=== PATIENT | female | born 1965 | race Caucasian/White ===

== ENCOUNTER 2021-11-23 19:21 | Emergency (ER) | payer MEDICAID, SELFPAY ==
[2021-11-23 19:28] VITALS: BP 150/79; PULSE 94; RESP 20; TEMP 37.2; O2SAT 98; BMI 27.4
--- NOTE | 2021-11-23 19:40 | ED.PSYCH ---
HPI - Psych General Chief Complaint: Psychiatric Symptoms <RONNELL Lainez Last Filed: 11/23/21 20:12> Stated Complaint: crisis <RONNELL Lainez Last Filed: 11/23/21 20:12> Time Seen by Provider: 11/23/21 19:25 <RONNELL Lainez Last Filed: 11/23/21 20:12> Source: patient and EMS <RONNELL Lainez Last Filed: 11/23/21 20:12> Mode of arrival: EMS <RONNELL Lainez Last Filed: 11/23/21 20:12> Limitations: no limitations <RONNELL Lainez Last Filed: 11/23/21 20:12> History of Present Illness HPI Narrative: 56 yo female here with reports of feeling anxious, depressed after finding out that her son suddenly tonight. Patient tells me that her son was incarcerated but was released yesterday. She left him this evening and when out to dinner. While she was eating dinner her neighbor called to let her know that her son had overdosed. Patient tells me she drove home and when she was there police on the scene told her that her son had . She became quite upset. Patient tells me that she is was very anxious, tearful and told EMS I wish I was . on arrival the patient tells me she is not feeling suicidal. She is feeling quite anxious and depressed about her son passing away but denies any suicidal or homicidal ideations. She was she is to be discharged home and is here with family <RONNELL Lainez Last Filed: 11/23/21 20:12> Related Data Allergies/Adverse Reactions: Allergies Allergy/AdvReac Type Severity Reaction Status Date / Time aspirin [ASA] Allergy Mild STOMACH Unverified 06/01/20 15:32 UPSET cephalexin Allergy Unknown Verified 02/09/19 00:00 naproxen Allergy Unknown Verified 06/09/18 00:00 <RONNELL Lainez Last Filed: 11/23/21 20:12> Review of Systems Review of Systems: Yes all other systems are reviewed and are negative <RONNELL Lainez Last Filed: 11/23/21 20:12> Constitutional: Constitutional: Reports no additional constitutional complaints, Denies body ache(s), Denies chills, Denies fever(s), Denies headache(s) and Denies weakness <Romana Hernandez NP - Last Filed: 11/23/21 20:12> Eyes: Eyes: Reports no additional eye complaints and Denies change in vision <Romana Hernandez NP - Last Filed: 11/23/21 20:12> ENT: Reports system reviewed and no additional complaints, except as documented, Denies dizziness, Denies headache(s), Denies nasal congestion, Denies nasal discharge and Denies neck pain <Romana Hernandez NP - Last Filed: 11/23/21 20:12> Cardiovascular: Cardiovascular: Reports no additional cardiovascular complaints, Denies chest pain, Denies leg edema and Denies dyspnea <Romana Hernandez NP - Last Filed: 11/23/21 20:12> Respiratory: Respiratory: Reports no additional respiratory complaints, Denies cough and Denies dyspnea <Romana Hernandez NP - Last Filed: 11/23/21 20:12> Gastrointestinal: Gastrointestinal: Reports no additional gastrointestinal complaints, Denies abdominal pain, Denies diarrhea, Denies nausea and Denies vomiting <Romana Hernandez NP - Last Filed: 11/23/21 20:12> Genitourinary: Genitourinary: Reports no additional female genitourinary complaints and Denies urinary incontinence <Romana Hernandez NP - Last Filed: 11/23/21 20:12> Musculoskeletal: Musculoskeletal: Reports no additional musculoskeletal complaints, Denies back pain, Denies arthralgias, Denies joint swelling, Denies neck pain, Denies numbness and Denies tingling <Romana Hernandez NP - Last Filed: 11/23/21 20:12> Integumentary/Breasts: Skin/Breast: Reports system reviewed and no additional complaints, except as docu and Denies rash <Romana Hernandez NP - Last Filed: 11/23/21 20:12> Neurologic: Reports system reviewed and no additional complaints, except as documented, Denies Abnormal speech present, Denies dizziness, Denies headache(s), Denies numbness, Denies tingling and Denies weakness <Romana Hernandez NP - Last Filed: 11/23/21 20:12> Psychiatric: Psychiatric: Reports anxiety, Reports depression, Denies homicidal ideation and Denies suicidal ideation <Romana Hernandez NP - Last Filed: 11/23/21 20:12> [facility], [facility] Past Medical History Attestation statement: The following information was validated with the patient. <Romana Hernandez NP - Last Filed: 11/23/21 20:12> Source: old records reviewed and nursing notes reviewed <Romana Hernandez NP - Last Filed: 11/23/21 20:12> Social History Social History: Social History Advance Directives: No Advance Directives Information Provided: No Patient : No <Romana Hernandez NP - Last Filed: 11/23/21 20:12> Physical Exam Vital Signs: Vital Signs: Last Vital Signs Temp 99 F 11/23/21 19:28 Pulse 94 11/23/21 19:28 Resp 20 11/23/21 19:28 BP 150/79 H 11/23/21 19:28 Pulse Ox 98 11/23/21 19:28 BMI result Body Mass Index 27.4 <Romana Hernandez NP - Last Filed: 11/23/21 20:12> Const: Other: +anxious <Romana Hernandez NP - Last Filed: 11/23/21 20:12> Orientation/consciousness: patient oriented x3 <Romana Hernandez NP - Last Filed: 11/23/21 20:12> Limitations: no limitations <Romana Hernandez NP - Last Filed: 11/23/21 20:12> HENMT: Head: Yes normal to inspection <RONNELL Lainez Last Filed: 11/23/21 20:12> Ears: hearing grossly normal bilaterally <Romana Hernandez NP - Last Filed: 11/23/21 20:12> General nose exam: Normal external nose present <Romana Hernandez NP - Last Filed: 11/23/21 20:12> Face and sinus: Yes normal facial exam <Romana Hernandez NP - Last Filed: 11/23/21 20:12> Mouth: Normal oral and palatal mucosa present <Romana Hernandez NP - Last Filed: 11/23/21 20:12> Throat: Yes posterior oropharynx normal <Romana Hernandez NP - Last Filed: 11/23/21 20:12> Eyes: General: appearance normal, both eyes and all related structures <Romana Hernandez NP - Last Filed: 11/23/21 20:12> Pupils: Equal, round and reactive pupils present <Romana Hernandez NP - Last Filed: 11/23/21 20:12> Neck: Neck: Yes normal visual inspection <Romana Hernandez NP - Last Filed: 11/23/21 20:12> Chest: Chest palpation & inspection: normal inspection of the chest <Romana Hernandez NP - Last Filed: 11/23/21 20:12> Resp: Effort & Inspection: normal respiratory effort <Romana Hernandez NP - Last Filed: 11/23/21 20:12> Auscultation: clear to auscultation bilaterally <Romana Hernandez NP - Last Filed: 11/23/21 20:12> Cardio: Rate: regular rate <Romana Hernandez NP - Last Filed: 11/23/21 20:12> Rhythm: regular rhythm <Romana Hernandez NP - Last Filed: 11/23/21 20:12> Peripheral pulses: Peripheral pulses 2+ throughout <Romana Hernandez NP - Last Filed: 11/23/21 20:12> GI: Inspection: Yes normal to inspection <Romana Hernandez NP - Last Filed: 11/23/21 20:12> Palpation (GI): Soft to palpation and nontender <Romana Hernandez NP - Last Filed: 11/23/21 20:12> Auscultation: normal bowel sounds <Romana Hernandez NP - Last Filed: 11/23/21 20:12> Back/Spine/Pelvis: Thoracic/Lumbar Spine: thoracic and lumbar spine normal to inspection <Romana Hernandez NP - Last Filed: 11/23/21 20:12> Skin: General skin exam: no rashes or lesions noted <Romana Hernandez NP - Last Filed: 11/23/21 20:12> Neuro: General: patient oriented x3, no focal motor deficits and normal sensation to monofilament <Romana Hernandez NP - Last Filed: 11/23/21 20:12> Cranial nerves: Yes CN's II-XII intact bilaterally and Yes Equal, round and reactive pupils present <Romana Hernandez NP - Last Filed: 11/23/21 20:12> Cognition (Neuro): normal cognition <Romana Hernandez NP - Last Filed: 11/23/21 20:12> Speech: No Abnormal speech present <Romana Hernandez NP - Last Filed: 11/23/21 20:12> Gait exam (Neuro): Normal gait present <Romana Hernandez NP - Last Filed: 11/23/21 20:12> Motor exam (neuro): 5/5 motor strength present throughout <Romana Hernandez NP - Last Filed: 11/23/21 20:12> Extrem: General: Yes normal to inspection <Romana Hernandez NP - Last Filed: 11/23/21 20:12> Course Course Course Narrative: 56 yo female here with grief response after finding out her son unexpectedly. D/t anxiety patient offered Po ativan but patient declined. there was initial concern for suicidal ideations but the patient tells me that when she 1st found out that he had she made a statement that she wished she was but she denies any suicidal ideation or homicidal ideations. She is alert and oriented x3. She is here with family and feels safe being discharged home. she does not want to speak to crisis or social work. I spoke to her aunt who is with her and she feels comfortable with the patient being discharged in her care. Reviewed worrisome signs and symptoms of when to return to the emergency department. Comfortable discharge home. <Romana Hernandez NP - Last Filed: 11/23/21 20:12> MDM - Psych Medical Records Attestation: I reviewed the patient's medical records. <Romana Hernandez NP - Last Filed: 11/23/21 20:12> Lab Data Attestation: I reviewed the patient's lab results. <Romana Hernandez NP - Last Filed: 11/23/21 20:12> Discharge Plan Discharge Clinical Impression: Grief at loss of child <Romana Hernandez NP - Last Filed: 11/23/21 20:12> Patient Disposition: Home, Self-Care <Romana Hernandez NP - Last Filed: 11/23/21 20:12> Instructions: Grief and Loss (ED) <Romana Hernandez NP - Last Filed: 11/23/21 20:12> Referrals: ED Physician,Generic [Physician] - 2 days (as needed) <Romana Hernandez NP - Last Filed: 11/23/21 20:12> Interventions: ED Discharge Assessment Last Done: 11/23/21 20:08 <Romana Hernandez NP - Last Filed: 11/23/21 20:12> Discharge Date/Time: 11/23/21 22:32 <Romana Hernandez NP - Last Filed: 11/23/21 20:12>
[2021-11-23] MEDS: LORazepam 1 MG TABLET 2 MG PO (19:44)
== END 2021-11-23 22:32 | disposition home or self-care (01) ==
LOC: HO.ED 20:11
PROVIDERS: Emergency Provider Emergency Medicine
DX: F43.20 Adjustment disorder, unspecified (principal); Z63.4 Disappearance and death of family member
CPT/HCPCS: 99282; 99283

== ENCOUNTER 2021-12-25 15:22 | Outpatient (REF) | payer MEDICAID, SELFPAY ==
--- NOTE | ~2021-12-25 | US_ITS ---
EXAMINATION: US EXTREMITY NONVASCULAR, LEFT CLINICAL INFORMATION: Pain left knee. Assess for Simons's cyst. COMPARISON: Venous ultrasound with Doppler 04/07/2019. TECHNIQUE: Ultrasound left lower extremity is targeted to the popliteal fossa. Grayscale imaging is performed. FINDINGS: There is no visible popliteal fossa cyst. No cystic or solid mass. No edema tracking in soft tissue planes. No skin thickening. US/US extremity nonvascular IMPRESSION: Unremarkable exam. No visible popliteal fossa cyst.
== END 2021-12-25 15:23 | disposition home or self-care (01) ==
LOC: HO.US 15:22
PROVIDERS: PCP Nurse Practitioner Primary Care; Visit Provider Nurse Practitioner Primary Care
DX: M25.562 Pain in left knee (principal)
CPT/HCPCS: 76882

== ENCOUNTER 2022-04-08 17:45 | Emergency (ER) | payer MEDICAID, SELFPAY ==
[2022-04-08 17:51] VITALS: BP 142/67; PULSE 73; RESP 16; TEMP 36.9; O2SAT 96; BMI 28.5
--- NOTE | 2022-04-08 19:19 | ED_ITS ---
HPI - General Adult General Chief complaint: Skin/Abscess/Foreign Body Stated complaint: rash all over body/headaches Time Seen by Provider: 04/08/22 19:03 Source: patient, RN notes reviewed and old records reviewed Mode of arrival: ambulatory Limitations: no limitations History of Present Illness HPI narrative: This is a 43-lams-flq-female, with a past medical history of TIA in 2019, bipolar disorder, and hypertension, who presents to the emergency department with complaints of rash, headache and myalgias x 3 days. She states that three days ago, she woke up with a diffuse, pimply like, itchy rash all over her body. She states that the rash became more flat over the last day. She states that the rash was very itchy, and is less itchy now. She denies any new soaps, lotions, or detergents. She states that she just started taking black cohosh 2 weeks ago. She states that she stayed at [facility] last week, otherwise no other new sleeping arragements. She lives alone. She states that she also had a headache as well as body aches over the last 3 days. She states that she has been taking Tylenol and ibuprofen for her symptoms, which decreases her headache pain, but the headache never goes away. Denies any fevers, nausea, or vomiting. She states that her urine has been darker since starting black cohosh, no dysuria, or hematuria. She admits to having alot of stressors as her son in November 2021 from an overdose. No other complaints or concerns at this time. MD complaint: Rash and headaches x 3 days. Onset (ago): day(s) Location: head Radiation: non-radiation Severity: moderate Severity scale (1-10): 6 Quality: aching Pain Consistency: constant Relieving factors: medication Exacerbating factors: none Associated symptoms: rash Treatments prior to arrival: none Related Data Previous Rx's Medication Instructions Recorded cyclobenzaprine 10 mg tablet 10 mg PO BEDTIME PRN muscle spasm 04/08/22 #5 tabs diphenhydramine HCl 25 mg capsule 50 mg PO Q8H PRN itching #14 caps 04/08/22 (Benadryl) prednisone 50 mg tablet 50 mg PO DAILY #5 tabs 04/08/22 Allergies Allergy/AdvReac Type Severity Reaction Status Date / Time aspirin [ASA] Allergy Mild STOMACH Unverified 06/01/20 15:32 UPSET cephalexin Allergy Unknown Verified 02/09/19 00:00 naproxen Allergy Unknown Verified 06/09/18 00:00 Review of Systems Review of Systems: Constitutional: No Fever, No Chills ENT/Mouth: No sore throat, No Rhinorrhea, No Swallowing Difficulty Eyes: No Eye Pain, No Swelling, No Redness Cardiovascular: No Chest Pain, No SOB, No Orthopnea, No Edema Respiratory: No Cough, No Sputum, No Wheezing, No dyspnea Gastrointestinal: No Nausea, No Vomiting, No Diarrhea, No abdominal Pain, No Hematochezia, No Melena Genitourinary: No Dysuria, No Urinary Frequency, No Hematuria Musculoskeletal: No joint pain, No Myalgias Skin: +rash, No Skin Lesions Neuro: +headache, No Weakness, No Numbness, No Dizziness Psych: No Anxiety/Panic, No Depression Heme/Lymph: No Bruising, No Lymphadenopathy Endocrine: No Polyuria, No Polydipsia PMFSH Social History Social History Advance Directives: No Advance Directives Information Provided: No Physical Exam ED Vital Signs: Vital Signs - 24 hr 04/08/22 17:51 Temperature 98.4 F Pulse Rate 73 Respiratory Rate 16 Blood Pressure 142/67 H Pulse Oximetry 96 Oxygen Delivery Method Room Air BMI result Body Mass Index 28.5 Appearance: Alert. Oriented X3. No acute distress. Resting comfortably in stretcher. Eyes: Pupils equal, round and reactive to light. EOMI ENT: Pharynx normal. Uvula midline. Oral pharynx nonerythematous, nonedematous. Tonsils are nonexudative. Tolerating oral secretions well. Neck: Normal inspection. Neck supple. CVS: Normal heart rate and rhythm. S1S2 regular. Pulses normal. Respiratory: No respiratory distress. Breath sounds normal. Lungs clear to auscultation bilaterally, no wheezes, rhonchi or rales. No stridor. Abdomen: Soft and nontender. +BS x4 Skin: Diffuse flat erythematous macules noted to the anterior and posterior tr unk, blanchable. No warmth, drainage or edema. Extremities: No lower extremity edema. Musculoskeletal: Bilateral cervical paraspinal muscle tenderness with spasms noted. Bilateral trapezial tenderness noted bilaterally. Tenderness to palpation at the occiput, with spasm noted. Full ROM of the neck. Neuro: Oriented X 3. No motor deficit. No sensory deficit. Course Course Course Narrative: This is a 22-ylmo-gaz-female who presents today with complaints of rash, headaches, and body aches x 3 days. Patient has no new soaps, lotions, detergents. She started taking black cohosh 2 weeks ago, also slept at [facility] last week. Rash appears to be allergic in nature. Patient's vital signs with in normal limits. No respiratory distress, tolerating secretions well. Patient also noted to have significant muscle spasms in her cervical paraspinous muscles and trapezial muscles, experiencing headaches over the last 3 days not resolving with tylenol/motrin. She has been under alot of stress due to recent of her son several months ago. Requesting urine to be tested as her urine has been dark since starting black cohosh, urinalysis pending at this time. Patient will be medicated in the department with benadryl 50mg PO and prednisone 50mg PO. Discharge Plan Discharge Clinical Impression: Contact dermatitis, Acute tension headache Patient Disposition: Home, Self-Care Instructions: Contact Dermatitis (ED), Tension Headache (ED), Acute Headache (ED) Additional Instructions: You were given your first dose of prednisone in the emergency department today. You can take your second dose of prednisone starting tomorrow (04/09/2022). You may take Benadryl as directed as needed for itching. This may cause drowsiness, do not drink alcohol or drive while taking this medication. You may take Flexeril as directed as needed for muscle spasms. This will help with the headache pain you are experiencing. If you develop new or worsening symptoms call 911 or come back to the ER for fu rther evaluation. Prescriptions: New prednisone 50 mg tablet 50 mg PO DAILY Qty: 5 0RF cyclobenzaprine 10 mg tablet 10 mg PO BEDTIME PRN (Reason: muscle spasm) Qty: 5 0RF diphenhydramine HCl [Benadryl] 25 mg capsule 50 mg PO Q8H PRN (Reason: itching) Qty: 14 0RF
[2022-04-08] MEDS: predniSONE 10 MG TABLET 50 MG PO (19:37)
[2022-04-08] MEDS: diphenhydrAMINE HCL 25 MG TABLET 50 MG PO (19:37)
== END 2022-04-08 20:41 | disposition home or self-care (01) ==
PROVIDERS: Emergency Provider Emergency Medicine; PCP Nurse Practitioner Primary Care
DX: L25.9 Unspecified contact dermatitis, unspecified cause (principal); G44.209 Tension-type headache, unspecified, not intractable; R21 Rash and other nonspecific skin eruption
CPT/HCPCS: 99282; 99283; Q0163

== ENCOUNTER 2023-01-22 11:30 | Outpatient (REF) | payer MEDICAID, SELFPAY ==
[2023-01-22 13:42] LABS: Vitamin B12 784 pg/mL (200-900)
[2023-01-24 05:33] LABS: Lyme Abs Screen <0.90 index
== END 2023-01-22 11:31 | disposition home or self-care (01) ==
LOC: HO.LAB 11:30
PROVIDERS: PCP Nurse Practitioner Primary Care; Visit Provider Psychiatry & Neurology Neurology
DX: G31.84 Mild cognitive impairment of uncertain or unknown etiology (principal)
CPT/HCPCS: 36415; 82607; 86617; 86618

== ENCOUNTER 2023-02-25 13:42 | Outpatient (REF) | payer MEDICAID, SELFPAY ==
--- NOTE | ~2023-02-25 | MM_ITS ---
EXAMINATION: MM DIAGNOSTIC DIGITAL BREAST TOMOSYNTHESIS, BILATERAL US DIAGNOSTIC ULTRASOUND BREAST, LEFT CLINICAL INFORMATION: Chronic tender palpable nodule posterior lateral left breast. No discharge. No erythema. Prior mammography 2009. The lifetime risk of breast cancer based on the Tyrer-Cuzick Model is 7%. COMPARISON: Mammography: 02/20/2010 TECHNIQUE: Digital breast tomosynthesis is performed in both the craniocaudal and mediolateral oblique views along with computer-aided detection (CAD). Synthesized 2D images are generated from the tomosynthesis. Additional exaggerated left CC view is obtained. Ultrasound left breast is targeted to the area of palpable concern posterior 3:00 position. Grayscale imaging and color Doppler are performed without and with harmonics. FINDINGS: There are scattered areas of fibroglandular density (ACR BI-RADS breast composition Category b). The palpable concern posterior 3:00 left breast corresponds to a superficial circumscribed bilobed nodule, overall size approximately 1.6 x 1.1 cm. There is no surrounding spiculation or associated calcification. No skin thickening or coarsening of the Wilberto's ligaments. The axilla are unremarkable. The remainder of the bilateral breasts are unremarkable. No significant mass or architectural abnormality. No abnormal calcifications. Ultrasound targeted to the palpable area outer left breast demonstrates a superficial circumscribed hypoechoic bilobed nodule residing adjacent to the deep dermis with overall dimensions approximately 1.6 x 1.1 cm, long axis parallel with the skin. There is subtle thin stalk-like extension into the skin from the smaller moiety. There is hyperemia around the lesion on color Doppler along with scattered internal color flow. There is increased through-transmission of sound. No skin thickening or edema tracking in soft tissue planes. Results are discussed with the patient at time of visit. The palpable finding left breast most likely represents inflamed sebaceous cyst with subdermal extension. Surgical consult is recommended for management. MM/MM tomosynthesis diagnostic BI IMPRESSION: Left: -Palpable concern likely inflamed sebaceous cyst with subdermal extension. Right: -No mammographic evidence of malignancy. ASSESSMENT: BI-RADS 3: Probably Benign RECOMMENDATION: Surgical consult for left breast lesion. This patient's information was entered into a reminder system with a target due date for their next mammogram.
== END 2023-02-25 13:43 | disposition home or self-care (01) ==
LOC: HO.MAMMO 13:42
PROVIDERS: PCP Nurse Practitioner Primary Care; Visit Provider Internal Medicine
DX: N63.32 Unspecified lump in axillary tail of the left breast (principal)
CPT/HCPCS: 76642; 77062; 77066

== ENCOUNTER 2023-10-21 13:02 | Outpatient (REF) | payer MEDICAID, SELFPAY ==
[2023-10-21 15:25] LABS: MANUAL DIFF FLAG NO
[2023-10-21 17:10] LABS: Basophils Absolute Auto 0.1 X10*3/uL (0.0-0.2); Basophils Percent Auto 1.1 % (0-2); Eosinophils Absolute Auto 0.2 X10*3/uL (0.0-0.4); Eosinophils Percent Auto 2.3 % (0-4); Hematocrit 40.6 % (37.0-47.0); Hemoglobin 13.8 g/dl (12.0-16.0); Imm Gran Abs Auto 0.04 X10*3/uL (0.00-0.03); Imm Gran Pct Auto 0.4 % (0.0-0.4); Lymphocytes Absolute Auto 3.3 X10*3/uL (1.2-4.9); Lymphocytes Percent Auto 32.6 % (20-40); Mean Corpuscular Volume 82.4 fL (80.0-98.0); Monocytes Absolute Auto 0.7 X10*3/uL (0.1-1.2); Monocytes Percent Auto 7.3 % (2-11); Neutrophils Absolute Auto 5.7 x10*3/uL (2.0-8.3); Neutrophils Percent Auto 56.3 % (45-73); Platelet Count 351 X10*3/uL (160-400); Red Blood Count 4.93 X10*6/uL (4.20-5.50); Red Cell Distribution Width 12.9 % (11.0-16.0)
[2023-10-21 17:34] LABS: Creatinine Urine 201.27 mg/dL; Microalbum/Creatinine Ratio Ur 10.9 ug/mg cr (<30)
[2023-10-21 17:44] LABS: Anion Gap 14 (12-20); Blood Urea Nitrogen 11 mg/dL (9-16); Calcium 9.7 mg/dL (8.4-10.2); Carbon Dioxide 32 mmol/L (22-29); Chloride 100 mmol/L (96-108); Cholesterol 185 mg/dL (<200); Estimated Glomerular Filt Rate 54; Glucose Random 92 mg/dL (60-115); HDL Cholesterol 43 mg/dL (>40); LDL Cholesterol Calculated 81 mg/dL (<100); Potassium 4.4 mmol/L (3.3-5.1); Sodium 142 mmol/L (135-145); Triglycerides 307 mg/dL (<150)
[2023-10-21 17:49] LABS: TSH reflex Free T4 1.54 uIU/mL (0.32-4.0)
== END 2023-10-21 13:03 | disposition home or self-care (01) ==
LOC: HO.LAB 13:02
PROVIDERS: Absent Provider Nurse Practitioner Primary Care; PCP Nurse Practitioner Primary Care; Visit Provider Nurse Practitioner Family
DX: Z01.818 Encounter for other preprocedural examination (principal); I10 Essential (primary) hypertension; E78.1 Pure hyperglyceridemia
CPT/HCPCS: 36415; 80048; 80061; 82043; 82570; 84443; 85025; 99212

== ENCOUNTER 2023-10-21 13:02 | Outpatient (AMB) | payer MEDICAID, SELFPAY ==
[2023-10-21 13:06] VITALS: BP 139/77; PULSE 63
--- NOTE | 2023-10-21 13:06 | MHC.OFFVIS ---
Intake Vital Signs 10/21/23 13:06 Height 5 ft 6 in BMI Reason not done Patient refused/unable BP 139/77 Blood Pressure Location Lt brachial Position Sitting Pulse 63 Intake Visit Reasons: Colonoscopy Screening Intake Note: Patient presents to in office visit today as a new patient for colonoscopy screening. CC: Patient reports belching a lot sometimes and she states she takes TUMS for it. Denies other GI symptoms. She has never had a colonoscopy done. She reports having an episode of vaginal bleeding for x1 day last week. Dermatology Nurse Required: No Accompanied by: Self / Same As Patient Allergies aspirin [ASA] Allergy (Mild, Verified 10/21/23 13:12) STOMACH UPSET cephalexin Allergy (Unknown, Verified 10/21/23 13:12) Unknown naproxen Allergy (Unknown, Verified 10/21/23 13:12) Unknown HPI Colonoscopy Screening HPI Details 57 year old? female here today for pre colonoscopy screening.? Patient reports that she had a history of TIA in 2018, currently is on lipid lowering agent and blood pressure medications. Patient was sent to us by her PCP.? This is her first colonoscopy screening.? Patient denies any gastrointestinal symptoms in the past or at present.? However patient does admit to occasional reflux and belching. Patient reports that she like spicy food and her symptoms are related strictly to the food that she eats. Patient denies dyspepsia, dysphagia or odynophagia Denies any personal or family history of gastrointestinal disease, colon polyps, or cancer.? Denies history of difficulty with sedation or anesthesia in the past.? Negative for history of sleep apnea.? Denies any history of cardiac, renal, pulmonary, or hepatic disease.?? No history of infectious? diseases like hepatitis A, B, C, HIV or tuberculosis.? Patient is not on any anticoagulation therapy. [facility] Medical History (Updated 10/21/23 @ 13:16 by JULI Gregory) Hx TIA/stroke w/o resid Family History (Updated 10/21/23 @ 13:10 by JULI Gregory) Mother Leukemia Maternal Aunt H/O: hysterectomy Social History (Updated 10/21/23 @ 13:16 by JULI Gregory) Alcohol intake: current Alcohol intake frequency: a few times a month Patient Tobacco Use Status: Former Tobacco user Substance Use Type: Marijuana Review of Systems Const Denies weight gain and Denies weight loss ENT Reports no additional complaints, Denies dysphagia and Denies odynophagia Card Reports no additional complaints Resp Reports no additional complaints GI Denies abdominal pain, Denies belching, Denies melena, Denies bloating, Denies change in bowel habits, Denies dysphagia, Denies excessive flatus, Denies dyspepsia, Reports heartburn (Occasional), Denies diarrhea, Denies loose stools, Denies nausea, Denies odynophagia and Denies vomiting Musc Reports no additional complaints Neuro Reports no additional complaints Psych Reports no additional complaints Endo Reports no additional complaints Physical Exam Vital Signs: Last Vital Signs Pulse 63 10/21/23 13:06 BP 139/77 10/21/23 13:06 Const General: healthy appearing, no acute distress and well developed Nutritional Appearance: well nourished Orientation/consciousness: patient oriented x3 Resp Effort & Inspection: normal respiratory effort, able to speak in complete sentences, no tracheal deviation and symmetric chest movement Auscultation: clear to auscultation bilaterally Cardio Rate: regular rate GI Inspection: Yes normal to inspection and No distended Palpation (GI): Soft to palpation, not firm, nontender and No hepatosplenomegaly present Auscultation: normal bowel sounds General: Yes no CVA tenderness Back/Spine/Pelvis Back: no CVA tenderness Skin General skin exam: elasticity normal, turgor normal and dry skin Neuro General: patient oriented x3 Psych Appearance: grossly normal Mental Status: mental status grossly normal Assessment & Plan Assessment & Plan (1) Screen for colon cancer: Code(s): Z12.11 - Encounter for screening for malignant neoplasm of colon Plan Patient denies any GI, cardiac or respiratory symptoms.? Occasional acid reflux related to consumption of spicy food. Patient will avoid dietary triggers. History of TIA, patient is taking blood pressure medications currently and denies any cardiac or respiratory symptoms. Denies any issues with anesthesia in the past.? Denies any history of sleep apnea.? No history infectious diseases in the past or present.? Not on any anticoagulation therapy.? No family or personal history of colon cancer or polyps.? Patient denies melena, hematochezia, unintentional weight loss or ribbon like stools.? Discussed at length the pre-procedure,? prep, diet & medications as well as what to expect prior, during and after the procedure.?? Stressed the importance of good bowel prep. ?Recommended the use of Vaseline or Calmoseptine OTC & baby wipes with bowel movements to promote comfort.? ?Patient verbalizes understanding and agrees to plan of care.? She was given the opportunity to ask questions and all questions answered.? We will see her after the procedure.? Medications: New polyethylene glycol 3350 (Miralax) As directed by gastroenterology department at [facility] 238 grams PO ONCE 238 grams 0RF Z12.11 - Encounter for screening for malignant neoplasm of colon bisacodyl (Dulcolax (bisacodyl)) take 4 tabs at noon the day before your colonoscopy 20 mg (4 x 5 mg) PO ONCE 1 day 4 tabs 0RF Z12.11 - Encounter for screening for malignant neoplasm of colon Coding Level of Care Code New Pt Level 3 (83322) Diagnoses Screen for colon cancer Z12.11 Time Spent (min) 40 Comment 30 minutes spent with patient and additional 10 minutes spent reviewing her records
== END 2023-10-21 14:51 | disposition home or self-care (01) ==
PROVIDERS: PCP Nurse Practitioner Primary Care; Visit Provider Nurse Practitioner Family
DX: Z12.11 Encounter for screening for malignant neoplasm of colon (principal); Z01.818 Encounter for other preprocedural examination
CPT/HCPCS: 99203

== ENCOUNTER 2024-03-04 12:52 | Outpatient (REF) | payer MEDICAID, SELFPAY ==
--- NOTE | ~2024-03-04 | MM_ITS ---
EXAMINATION: MM SCREENING DIGITAL BREAST TOMOSYNTHESIS, BILATERAL CLINICAL INFORMATION: Screening. Asymptomatic. The patient has a known sebaceous cyst in the deep third of the COMPARISON: Mammography: This study is compared with prior exams dating back to 2009. TECHNIQUE: Digital breast tomosynthesis is performed in both the craniocaudal and mediolateral oblique views along with computer-aided detection (CAD). Synthesized 2D images are generated from the tomosynthesis. FINDINGS: There are scattered areas of fibroglandular density (ACR BI-RADS breast composition Category b). There are no significant masses, abnormal calcifications, or other abnormalities. The patient has a known, mammographically unchanged sebaceous cyst in the skin of the upper outer quadrant of the right breast. MM/MM tomosynthesis screening BI IMPRESSION: No mammographic evidence of malignancy. ASSESSMENT: BI-RADS BI-RADS 2 - Benign Findings RECOMMENDATION: Routine annual mammography screening. 1 year F/U This examination should not preclude the clinical evaluation of a suspicious palpable abnormality. This patient's information was entered into a reminder system with a target due date for their next mammogram.
== END 2024-03-04 12:53 | disposition home or self-care (01) ==
LOC: HO.MAMMO 12:52
PROVIDERS: PCP Nurse Practitioner Primary Care; Visit Provider Nurse Practitioner Primary Care
DX: Z12.31 Encounter for screening mammogram for malignant neoplasm of breast (principal)
CPT/HCPCS: 77063; 77067

== ENCOUNTER → 2024-03-04 13:00 | Outpatient (BNV) | payer MEDICAID, SELFPAY | PROVIDERS: PCP Nurse Practitioner Primary Care; Visit Provider Radiology Diagnostic Radiology | DX: Z12.31 Encounter for screening mammogram for malignant neoplasm of breast (principal) | CPT/HCPCS: 77063; 77067 ==

== ENCOUNTER 2024-11-11 16:02 | Outpatient (REF) | payer MEDICAID, SELFPAY ==
[2024-11-11 18:27] LABS: Hematocrit 38.9 % (37.0-47.0); Hemoglobin 13.4 g/dl (12.0-16.0)
[2024-11-11 18:44] LABS: Estimated Average Glucose 100 mg/dL; Hemoglobin A1c % 5.1 % (<6.0); Total Hemoglobin (HGBA1C) 3549.5579 umol/L
[2024-11-11 18:57] LABS: Anion Gap 12 (12-20); Blood Urea Nitrogen 23 mg/dL (9-16); Calcium 9.2 mg/dL (8.4-10.2); Carbon Dioxide 32 mmol/L (22-29); Chloride 100 mmol/L (96-108); Cholesterol 148 mg/dL (<200); Estimated Glomerular Filt Rate 49; Glucose Random 84 mg/dL (60-115); HDL Cholesterol 30 mg/dL (>40); LDL Cholesterol Calculated 97 mg/dL (<100); Potassium 2.9 mmol/L (3.3-5.1); Sodium 141 mmol/L (135-145); Triglycerides 108 mg/dL (<150)
[2024-11-11 19:04] LABS: TSH reflex Free T4 0.66 uIU/mL (0.32-4.0)
[2024-11-11 19:09] LABS: Insulin 5 uU/mL (2-29)
--- OUTSIDE RECORDS SUMMARY | 2024-11-11 19:15 | XMS_ITS | Encounter Summary ---
Author Organization [employer] Address [address] [facility] 7t [place] [address] Care Team Providers Care Supervisor Benzene Refining Name Role Phone Syl Godfrey Primary Care Provider [phone] Reason for Visit * Reason Comments Med Refill Encounter Details Date Type Department Care Team ([facility] st Contact Info) Description 08/26/2024 Refill [facility] MEDICINE [address] [place] [address] Syl Godfrey ANP 230 [place] [address] Benign essential HTN Social History Tobacco Use Types Packs/Day Years Used Date Smoking Tobacco: Never Passive Smoke Exposure: Never Smokeless Tobacco: Never Comments:Smoke pot once in a while Alcohol Use Standard Drinks/Week Comments Yes 0 (1 standard drink = 0.6 oz pur e alcohol) Depression Answer Date Recorded Patient Health Questionnaire-9 Score 16 01/26/2024 Patient Health Questionnaire-9 Score 16 01/26/2024 Last PHQ-9: Questionnaire Data Not on file 0 01/26/2024 Housing Stability Answer Date Recorded What is your housing situation today? I have housing today, but I am worried about losing housing in the future 08/19/[address] you li ve. Do you have problems with any of the following? None of the above 08/19/2024 Food Insecurity Answer Date Recorded Within the past 12 months, y ou worried that your food would run out before you got money to buy more: Never True 08/19/2024 Within the past 12 months,th e food you bought just didn't last and you didn't have enough money to get more: Never True 01/2024 Transportation Answer Date Recorded In the past 12 months, has l ack of transportation kept you from medical appts, meetings, work or from getting things needed for daily living? Yes, it has kept me from medical appointments or getting medications. 08/19/2024 Utilities Answer Date Recorded In the past 12 months, has t he electric, gas, oil or water company threatened to shut off services in your home? No 08/19/2024 Depression Answer Date Recorded Patient Health Questionnaire-2 Score 4 08/19/2024 Internet Access Answer Date Recorded Internet Access Q1 Yes 08/19/2024 Internet Access Q2 Not on file 08/19/2024 Comments No Sex and Gender Information Value Date Recorded Sex Assigned at Female 07/15/2022 10:14 AM EDT Legal Sex Female 10:14 AM EDT Gender Identity Female 07/15/2022 10:14 AM EDT Sexual Orientation Straight 07/15/2022 10 :14 AM EDT documented as of this encounter Plan of Treatment Upcoming Encounters Date Type Department Care Team (Late st Contact Info) Description 11/22/2024 2:15 PM EDT Office Visit [facility] MEDICINE [address] [place] [address] Syl Godfrey ANP [address] [place] [address] 01/31/2025 1:30 PM EDT Office Visit [address] [address] Syl Godfrey ANP [address] [place] [address] documented as of this encounter Visit Diagnoses Diagnosis Benign essential HTN documented in this encounter Additional Health Concerns Assessment Noted Time PHQ-9 Depression Total Score: 16 024 1:50 PM EDT documented as of this encounter Care Teams Supervisor Benzene Refining Relationship Specialty Start Date End Date Syl Godfrey ANP [address] [place] [address] PCP - General Family Medicine 04/05/20 documented as of this encounter
--- OUTSIDE RECORDS SUMMARY | 2024-11-11 19:15 | XMS_ITS | Encounter Summary ---
Author Organization [employer] Address [address] [facility] 7t [place] [address] Care Team Providers Care Work Order Detailer Name Role Phone Bekah Syl REED Primary Care Provider [phone] Reason for Visit * Reason Onset Date Comments Med Refill 11/02/2024 Encounter Details Date Type Department Care Team ([facility] st Contact Info) Description 11/02/2024 Refill [facility] MEDICINE 230 [place] [address] Kelsie Ruiz, RN 230 [place] [address] Social History Tobacco Use Types Packs/Day Years [...] AM EDT documented as of this encounter Miscellaneous Notes * Telephone Encounter - Kelsie Ruiz RN - 11/02/2024 9:31 AM EST Pt states on mychart that melatonin increased to 10mg at last OV but script not sent. This is documented in OV note. Queued new dose documented in this encounter Plan of Treatment Upcoming Encounters Date Type Department Care Team (Late st Contact Info) Description 11/22/2024 2:15 PM EDT Office Visit [facility] MEDICINE [address] [place] [address] Syl Godfrey ANP [address] [place] [address] 01/31/2025 1:30 PM EDT Office Visit [facility] MEDICINE [address] [place] [address] Syl Godfrey ANP [address] [place] [address] documented as of this encounter Visit Diagnoses Not on filedocumented in this encounter Additional Health Concerns Assessment Noted Time PHQ-9 Depression Total Score: 16 024 1:50 PM EDT documented as of this encounter Care Teams Work Order Detailer Relationship Specialty Start Date End Date Syl Godfrey ANP [address] [place] [address] PCP - General Family Medicine 04/05/20 documented as of this encounter
--- OUTSIDE RECORDS SUMMARY | 2024-11-11 19:15 | XMS_ITS | Encounter Summary ---
Author Organization [employer] Address [address] [facility] 7t [place] [address] Care Team Providers Care Fructose Loader Name Role Phone GodfreySyl Primary Care Provider [phone] Reason for Visit * Reason Comments Med Refill Encounter Details Date Type Department Care Team ([facility] st Contact Info) Description 03/08/2024 Refill [facility] MEDICINE 230 [place] [address] Meghana Cloud MD 230 [place] [address] Benign essential HTN Social History Tobacco Use [...] is your housing situation today? I have maycol ryder 07/21/[address] you li ve. Do you have problems with any of the following? None of the above 07/21/2023 Food Insecurity Answer Date Recorded Within the past 12 months, y ou worried that your food would run out before you got money to buy more: Never True 07/21/2023 Within the past 12 months,th e food you bought just didn't last and you didn't have enough money to get more: Never True 11/ 02/2023 Transportation Answer Date Recorded In the past 12 months, has l ack of transportation kept you from medical appts, meetings, work or from getting things needed for daily living? No 07/21/2023 Utilities Answer Date Recorded In the past 12 months, has t he electric, gas, oil or water company threatened to shut off services in your home? No 07/21/2023 Depression Answer Date Recorded Patient Health Questionnaire-2 Score 4 01/26/2024 Comments No Sex and Gender Information Value [...] Description 11/22/2024 2:15 PM EDT Office Visit [address] [address] Syl Godfrey ANP [address] [place] [address] 01/31/2025 1:30 PM EDT Office Visit [facility] MEDICINE [address] [place] [address] Syl Godfrey ANP [address] [place] [address] documented as of this encounter Visit Diagnoses Diagnosis Benign essential HTN documented in this encounter Additional Health Concerns Assessment Noted Time PHQ-9 Depression Total Score: 16 024 1:50 PM EDT documented as of this encounter Care Teams Fructose Loader Relationship Specialty Start Date End Date Syl Godfrey ANP [address] [place] [address] PCP - General Family Medicine 04/05/20 documented as of this encounter
--- OUTSIDE RECORDS SUMMARY | 2024-11-11 19:15 | XMS_ITS | Encounter Summary ---
Author Organization [employer] Address [address] [facility] 7t [place] [address] Care Team Providers Care Penciller Name Role Phone Bekah Syl REED Primary Care Provider Reason for Visit * Reason Comments Med Change Request Encounter Details Date Type Department Care Team ([facility] st Contact Info) Description 03/13/2023 Refill [facility] MEDICINE 230 [place] [address] Jocelyne Cheng CNM [address] [place] [address] Social History Tobacco Use Types Packs/Day Years Used Date Smoking Tobacco: Never Passive Smoke Exposure: Never Smokeless Tobacco: Never Comments:Smoke pot once in a while Alcohol Use Standard Drinks/Week Comments Yes 0 (1 standard drink = 0.6 oz pur e alcohol) Depression Answer Date Recorded Patient Health Questionnaire-9 Score 17 02/03/2023 Depression Answer Date Recorded Patient Health Questionnaire-2 Score 5 02/03/2023 Comments No Sex and Gender Information Value Date Recorded Sex Assigned at Female 07/15/2022 10:14 AM EDT Legal Sex Female 10:14 AM EDT Gender Identity Female 07/15/2022 10:14 AM EDT Sexual Orientation Straight 07/15/2022 10 :14 AM EDT COVID-19 Exposure Response Date Recorded In the last 10 days, have yo u been in contact with someone who was confirmed or suspected to have Coronavirus/COVID-19? No / Unsure 03/10/2023 10:51 AM EDT documented as of this encounter Miscellaneous Notes * Telephone Encounter - Kelsie Ruiz RN - 04/25/2023 3:17 PM EDT T/C placed to pt re below message. No answer, left v/m. Will also message on [employer]. * Telephone Encounter - Jocelyne Cheng CNM - 04/25/2023 10:44 AM EDT Pretty sure she decided against taking due to insurance issues. I asked nurses to f/u. Thanks! * Telephone Encounter - Jocelyne Cheng CNM - 04/25/2023 8:37 AM EDT Please confirm that Dilia would like to try this. Last I know, it wasn't covered by insurance and she didn't want to. Thanks! documented in this encounter Plan of Treatment Upcoming Encounters Date Type Department Care Team (Late st Contact Info) Description 11/22/2024 2:15 PM EDT Office Visit [address] [address] Syl Godfrey ANP [address] [place] [address] 01/31/2025 1:30 PM EDT Office Visit [facility] MEDICINE [address] [place] [address] Syl Godfrey ANP [address] [place] [address] documented as of this encounter Visit Diagnoses Not on filedocumented in this encounter Additional Health Concerns Assessment Noted Time PHQ-9 Depression Total Score: 17 023 3:15 PM EDT documented as of this encounter Care Teams Penciller Relationship Specialty Start Date End Date Syl Godfrey ANP [address] [place] [address] PCP - General Family Medicine 04/05/20 documented as of this encounter
--- OUTSIDE RECORDS SUMMARY | 2024-11-11 19:15 | XMS_ITS | Encounter Summary ---
Author Organization [employer] Address [address] [facility] 7t [place] [address] Care Team Providers Care Supervisor Pyrotechnic Loading Name Role Phone Syl Godfrey Primary Care Provider [phone] Reason for Visit * Reason Onset Date Comments Prior Authorization 10/01/2023 Encounter Details Date Type Department Care Team ([facility] st Contact Info) Description 10/01/2023 Telephone [facility] MEDICINE 230 [place], [place] [phone] Syl Godfrey ANP [address] [place] [address] Prior Authorization Social History Tobacco Use Types Packs/Day Years Used Date Smoking Tobacco: Never Passive Smoke Exposure: Never Smokeless Tobacco: Never Comments:Smoke pot once in a while Alcohol Use Standard Drinks/Week Comments Yes 0 (1 standard drink = 0.6 oz pur e alcohol) Depression Answer Date Recorded Patient Health Questionnaire-9 Score 17 02/03/2023 Housing Stability Answer Date Recorded What is [...] enough money to get more: Never True 02/2023 Transportation Answer Date Recorded In the [...] encounter Miscellaneous Notes * Telephone Encounter - Debra Rizzo - 11/13/2023 12:39 PM EST SPOKE WITH PHARMACIST AT [facility], PATIENT DOES NO NEED PA ON MEDICATION ON CONVERSATION BELOW BUT DOES NEED REFILLS FOR WELLBUTRIN. PLEASE AND THANK YOU * Telephone Encounter - Monica Kang - 10/02/2023 3:17 PM EST Please see message below and advise if agree with PA. Thank you * Telephone Encounter - Javier Mccarty - 10/01/2023 4:08 PM EST Tc from pt stating medication needs prior authorization: buPROPion XL (Wellbutrin XL) 300 MG 24 hr tablet, hydroCHLOROthiazide (HYDRODiuril) 12.5 MG tablet,Multiple Vitamin (multivitamin) tablet, QUEtiapine (SEROquel) 300 MG tablet documented in this encounter Plan of Treatment Upcoming Encounters Date Type Department Care Team (Late st Contact Info) Description 11/22/2024 2:15 PM EDT Office Visit [facility] MEDICINE [address] [place] [address] Syl Godfrey ANP [address] [place] [address] 01/31/2025 1:30 PM EDT Office Visit [facility] MEDICINE [address] [place] [address] Syl Godfrey ANP [address] [place] [address] documented as of this encounter Visit Diagnoses Not on filedocumented in this encounter Additional Health Concerns Assessment Noted Time PHQ-9 Depression Total Score: 17 023 3:15 PM EDT documented as of this encounter Care Teams Supervisor Pyrotechnic Loading Relationship Specialty Start Date End Date Syl Godfrey ANP 230 [place] [address] PCP - General Family Medicine 04/05/20 documented as of this encounter
--- OUTSIDE RECORDS SUMMARY | 2024-11-11 19:15 | XMS_ITS | Encounter Summary ---
Author Organization [employer] Address [address] [facility] 7t [place] [address] Care Team Providers Care Medical Transcriber Name Role Phone Syl Godfrey Primary Care Provider [phone] Reason for Visit * Reason Comments Med Refill Encounter Details Date Type Department Care Team (Late st Contact Info) Description 02/04/2023 Refill [facility] MEDICINE [address] [place] [address] Syl Godfrey ANP [address] [place] [address] Social History Tobacco Use Types Packs/Day Years Used Date Smoking Tobacco: Never Smokeless Tobacco: Never Alcohol Use Standard Drinks/Week Comments Yes 0 (1 standard drink = 0.6 oz pur e alcohol) Depression Answer Date Recorded Patient Health Questionnaire-9 Score 17 02/03/2023 Depression Answer Date Recorded Patient Health Questionnaire-2 Score 5 02/03/2023 Comments Unknown Sex and Gender Information Value Date Recorded [...] suspected to have Coronavirus/COVID-19? No / Unsure 02/06/2023 10:15 AM EDT documented as of this encounter Plan of Treatment Upcoming Encounters Date Type Department Care Team (Late st Contact Info) Description 11/22/2024 2:15 PM EDT Office Visit [facility] MEDICINE [address] [place] [address] Syl Godfrey ANP [address] [place] [address] 01/31/2025 1:30 PM EDT Office Visit [facility] [address] [place] [address] Syl Godfrey ANP [address] [place] [address] documented as of this encounter Visit Diagnoses Not on filedocumented in this encounter Additional Health Concerns Assessment Noted Time PHQ-9 Depression Total Score: 17 023 3:15 PM EDT documented as of this encounter Care Teams Medical Transcriber Relationship Specialty Start Date End Date Syl Godfrey ANP [address] [place] [address] PCP - General Family Medicine 04/05/20 documented as of this encounter
--- OUTSIDE RECORDS SUMMARY | 2024-11-11 19:15 | XMS_ITS | Encounter Summary ---
Author Organization [employer] Address [address] [facility] 7t [place] [address] Care Team Providers Care Interior Decorator Painting Name Role Phone Syl Godfrey Primary Care Provider [phone] Encounter Details Date Type Department Care Team (Late Contact Info) Description 03/05/[address] [address] Syl Godfrey ANP [address] [place] [address] Social History Tobacco Use Types Packs/Day Years Used Date Smoking Tobacco: Never Passive Smoke Exposure: Never Smokeless Tobacco: Never Alcohol Use Standard [...] suspected to have Coronavirus/COVID-19? No / Unsure 02/18/2023 10:32 AM EDT documented as of this encounter Plan of Treatment Upcoming Encounters Date Type Department Care Team (Late st Contact Info) Description 11/22/2024 2:15 PM EDT Office Visit [facility] MEDICINE [address] [place] [address] Syl Godfrey ANP [address] [place] [address] 01/31/2025 1:30 PM EDT Office Visit [address] [address] Syl Godfrey ANP [address] [place] [address] documented as of this encounter Visit Diagnoses Not on filedocumented in this encounter Additional Health Concerns Assessment Noted Time PHQ-9 Depression Total Score: 17 023 3:15 PM EDT documented as of this encounter Care Teams Interior Decorator Painting Relationship Specialty Start Date End Date Syl Godfrey ANP [address] [place] [address] PCP - General Family Medicine 04/05/20 documented as of this encounter
--- OUTSIDE RECORDS SUMMARY | 2024-11-11 19:15 | XMS_ITS | Encounter Summary ---
Author Organization [employer] Address 75 [facility] 7t [place] [address] Care Team Providers Care Agricultural Research Technician Name Role Phone Syl Godfrey Primary Care Provider [phone] Reason for Visit * Reason Onset Date Comments Med Refill 08/03/2024 Encounter Details Date Type Department Care Team ([facility] st Contact Info) Description 08/03/2024 Refill [facility] MEDICINE [address] [place] [address] Syl Godfrey ANP [address] [place] [address] Arthritis of right subtalar joint Social History Tobacco Use Types Packs/Day Years [...] Description 11/22/2024 2:15 PM EDT Office Visit [facility] [address] [place] [address] Syl Godfrey ANP [address] [place] [address] 01/31/2025 1:30 PM EDT Office Visit [facility] [address] [place] [address] Syl Godfrey ANP [address] [place] [address] documented as of this encounter Visit Diagnoses Diagnosis Arthritis of right subtalar joint documented in this encounter Additional Health Concerns Assessment Noted Time PHQ-9 Depression Total Score: 16 024 1:50 PM EDT documented as of this encounter Care Teams Agricultural Research Technician Relationship Specialty Start Date End Date Syl Godfrey ANP [address] [place] [address] PCP - General Family Medicine 04/05/20 documented as of this encounter
--- OUTSIDE RECORDS SUMMARY | 2024-11-11 19:15 | XMS_ITS | Encounter Summary ---
Author Organization [employer] Address 75 [facility] 7t [place] [address] Care Team Providers Care Floor Press Operator Name Role Phone Syl Godfrey Primary Care Provider [phone] Reason for Visit * Reason Comments Med Refill Encounter Details Date Type Department Care Team ([facility] st Contact Info) Description 02/24/2024 Refill [facility] MEDICINE [address] [place], [place] [phone] Syl Godfrey ANP [address] [place] [address] Social History Tobacco Use Types Packs/Day Years [...] Description 11/22/2024 2:15 PM EDT Office Visit [facility] MEDICINE [address] [place] [address] Syl Godfrey ANP [address] [place] [address] 01/31/2025 1:30 PM EDT Office Visit [address] [address] Syl Godfrey ANP [address] [place] [address] documented as of this encounter Visit Diagnoses Not on filedocumented in this encounter Additional Health Concerns Assessment Noted Time PHQ-9 Depression Total Score: 16 024 1:50 PM EDT documented as of this encounter Care Teams Floor Press Operator Relationship Specialty Start Date End Date Syl Godfrey ANP [address] [place] [phone] PCP - General Family Medicine 04/05/20 documented as of this encounter
--- OUTSIDE RECORDS SUMMARY | 2024-11-11 19:15 | XMS_ITS | Encounter Summary ---
Author Organization [employer] Address [address] [place] [address] 7 [place] [address] Care Team Providers Care Street Light Mechanic Name Role Phone Syl Godfrey Primary Care Provider [phone] Encounter Details Date Type Department Care Team (Late st Contact Info) Description 09/20/2022 Orders Only [facility] [address] [place] [address] Syl Godfrey ANP [address] [place] [address] Healthcare maintenance (Primary Dx) Social History Tobacco Use Types Packs/Day Years Used Date Smoking Tobacco: Never Assessed Comments Unknown Sex and Gender Information Value [...] Description 11/22/2024 2:15 PM EDT Office Visit [address] [address] Syl Godfrey ANP 230 [place] [address] 01/31/2025 1:30 PM EDT Office Visit [address] [address] Syl Godfrey ANP [address] [place] [address] documented as of this encounter Procedures Procedure Name Priority Date/Time Associated Diagnosis Comments LYME DISEASE AB W/REFL TO BLOT (IGG, IGM) Routine 01/22/2023 11:45 AM EDT Healthcare maintenance VITAMIN B12 Routine 01/22/2023 11:45 AM EDT Healthcare maintenance documented in this encounter Results * Lyme Disease Ab with Reflex to Blot (IgG, IgM) (01/22/2023 11:45 AM EDT) Lyme Antibody Screen <0.90 index [facility] Comment:Index Interpretation ----- < 0.90 Negative 0.90-1.09 Equivocal > 1.09 PositiveAs recommended by the Food and Drug Administration(FDA), all samples with positive or equivocalresults in a Borrelia burgdorferi antibody screenwill be tested using a blot method. Positive orequivocal screening test results should not beinterpreted as truly positive until verified as suchusing a supplemental assay (e.g., B. burgdorferi blot).The screening test and/or blot for B. burgdorferiantibodies may be falsely negative in early stagesof Lyme disease, including the period when erythemamigrans is apparent.THIS TEST WAS PERFORMED AT:[facility] [place] [id number] BALL MD Lyme Blot [facility] 01/22/2023 11:4 5 AM EDT 01/22/2023 11:45 AM EDT [facility] External Provider LAB BLO OD ORDERABLES Final Result [facility] [address] [place] [phone] * Vitamin B12 (01/22/2023 11:45 AM EDT) Vitamin B12 784 200 - 900 pg/mL [facility] Comment:NORMAL 200-900 PG/ML INDETERMINATE 160-199 PG/ML DEFICIENT < 160 PG/ML 01/22/2023 11:4 5 AM EDT 01/22/2023 11:45 AM EDT [facility] External Provider LAB BLO OD ORDERABLES Final Result [facility] [address] [place] [phone] [phone] documented in this encounter Visit Diagnoses Diagnosis Healthcare maintenance- Primary documented in this encounter Care Teams Street Light Mechanic Relationship Specialty Start Date End Date Syl Godfrey ANP [address] [place] [address] PCP - General Family Medicine 04/05/20 documented as of this encounter
--- OUTSIDE RECORDS SUMMARY | 2024-11-11 19:15 | XMS_ITS | Encounter Summary ---
Author Organization [employer] Address 75 [facility] 7t [place] [address] Care Team Providers Care Ocean Export Agent Name Role Phone Syl Godfrey Primary Care Provider [phone] Encounter Details Date Type Department Care Team (Late st Contact Info) Description 10/27/2024 Telephone [facility] MEDICINE [address] [place] [address] Mariah Betancur RN 230 [place] [address] Social History Tobacco Use Types Packs/Day Years [...] encounter Miscellaneous Notes * Telephone Encounter - Mariah Betancur RN - 10/27/2024 12:12 PM EST Images from the original note were not included. Triage call regarding Pt portal message below. Pt reports fatigue that is increasing . Pt also speaks of next OV is scheduled for 11/22/24 which is the date of son's almost a year ago now. Pt speaks of this incident in detail and expresses grief. Pt reports drinking adequate liquids and is taking a multivitamin. Pt is also considering that injection of zepbound could be the cause of fatigue as well. Pt would like to speak with PCP. ASK apt with KELSIE Godfrey 09/28/24 @ 115pm. Pt agrees with this disposition. Pt is advised to write questions down on paper and bring to apt and Pt agrees. Unableto verify insurance due to computer error. Protocol Used: Weakness (Generalized) and Fatigue (Adult) Protocol-Based Disposition: See in Office or Video Visit within 3 Days Video visit not offered Positive Triage Question: * Fatigue (i.e., tires easily, decreased energy) and persists > 1 week * All higher-acuity triage questions were negative Care Advice Discussed: * Drink Fluids [facility] Clinical Support (supporting Syl Godfrey, BRIANNA)1 hour ago (10:29 AM) Good morning I had a question for you I and super tired all the time doesn't matter if I sleep wellthrough the night or not I just have no energy I'm tired throughout the whole day I wonder if there's something you could prescribe me that will give me energy the multivitamin that I'm on isn't helping me In terms of giving me any energy I don't know maybe it's the shot? But I'm becoming less active because I'm tired all the time and I really can't afford over the counter stuff after paying my bills and rent I'm literally left with $160 for the month because my landlord decided without warningto raise our rent $327 Money is tight to say the least but I was just wondering I heard B12 complexis good? Anyway if there's anything that you think might boost my energy that you could provide let me know thank you documented in this encounter Plan of Treatment Upcoming Encounters Date Type Department Care Team (Late st Contact Info) Description 11/22/2024 2:15 PM EDT Office Visit [facility] MED[facility]INE [address] [place] [address] Syl Godfrey ANP [address] [place] [address] 01/31/2025 1:30 PM EDT Office Visit [facility] [address] [place] [address] Syl Godfrey ANP [address] [place] [address] documented as of this encounter Visit Diagnoses Not on filedocumented in this encounter Additional Health Concerns Assessment Noted Time PHQ-9 Depression Total Score: 16 024 1:50 PM EDT documented as of this encounter Care Teams Ocean Export Agent Relationship Specialty Start Date End Date Syl Godfrey ANP [address] [place] [address] PCP - General Family Medicine 04/05/20 documented as of this encounter
--- OUTSIDE RECORDS SUMMARY | 2024-11-11 19:15 | XMS_ITS | Encounter Summary ---
Author Organization [employer] Address 75 [facility] 7t [place] [address] Care Team Providers Care Live In Housekeeper Nanny Name Role Phone GodfreySyl Primary Care Provider [phone] Reason for Visit * Reason Comments Med Refill Encounter Details Date Type Department Care Team ([facility] st Contact Info) Description 02/24/2024 Refill [facility] MEDICINE [address] [place] [address] Meghana Cloud MD 230 [place] [address] Benign essential HTN Social History Tobacco Use [...] Description 11/22/2024 2:15 PM EDT Office Visit [address] [address] Syl Godfrey ANP [address] [place] [address] 01/31/2025 1:30 PM EDT Office Visit [facility] MEDICINE [address] [place] [address] Syl Godfrey ANP [address] [place] [address] documented as of this encounter Visit Diagnoses Diagnosis Benign essential HTN documented in this encounter Additional Health Concerns Assessment Noted Time PHQ-9 Depression Total Score: 16 024 1:50 PM EDT documented as of this encounter Care Teams Live In Housekeeper Nanny Relationship Specialty Start Date End Date Syl Godfrey ANP [address] [place] [address] PCP - General Family Medicine 04/05/20 documented as of this encounter
--- OUTSIDE RECORDS SUMMARY | 2024-11-11 19:15 | XMS_ITS | Encounter Summary ---
Author Organization [employer] Address 75 [facility] 7t [place] [address] Care Team Providers Care Web Press Operator Apprentice Name Role Phone Syl Godfrey Primary Care Provider [phone] Reason for Visit * Reason Comments Med Refill Encounter Details Date Type Department Care Team ([facility] st Contact Info) Description 10/21/2024 Refill [facility] MEDICINE 230 [place], [place] [phone] Syl Godfrey ANP 230 [place] [address] Benign essential HTN Social History Tobacco Use [...] Description 11/22/2024 2:15 PM EDT Office Visit [facility] MEDICINE [address] [place] [address] Syl Godfrey ANP [address] [place] [address] 01/31/2025 1:30 PM EDT Office Visit [address] [address] Syl Godfrey ANP [address] [place] [address] documented as of this encounter Visit Diagnoses Diagnosis Benign essential HTN documented in this encounter Additional Health Concerns Assessment Noted Time PHQ-9 Depression Total Score: 16 024 1:50 PM EDT documented as of this encounter Care Teams Web Press Operator Apprentice Relationship Specialty Start Date End Date Syl Godfrey ANP [address] [place] [address] PCP - General Family Medicine 04/05/20 documented as of this encounter
--- OUTSIDE RECORDS SUMMARY | 2024-11-11 19:15 | XMS_ITS | Encounter Summary ---
Author Organization [employer] Address [address] [facility] [address] 7t [place] [address] Care Team Providers Care Tick Eradicator Name Role Phone Bekah Syl REED Primary Care Provider [phone] Encounter Details Date Type Department Care Team (Latest Contact Info) Description 10/29/2024 Travel Social History Tobacco Use Types Packs/Day Years [...] Office Visit [facility] MEDICINE [address] [place] [address] Syl Godfrey ANP [address] [place] [address] 01/31/2025 1:30 PM EDT Office Visit [facility] MEDICINE [address] [place] [address] Syl Godfrey ANP [address] [place] [address] documented as of this encounter Visit Diagnoses Not on filedocumented in this encounter Additional Health Concerns Assessment Noted Time PHQ-9 Depression Total Score: 16 024 1:50 PM EDT documented as of this encounter Care Teams Tick Eradicator Relationship Specialty Start Date End Date Syl Godfrey ANP [address] [place] [address] PCP - General Family Medicine 04/05/20 documented as of this encounter
--- OUTSIDE RECORDS SUMMARY | 2024-11-11 19:15 | XMS_ITS | Encounter Summary ---
Author Organization [employer] Address 75 [facility] 7t [place] [address] Care Team Providers Care Anesthesia Associate Name Role Phone Syl Godfrey Primary Care Provider [phone] Reason for Visit * Reason Onset Date Comments Med Refill 08/04/2024 Encounter Details Date Type Department Care Team ([facility] Contact Info) Description 08/04/2024 Telephone [facility] MEDICINE 230 [place] [address] Syl Godfrey ANP [address] [place] [address] Med Refill Social History Tobacco Use Types Packs/Day Years [...] is your housing situation today? I have maycoldanna ryder 07/21/[address] [...] encounter Miscellaneous Notes * Telephone Encounter - Miranda Grove LPN - 08/04/2024 9:21 AM EST Medication pended to PCP for approval. * Telephone Encounter - Minerva Fernandez - 08/04/2024 9:09 AM EST TC from pt requesting medication refill. Medications needing refill : QUEtiapine (SEROquel) 300 MG tablet To be sent to: [facility]/pharmacy #[id number] documented in this encounter Plan of Treatment Upcoming Encounters Date Type Department Care Team (Late st Contact Info) Description 11/22/2024 2:15 PM EDT Office Visit [facility] MEDICINE [address] [place] [address] Syl Godfrey ANP [address] [place] [address] 01/31/2025 1:30 PM EDT Office Visit [address] [address] Syl Godfrey ANP [address] [place] [address] documented as of this encounter Visit Diagnoses Not on filedocumented in this encounter Additional Health Concerns Assessment Noted Time PHQ-9 Depression Total Score: 16 024 1:50 PM EDT documented as of this encounter Care Teams Anesthesia Associate Relationship Specialty Start Date End Date Syl Godfrey ANP [address] [place] [address] PCP - General Family Medicine 04/05/20 documented as of this encounter
--- OUTSIDE RECORDS SUMMARY | 2024-11-11 19:15 | XMS_ITS | Encounter Summary ---
Author Organization [employer] Address 75 [facility] 7t [place] [address] Care Team Providers Care Granite Sandblaster Apprentice Name Role Phone Syl Godfrey Primary Care Provider [phone] Reason for Visit * Reason Comments Med Refill Encounter Details Date Type Department Care Team ([facility] st Contact Info) Description 09/12/2024 Refill [facility] MEDICINE 230 [place], [place] [phone] Syl Godfrey ANP [address] [place] [address] Benign essential HTN Social History Tobacco Use [...] Description 11/22/2024 2:15 PM EDT Office Visit [facility] MEDICINE [address] [place] [address] Syl Godfrey ANP [address] [place] [address] 01/31/2025 1:30 PM EDT Office Visit [address] [address] Syl Godfrey ANP [address] [place] [address] documented as of this encounter Visit Diagnoses Diagnosis Benign essential HTN documented in this encounter Additional Health Concerns Assessment Noted Time PHQ-9 Depression Total Score: 16 024 1:50 PM EDT documented as of this encounter Care Teams Granite Sandblaster Apprentice Relationship Specialty Start Date End Date Syl Godfrey ANP [address] [place] [address] PCP - General Family Medicine 04/05/20 documented as of this encounter
--- OUTSIDE RECORDS SUMMARY | 2024-11-11 19:15 | XMS_ITS | Clinical Summary ---
Author Organization [employer] Address [address] [facility] [address] [place] [address] Care Team Providers Care Dispensing Lead Name Role Phone Terese Drake REED Primary Care Provider [phone] Allergies Active Allergy Reactions Criticality Noted Date Comments Aspirin 05/29/2012 Other reaction(s): GI upset Cephalexin 05/29/2012 Lamotrigine Rash Low 06/11/2018 Other reaction(s): Rash Medications omega-3 acid ethyl esters (Lovaza) 1 g capsuleIndicat ions:Hypertrig lyceridemia Take 1 capsule (1 g) by mouth 2 times daily. 60 capsule 11 01/26/20 24 025 Active cetirizine (ZyrTEC) 10 MG tablet TAKE 1 TABLET BY MOUTH EVERY DAY NEEDED FOR FOR ALLERGY 90 tablet 3 02/16/20 24 Active ibuprofen 800 MG tabletIndicati ons:Other chronic pain TAKE 1 TABLET BY MOUTH 3 TIMES DAILY. 60 tablet 1 04/30/20 24 Active atorvastatin (Lipitor) 40 MG tabletIndicati ons:Hypertrigl yceridemia TAKE 1 TABLET BY MOUTH EVERY DAY 90 tablet 3 05/27/20 24 Active buPROPion XL (Wellbutrin XL) 300 MG 24 hr tabletIndicati ons:Bipolar 2 disorder (CMS/HCC) TAKE 1 TABLET (300 MG) BY MOUTH IN THE MORNING 90 tablet 1 07/01/20 24 Active melatonin 5 MG tabletIndicati ons:Primary insomnia TAKE 1 TABLET BY MOUTH AT BEDTIME NEEDED FOR INSOMNIA 30 tablet 5 07/29/20 24 Active Multiple Vitamin (multivitamin) tablet TAKE 1 TABLET BY MOUTH EVERYDAY IN THE MORNING 90 tablet 1 07/29/20 24 Active traZODone (Desyrel) 100 MG tabletIndicati ons:Primary insomnia TAKE 1 - 1.5 TABLET(s) BY MOUTH EVERYDAY AT BEDTIME NEEDED FOR INSOMNIA 45 tablet 2 09/10/20 24 Active QUEtiapine (SEROquel) 300 MG tablet TAKE 1 TABLET BY MOUTH EVERYDAY AT BEDTIME 30 tablet 1 10/11/19 25 Active hydroCHLOROthi azide 12.5 MG tabletIndicati ons:Benign essential HTN TAKE 1 TABLET BY MOUTH EVERY DAY 90 tablet 10/21/19 25 Active melatonin 10 MG tablet Take 1 tablet (10 mg) by mouth if needed at bedtime (insomnia). 30 tablet 11 11/02/19 25 Active triamcinolone (Nasacort) 55 MCG/ACT nasal inhaler Administer 2 sprays into each nostril Once per day. 49.5 g 3 11/11/19 25 026 Active guaiFENesin (Mucinex) 600 MG 12 hr tablet Take 2 tablets (1,200 mg) by mouth if needed in the morning and at bedtime for cough or congestion. Do not crush, chew, or split. 30 tablet 11/11/19 25 026 Active benzonatate (Tessalon Perles) 100 MG capsule Take 1 capsule (100 mg) by mouth if needed in the morning, at noon, and at bedtime for cough for up to 10 days. Do not crush or chew. 30 capsule 11/11/19 25 025 Active hydroCHLOROthi azide 12.5 MG tabletIndicati ons:Benign essential HTN TAKE 1 TABLET BY MOUTH EVERY DAY 90 tablet 08/06/20 24 025 Discontinued Tirzepatide-We ight Management (Zepbound) 2.5 MG/0.5ML solution auto-injectorI ndications:Obe sity Inject 0.5 mL (2.5 mg) under the skin 1 (one) time per week. Start 5.5 mg weekly x 4 weeks, then increased to 5 mg x 4 weeks, then increase to 7.5 mg weekly 2 mL 09/20/19 25 025 oxyCODONE-acet aminophen (Percocet) 7.5-325 MG tabletIndicati ons:Chronic pain syndrome Take 1 tablet by mouth every 6 (six) hours if needed for severe pain for up to 5 days. 15 tablet 11/02/19 25 025 Active Problems Problem Noted Date Diagnosed Date Benign essential HTN 03/04/2023 Routine physical examination 02/18/2023 Assessment & Plan (02/18/2023 11:13 AM EDT): Physical exam normal aside from a palpable mass left breast. No evidence of infection. Plan: Diagnostic mammogram and U/S . Might need referral to [facility] even if Mammo and U/S negative gien palpable abnormality Screening for colorectal cancer 02/18/2023 Overview (01/27/2024): Upcoming Summer 2023 Assessment & Plan (02/18/2023 11:14 AM EDT): 57 yrs of age, has never had one GI referral for colonoscopy Mass of axillary tail of left breast 02/18/2023 Assessment & Plan (02/18/2023 11:18 AM EDT): Palpable mass left breast 3 o'clock , tender to palpation Plan: Diagnostic mammo and U/S Follow up with PCP after testing even if negative might need referral to Breast Center given palpable abnormality Vasomotor symptoms due to menopause 02/18/2023 Assessment & Plan (02/18/2023 11:19 AM EDT): Pt interested in seeing Jocelyne . 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 She is very concerned about her weight and attributes weight gain to Seroquel which she would like to stop taking. Also very focused on her poor and interrupted sleep. Will start Trazodone 100 mg at bedtime. I have asked her to continue the Seroquel 300 mg for now. Reviewed that Seroquel is not a Sleeping pill, and the primary reason for taking it is to control mood swings and intrusive thoughts. If she stops it without replacing with a different mood stabilizer there is a significant risk of worsening her mood, causing severe depression, and possibly even SI. If the Trazodone works for sleep, we can then switch the Seroquel for a non-sedating and more weight-neutral mood stabilizer. She has upcoming appt with her PCP and can discuss sleep study, Continue Wellbutrin XL 300 mg daily. Melatonin 5 mg 1-2 tabs at bedtime prn. F/U with new therapist. Did not discuss therapist today. F/u with me in 4 weeks. She agrees with the plan. Assessment & Plan (12/23/2022 3:00 PM EDT): With persistent anxiety and guilt r/t anniversary of the of her son from drug overdose, which occurred in the patient's own home. Found the increased Seroquel 400 mg at bedtime caused abnormal breathing episodes at night, and resumed prior Seroquel 300 mg, which she will continue now. Recommend discussing sleep study with her PCP. Did not find am Seroquel 50 mg helpful for anxiety and has stopped it. Will start Clonidine 0.1 mg at bedtime, then BID for sleep and anxiety. Continue Wellbutrin XL 300 mg daily. Melatonin 5 mg 1-2 tabs at bedtime prn. Urged to avoid alcohol. F/U with new therapist. F/U with me in 6 weeks. She agrees with the plan. Assessment & Plan (11/21/2022 12:16 PM EST): Not doing as well, r/t anniversary of the of her son from drug overdose, which occurred in the patient's own home. Not sleeping as well and mood is not as stable. At this time she will increase to Seroquel 400 mg at bedtime. Start Seroquel 25 mg 1-2 tabs in am. Continue Wellbutrin XL 300 mg daily. Melatonin 5 mg at bedtime prn. Urged to avoid alcohol. F/U with new therapist. F/U with me in 1 month. She agrees with the plan. Chronic pain 09/21/2013 Goiter 09/21/2013 Heel pain 09/21/2013 Idiopathic urticaria 09/21/2013 Diarrhea 09/21/2013 Cyst of thyroid 01/21/2013 Insomnia 01/21/2013 Encounters Date Type Department Care Team Description 11/11/2024 3:40 PM EST Office Visit [facility] [address] [facility] [place] [address] Miranda Winkler DO Acute URI (Primary Dx) 11/02/[address] [facility] [address] [facility] [place] [address] Kelsie Ruiz RN Chronic pain syndrome (Primary Dx) 11/02/[address] [facility] [address] [facility] [place] [address] Kelsie Ruiz RN 10/29/2024 1:[address] [facility] [address] [facility] [place] [address] Drake Gudino ANP Other fatigue (Primary Dx); Primary insomnia 10/29/[address] [facility] [address] [facility] [place] [address] Drake Gudino ANP Benign essential HTN 10/29/2024 Travel 10/27/[address] [facility] [address] [facility] [place] [address] Mariah Betancur RN 10/21/[address] [facility] [address] [place] [address] Drake Gudino ANP Benign essential HTN 10/09/[address] [facility] [address] [facility] [place] [address] Drake Gudino ANP 09/28/[address] [facility] [address] [facility] [place] [address] Drake Gudino ANP Arthritis of right subtalar joint (Primary Dx) 09/24/[address] [facility] [address] [facility] [place] [address] Nathan Trotter MA November recall 09/20/[address] [facility] [address] [facility] [place] [address] Kelsie Ruiz RN 09/13/[address] [facility] [address] [place] [phone] Drake Gudino ANP Benign essential HTN 09/12/[address] 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 08/20/[address] [address] Cat Avila RN Med Refill (Wegovy notification) 08/19/2024 1:00 PM EST Office Visit [address] [address] Drake Gudino ANP BMI 28.0-28.9,adult (Primary Dx); Dietary counseling; Exercise counseling; Fatigue, unspecified type; Hypertriglyceridemia; Arthritis of right subtalar joint 08/19/2024 Travel 08/19/[address] [address] Rosa Díaz MA appt change (Received a message that pt would like to switch for a tele visit today,drake would like to see her in person today.or if she can not make it today to reschedule in person .Did try leone pt ,did not answer left a vm) 08/18/[address] [address] Rosa Díaz [place] chart prep from Last 3 Months Immunizations Name Administration Dates Next Due Moderna Covid-19 Vaccine 12+ 05/04/2021,04/06/20 21 Tdap 05/29/2012 Family History Medical History Relation Name Comments Coronary artery disease Maternal Grandmother Myself Hypertension Maternal Grandmother Myself Cancer Mother Myself Depression Mother Myself Mental illness Mother Myself Miscarriages / Stillbirths Mother Myself Stroke Mother Myself Accidental Son from o verdose at 30 Relation Name Status Comments Maternal Grandmother Myself Mother Myself Son Social History Tobacco Use Types Packs/Day Years Used Date Smoking Tobacco: Never Passive Smoke Exposure: Never Smokeless Tobacco: Never Tobacco Cessation:Counseling Given: Not Answered Comments:Smoke pot once in awhile Alcohol Use Standard Drinks/Week Comments Yes 0 [...] Orientation Straight 07/15/2022 10 :14 AM EDT Last Filed Vital Signs Vital Sign Reading Time Taken Comments Blood Pressure 123/71 11/11/2024 3:36 PM EST Pulse 61 11/11/2024 3:36 PM EST Temperature 36.8 ??C (98.2 ??F) 11/11/2024 3:36 PM ES T Respiratory Rate 17 11/11/2024 3:36 PM EST Oxygen Saturation 97% 11/11/2024 3:36 PM EST Inhaled Oxygen Concentration - - Weight 63 kg (138 lb 12.8 oz) 11/11/2024 3:36 PM EST Height 167.6 cm (5' 6 ) 01/26/2024 1:49 PM EDT Body Mass Index 22.4 01/26/2024 1:49 PM EDT Plan of Treatment Upcoming Encounters Date Type Department Care Team (Late st Contact Info) Description 11/22/2024 2:15 PM EDT Office Visit [address] [address] Drake Gudino, ANP [address] [place] [phone] 01/31/2025 1:30 PM EDT Office Visit [address] [address] Drake Gudino, ANP [address] [place] [address] Health Maintenance Due Date Last Done Comments CT Colonography 1965 Colonoscopy 1965 Colorectal Cancer Screening 1965 FIT DNA/Cologuard 1965 FIT 1965 FOBT 1965 Sigmoidoscopy 1965 Alcohol/Substance Use Screening 1977 Hepatitis C Screening 11/18/1983 Hepatitis B Vaccines (1 of 3 - 19+ 3-dose series) 1984 Pneumococcal Vaccine: 50+ Years (1 of 1 - PCV) 11/18/2015 Zoster Vaccines (1 of 2) 11/18/2015 DTaP/Tdap/Td Vaccines (2 - Td or Tdap) 05/29/2022 05/29/2012 COVID-19 Vaccine ( season) 2024 05/04/2021, 04/06/2021 Influenza Vaccine (#1) 2024 Depression Monitoring (PHQ-9) 02/17/2025 08/19/2024, 01/26/2024 Depression Screening 08/19/2025 08/19/2024, 01/26/20 SDOH Screening 08/19/2025 08/19/2024 Tobacco Screening 11/11/2025 11/11/2024 Mammogram 03/04/2026 03/04/2024, 02/13, 02/25/2023, Additional history exists Pap Smear 03/10/2026 03/10/2023 Cervical Cancer Screening 03/10/2028 HPV/Cotest 03/10/2028 03/10/2023, 06/27/2016 Lipid Panel 11/11/2029 11/11/2024, 02/2024, 02/21/2023, Additional history exists RSV Patients and Patients Aged 60 years or older (1 - 1-dose 75+ series) 2040 HIV Screening Completed 08/08/2020 HIB Vaccines Aged Out No longer eligi ble based on patient's age to complete this topic HPV Vaccines Aged Out No longer eligi ble based on patient's age to complete this topic Hepatitis A Vaccines Aged Out No long er eligible based on patient's age to complete this topic IPV Vaccines Aged Out No longer eligi ble based on patient's age to complete this topic Meningococcal Vaccine Aged Out No yumi claude eligible based on patient's age to complete this topic RSV under 20 months Aged Out No longe r eligible based on patient's age to complete this topic Rotavirus Vaccines Aged Out No longer eligible based on patient's age to complete this topic Procedures Procedure Name Priority Date/Time Associated Diagnosis Comments INSULIN Routine 11/11/2024 4:06 PM EST Other fatigue TSH W/REFLEX TO FT4 Routine 11/11/2024 4 :06 PM EST Fatigue, unspecified type LIPID PANEL, STANDARD Routine 11/11/2024 4:06 PM EST Hypertriglyceridemi a BASIC METABOLIC PANEL Routine 11/11/2024 4:06 PM EST Hypertriglyceridemi a HEMOGLOBIN A1C Routine 11/11/2024 4:06 PM EST Fatigue, unspecified type HEMOGLOBIN + HEMATOCRIT Routine 11/11/2024 4:06 PM EST Fatigue, unspecified type POCT INFLUENZA B (ID NOW RAPID MOLECULAR) Routine 11/11/2024 4:00 PM EST Acute URI POCT INFLUENZA A (ID NOW RAPID MOLECULAR) Routine 11/11/2024 4:00 PM EST Acute URI POCT RAPID STREP A Routine 11/11/2024 4: 00 PM EST Acute URI POCT RAPID COVID ANTIGEN Routine 11/11/2024 4:00 PM EST Acute URI BI MAMMOGRAM SCREENING TOMOSYNTHESIS BILATERAL Routine 03/04/2024 1:16 PM EDT IMAGE-GUIDED PAP W/AGE BASED SCR PROTOCOLS Routine 03/10/2023 11:30 AM EDT Cervical cancer screening HIV 1/2 ANTIGEN/ANTIBODY, FOURTH GENERATION W/RFL Routine 08/08/2020 2:28 PM EST from Last 3 Months or Most Recently Relevant to Health Maintenance Results * TSH W/Reflex to FT4 (11/11/2024 4:06 PM EST) TSH reflex Free T4 0.66 0.32 - 4.0 uIU/mL [facility] Blood Venous blood specimen / Unknown 11/11/2024 4:06 PM EST 11/11/2024 6:11 PM EST Drake [facility] LAB BLOOD ORDERABLES Final Resul t [facility] [address] [place] [phone] * Insulin (11/11/2024 4:06 PM EST) Pathologist [facility] Insulin 5 2 - 29 uU/mL [facility] Comment:This test was perfor med using the Loaiza chemiluminescentmethod. Values obtained from different assay methods cannot beused interchangeably. This insulin assay shows a possiblecross-reactivity with antibodies generated against insulin(immunoreactive insulin and some patients treated withbovine or porcine insulin). Insulin levels may be measuredlower in patients with insulin autoimmune syndrome orfamilial high pro-insulinemia. Blood Venous blood specimen / Unknown 11/11/2024 4:06 PM EST 11/11/2024 6:11 PM EST [facility] LAB BLOOD ORDERABLES Final Resul t Performing Organization Address [facility]/ZIP Co de Phone Number [facility] [address] [place] [phone] * Hemoglobin and Hematocrit (11/11/2024 4:06 PM EST) Hemoglobin 13.4 12.0 - 16.0 g/dl [facility] Hematocrit 38.9 37.0 - 47.0 % [facility] Blood Venous blood specimen / Unknown 11/11/2024 4:06 PM EST 11/11/2024 6:11 PM EST [facility] LAB BLOOD ORDERABLES Final Resul t Performing Organization Address [facility] Co de Phone Number [facility] [address] [place] [phone] * Hemoglobin A1c (11/11/2024 4:06 PM EST) Hemoglobin A1c 5.1 <6.0 % [facility] Comment:Hemoglobin A1C Refer ence Range Adults: 4.8 - 6.0 % Non diabetic: < 6.0 % Goal: < 7.0 %Additional Action Suggested: > 8.0 %Note: Hemoglobin A1c results are invalid for patients with abnormal amounts of HbF. Blood transfusions may impact the HbA1c concentration in the patient sample. Estimated Average Glucose 100 mg/dL [facility] Comment:eAG = Estimated ave rage glucose which is %A1C expressed asaverage glucose, using the formula of the [id number]-[id number] Glucose study (ADAG), Diabetes Care, Vol.31,#8,Apr. 2007 Blood Venous blood specimen / Unknown 11/11/2024 4:06 PM EST 11/11/2024 6:11 PM EST Drake Gudino ANP LAB BLOOD ORDERABLES Final Resul t Performing Organization Address [facility] Co de Phone Number [facility] [address] [place] [phone] * (ABNORMAL) Lipid Panel, Standard (11/11/2024 4:06 PM EST) Triglycerides 108 <150 mg/dL [facility] Comment:Desirable Triglyceri de: less than 150 mg/dLBorderline High Triglyceride 150-199 mg/dLHigh Triglyceride: 200-499 mg/dLVery High Triglyceride: greater than or equal to 5OO mg/dL Cholesterol 148 <200 mg/dL [facility] Comment:Desirable Cholestero l: less than 200 mg/dLBorderline High Cholesterol: 200-239 mg/dLHigh Cholesterol: greater than 239 mg/dL LDL Cholesterol Calculated 97 <100 mg/dL [facility] Comment:Desirable LDL: less than 100 mg/dLNear Optimal/Above Optimal LDL: 110- 129 mg/dLBorderline High LDL: 130-159 mg/dLHigh LDL: 160-189 mg/dLVery High LDL: greater than or equal to 190 mg/dL HDL Cholesterol 30(L) >40 mg/dL [facility] Comment:Desirable HDL: great er than 40 mg/dL Note: This HDL assay may give artificially low results in patients with liver disease. Blood Venous blood specimen / Unknown 11/11/2024 4:06 PM EST 11/11/2024 6:11 PM EST us Drake Gudino ANP LAB BLOOD ORDERABLES Final Resul t Performing Organization Address [facility] Co de Phone Number [facility] [address] [place] [phone] * (ABNORMAL) Basic Metabolic Panel (11/11/2024 4:06 PM EST) Sodium 141 135 - 145 mmol/L [facility] Potassium 2.9(LL) 3.3 - 5.1 mmol/L [facility] Comment:Critical value for t est K: Results called to and read backby: DR. MIRANDA JUDGE Person calling:CORY Date:11/11/24 Time: 1856 Chloride 100 96 - 108 mmol/L [facility] Carbon Dioxide 32(H) 22 - 29 mmol/L [facility] Anion Gap 12 12 - 20 [facility] Urea Nitrogen (BUN) 23(H) 9 - 16 mg/dL [facility] Creatinine, Serum 1.14 0.5 - 1.4 mg/dL [facility] Estimated Glomerular Filt Rate 49 [facility] Comment:Chronic Kidney Disea se: Estimated GFR < 60 mL/min/1.06b9Kwtjfu Kidney Disease: Estimated GFR < 15 mL/min/1.73m2 Glucose 84 60 - 115 mg/dL [facility] Calcium 9.2 8.4 - 10.2 mg/dL [facility] Blood Venous blood specimen / Unknown 11/11/2024 4:06 PM EST 11/11/2024 6:11 PM EST Drake REED LAB BLOOD ORDERABLES Final Resul t [facility] [address] [place] [phone] * Influenza B (ID NOW Rapid Molecular) (11/11/2024 4:00 PM EST) Influenza B Negative Negative, Indeterminate [facility] Swab 11/11/2024 4:00 PM EST Miranda Winkler DO POINT OF CARE TEST ENTER/CHRISTINE T ORDERABLES Final Result Performing Organization Address City/[facility]/ZIP Co de Phone Number [facility] [address] [place] [phone] * Influenza A (ID NOW Rapid Molecular) (11/11/2024 4:00 PM EST) Influenza A Negative Negative, Indeterminate [facility] Swab 11/11/2024 4:00 PM EST us Miranda Winkler DO POINT OF CARE TEST ENTER/CHRISTINE T ORDERABLES Final Result Performing Organization Address [facility] Co de Phone Number [facility] [address] [place] [phone] * POCT Rapid COVID Ag (11/11/2024 4:00 PM EST) Rapid COVID Ag Negative [facility] Swab 11/11/2024 4:00 PM EST us Miranda Winkler DO POINT OF CARE TEST ENTER/CHRISTINE T ORDERABLES Final Result Performing Organization Address [facility] de Phone Number [facility] [address] [place] [phone] * POCT rapid strep A manually resulted (11/11/2024 4:00 PM EST) Pathologist [facility] Rapid Strep A Screen Negative Negative, None Detected [facility] Swab 11/11/2024 4:00 PM EST Miranda Winkler DO POINT OF CARE TEST ENTER/CHRISTINE T ORDERABLES Final Result Performing Organization Address [facility] Co de Phone Number [facility] [address] [place] [phone] * BI Mammogram Screening Tomosynthesis Bilateral (03/04/2024 1:16 PM EDT) Anatomical Region Laterality Modality Breast Bilateral Mammography 03/04/2024 1:16 PM EDT Narrative 04/02/2024 1:52 PM EDT ? [place] ? [address] ?[place] [address] ? Mammography Report ? Signed ? Patient: Kilo,Dilia R ?MR#: [id number] ?? [id number] ? : 1965 ?Acct:[id number] ? Age/Sex: 58 / F ?ADM Date: 03/04/24 ? Loc: HO.MAMMO ? Attending Dr: Drake Gudino INTERNET MARKETING CONSULTANT ? Ordering Physician: DRAKE GUDINO NP ?Results: 2Benign Fin ?? dings ? Date of Service: 03/04/24 ?Follow Up: 1 Year From Orig ?? inal Mammogram ? Procedure(s): MM tomosynthesis screening BI ?? Accession Number(s): [id number] ? cc: TERESE,DRAKE REYNAGA ? EXAMINATION: ?? MM SCREENING DIGITAL BREAST TOMOSYNTHESIS, BILATERAL ? CLINICAL INFORMATION: ? Screening. Asymptomatic. ? The patient has a known sebaceous cyst in the deep third of the ?? COMPARISON: ?? Mammography: This study is compared with prior exams dating back to ?? 2009. ? TECHNIQUE: ?? Digital breast tomosynthesis is performed in both the craniocaudal and ?? mediolateral oblique views along with computer-aided detection (CAD). ?? Synthesized 2D images are generated from the tomosynthesis. ? FINDINGS: ?? There are scattered areas of fibroglandular density (ACR BI-RADS breast ?? composition Category b). ? There are no significant masses, abnormal calcifications, or other ?? abnormalities. ? The patient has a known, mammographically unchanged sebaceous cyst in ?? the skin of the upper outer quadrant of the right breast. ? MM/MM tomosynthesis screening BI ?? IMPRESSION: ?? No mammographic evidence of malignancy. ? ASSESSMENT: ? BI-RADS BI-RADS 2 - Benign Findings ? RECOMMENDATION: ?? Routine annual mammography screening. ? 1 year F/U ? This examination should not preclude the clinical evaluation of a ?? suspicious palpable abnormality. ? This patient's information was entered into a reminder system with a ?? target due date for their next mammogram. ? Dictated By: ?Lashawn Herrera MD ? Signed By: ?<Electronically signed by Lashawn Herrera MD in OV> ? 04/02/24 1347 ? DD/ 1316 ? TD/TT: ? Food Safety Specialist: ? Procedure Note Donmarleenter, Image - 04/02/2024 [place] [facility] [address] [place] [address] Mammography Report Signed Patient: Dilia Boateng RMR#: [id number] : 1965Acct:[id number] Age/Sex: 58 / FADM Date: 03/04/24 Loc: [facility] Attending Dr: Drake Gudino INTERNET MARKETING CONSULTANT Ordering Physician: DRAKE GUDINOesults: 2Benign Bruno chen Date of Service: 03/04/24Follow Up: 1 Year From Orig inal Mammogram Procedure(s): MM tomosynthesis screening BI Accession Number(s): [id number] cc: DRAKE GUDINO NP EXAMINATION: MM SCREENING DIGITAL BREAST TOMOSYNTHESIS, BILATERAL CLINICAL INFORMATION: Screening. Asymptomatic. The patient has a known sebaceous cyst in the deep third of the COMPARISON: Mammography: This study is compared with prior exams dating back to 2009. TECHNIQUE: Digital breast tomosynthesis is performed in both the craniocaudal and mediolateral oblique views along with computer-aided detection (CAD). Synthesized 2D images are generated from the tomosynthesis. FINDINGS: There are scattered areas of fibroglandular density (ACR BI-RADS breast composition Category b). There are no significant masses, abnormal calcifications, or other abnormalities. The patient has a known, mammographically unchanged sebaceous cyst in the skin of the upper outer quadrant of the right breast. MM/MM tomosynthesis screening BI IMPRESSION: No mammographic evidence of malignancy. ASSESSMENT: BI-RADS BI-RADS 2 - Benign Findings RECOMMENDATION: Routine annual mammography screening. 1 year F/U This examination should not preclude the clinical evaluation of a suspicious palpable abnormality. This patient's information was entered into a reminder system with a target due date for their next mammogram. Dictated By: Lashawn Herrera MD Signed By: <Electronically signed by Lashawn Herrera MD in OV> 04/02/24 1347 DD/ 1316 TD/TT: Food Safety Specialist: [facility] IM BI PROCEDURES Final Result * Image-Guided Pap with Age-Based Screening Protocols (03/10/2023 11:30 AM EDT) Comment K[employer] Comment: This order for age-based cervical cancer and STI screening follows ACOG guidelines(PB 168, 140, MUK058). See individual assays for performing site location. Clinical Information: None given [employer] LMP: NONE GIVEN [employer] Prev. PAP: NONE GIVEN [facility]ostics [employer] [facility] Prev. BX: NONE GIVEN [facility] [employer] [facility] SOURCE: None given [employer] Statement Of Adequacy: SATISFACTORY FOR EVALUATION [employer] [facility] Interpretation/Re sult: [employer] Comment: Negative for intraepithelial lesion or malignancy. Atrophic pattern; predominantly parabasal cells COMMENT: [employer] [facility] Comment: This Pap test has been evaluated with computer assisted technology. Microscopic features suggestive of lubricant. Lubricant jellies may interfere with slide preparation; their use is not recommended. Date Pitter: Nallely [place] [id number] [facility] Comment: BK,CT(ASCP) CT screening location: [address] Review Date Pitter: [employer] [place] [employer] Comment: BLC,CT(ASCP) CT screening location: [address] ??[id number] (Always Message) Que [employer] (Group) Comment: EXPLANATORY NOTE: The Pap is a screening test for cervical cancer. It is not a diagnostic test and is subject to false negative and false positive results. It is most reliable when a satisfactory sample, regularly obtained, is submitted with relevant clinical findings and history, and when the Pap result is evaluated along with historic and current clinical information. HPV nRNA E6/E7 Not Detected Not Detected [employer] Comment: Methodology: Laboratory Sample Carrier-Mediated Amplification This assay detects E6/E7 viral messenger RNA (mRNA) from 14 high-risk HPV types (16,18,31,33,35,39,45,51,52,56,58,59,66,68). Cervical sources are required for HPV testing. If a vaginal source from a patient who has had a total hysterectomy with removal of cervix was submitted, please contact the testing laboratory for alternative testing options. For additional information, please refer to http://education.Liquid Accounts/faq/NAY943b7 (This link if provided for information/ educational purposes only.) Pap Vial 03/10/2023 11:3 0 AM EDT 03/11/2023 5:29 AM EDT Jocelyne Cheng [facility] LAB BLOOD ORDERABLES Melissa l Result [facility] [address], [facility], [place] [address] [employer] [place] [employer] [address] [place] [address] * HIV 1/2 ANTIGEN/ANTIBODY,FOURTH GENERATION W/RFL (08/08/2020 2:28 PM EST) HIV-1/2 ANTIGEN AND ANTIBODIES, 4TH GENERATION W/ REFLEX NON-REACT SHERIDAN NON-REACT SHERIDAN [facility] Comment: HIV-1 antigen and HIV-1/HIV-2 antibodies were not detected. There is no laboratory evidence of HIV infection. ?? PLEASE NOTE: This information has been disclosed to you from records whose confidentiality may be protected by state law. ??If your state requires such protection, then the state law prohibits you from making any further disclosure of the information without the specific written consent of the person to whom it pertains, or as otherwise permitted by law. A general authorization for the release of medical or other information is NOT sufficient for this purpose. ? For additional information please refer to http://[employer].Liquid Accounts/faq/WGG880 (This link is being provided for informational/ educational purposes only.) ? The performance of this assay has not been clinically validated in patients less than 2 years old. ?? HIV-1/2 ANTIGEN AND ANTIBODIES, 4TH GENERATION W/ REFLEX NON-REACT SHERIDAN NON-REACT SHERIDAN [facility] Comment: HIV-1 antigen and HIV-1/HIV-2 antibodies were not detected. There is no laboratory evidence of HIV infection. ?? PLEASE NOTE: This information has been disclosed to you from records whose confidentiality may be protected by state law. ??If your state requires such protection, then the state law prohibits you from making any further disclosure of the information without the specific written consent of the person to whom it pertains, or as otherwise permitted by law. A general authorization for the release of medical or other information is NOT sufficient for this purpose. ? For additional information please refer to http://[employer].Liquid Accounts/faq/ARY123 (This link is being provided for informational/ educational purposes only.) ? The performance of this assay has not been clinically validated in patients less than 2 years old. ?? 08/08/2020 2:28 PM EST Drake Gudino [facility] LAB BLOOD ORDERABLES Final Resul t [facility] [address] from Last 3 Months or Most Recently Relevant to Health Maintenance Insurance [facility] C3 HSN FULL Care Teams Dispensing Lead Relationship Specialty Start Date End Date Drake Gudino ANP [address] [place] [address] PCP - General Family Medicine 04/05/20
--- OUTSIDE RECORDS SUMMARY | 2024-11-11 19:15 | XMS_ITS | Encounter Summary ---
Author Organization [employer] Address [address] [facility] 7t [place] [address] Care Team Providers Care Body Mechanic Name Role Phone Syl Godfrey Primary Care Provider Reason for Visit * Reason Onset Date Comments Appointment Request 11/26/2023 Appointment 11/26/2023 [facility] Encounter Details Date Type Department Care Team ([facility] st Contact Info) Description 11/26/2023 Telephone [facility] MEDICINE [address] [place] [address] Syl Godfrey ANP [address] [place] [address] Appointment Request; [facility] Social History Tobacco Use Types Packs/Day Years [...] encounter Miscellaneous Notes * Telephone Encounter - Claudia Driscoll [place] - 12/03/2023 10:48 AM EDT T/c placed to pt regarding message below. Pt wasn't sure who is prescribing her psych med. I let her know that at this time her pcp Jose Antonio has been prescribing her med. I notify her that SHOBHA- Alejandrina Pyle will be retiring in couple months, but we can re-schedule an apt with her if she would liketoo or if she prefer to stay with her pcp keeping prescribing her med. She states she prefer her pcp keeping prescribing for now. She mentioned that she gets OP through [facility] which she can talk with her Counselor to place a referral for psychiatrist due ALEXANDRA Magana will be retiring. I let her know iflynette gets a psychiatrist through [facility] will be perfect. * Telephone Encounter - Justina Swann - 11/26/2023 8:45 AM EDT Tc from pt requesting to r/s appt with alejandrina pyle. documented in this encounter Plan of Treatment Upcoming Encounters Date Type Department Care Team (Late st Contact Info) Description 11/22/2024 2:15 PM EDT Office Visit [address] [address] Syl Godfrey ANP [address] [place] [address] 01/31/2025 1:30 PM EDT Office Visit [address] [address] Syl Godfrey ANP [address] [place] [address] documented as of this encounter Visit Diagnoses Not on filedocumented in this encounter Additional Health Concerns Assessment Noted Time PHQ-9 Depression Total Score: 17 023 3:15 PM EDT documented as of this encounter Care Teams Body Mechanic Relationship Specialty Start Date End Date Syl Godfrey ANP [address] [place] [phone] PCP - General Family Medicine 04/05/20 documented as of this encounter
--- OUTSIDE RECORDS SUMMARY | 2024-11-11 19:15 | XMS_ITS | Encounter Summary ---
Author Organization [employer] Address [address] [facility] 7t [place] [address] Care Team Providers Care Reduction Furnace Operator Name Role Phone Bekah Syl REED Primary Care Provider [phone] Reason for Visit * Reason Comments Med Refill Encounter Details Date Type Department Care Team ([facility] st Contact Info) Description 08/17/2023 Refill [facility] MEDICINE [address] [place] [address] Chino Ledezma FNP Social History Tobacco Use Types Packs/Day Years [...] Description 11/22/2024 2:15 PM EDT Office Visit [facility] MEDICINE [address] [place] [address] Syl Godfrey ANP [address] [place] [address] 01/31/2025 1:30 PM EDT Office Visit [facility] MEDICINE [address] [place] [address] Syl Godfrey ANP [address] [place] [address] documented as of this encounter Visit Diagnoses Not on filedocumented in this encounter Additional Health Concerns Assessment Noted Time PHQ-9 Depression Total Score: 17 023 3:15 PM EDT documented as of this encounter Care Teams Reduction Furnace Operator Relationship Specialty Start Date End Date Syl Godfrey ANP [address] [place] [address] PCP - General Family Medicine 04/05/20 documented as of this encounter
--- OUTSIDE RECORDS SUMMARY | 2024-11-11 19:15 | XMS_ITS | Encounter Summary ---
Author Organization [employer] Address [address] [facility] 7t [place] [address] Care Team Providers Care Lithography Contact Worker Name Role Phone Syl Godfrey Primary Care Provider [phone] Reason for Visit * Reason Onset Date Comments Med Refill 05/10/2024 Encounter Details Date Type Department Care Team ([facility] st Contact Info) Description 05/10/2024 Telephone [facility] MEDICINE [address] [place], [place] [phone] Syl Godfrey ANP [address] [place] [address] Med Refill Social History Tobacco Use Types [...] Telephone Encounter - Miranda Grove LPN - 05/10/2024 9:51 AM EDT Medication was sent to [facility] #[id number] on 01/26/24 #30 with 3 refills. * Telephone Encounter - Leonardo Bailon - 05/10/2024 9:33 AM EDT TC from pt requesting medication refill. Medications needing refill : melatonin 5 MG tablet To be sent to: [facility] #[id number] - [place], [place] - [address] [place] [address] documented in this encounter Plan of Treatment Upcoming Encounters Date Type Department Care Team (Late st Contact Info) Description 11/22/2024 2:15 PM EDT Office Visit [facility] MEDICINE [address] [place] [address] Syl Godfrey ANP [address] [place] [address] 01/31/2025 1:30 PM EDT Office Visit [facility] MEDICINE [address] [place] [address] Syl Godfrey ANP [address] [place] [address] documented as of this encounter Visit Diagnoses Not on filedocumented in this encounter Additional Health Concerns Assessment Noted Time PHQ-9 Depression Total Score: 16 024 1:50 PM EDT documented as of this encounter Care Teams Lithography Contact Worker Relationship Specialty Start Date End Date Syl Godfrey ANP [address] [place] [address] PCP - General Family Medicine 04/05/20 documented as of this encounter
--- OUTSIDE RECORDS SUMMARY | 2024-11-11 19:15 | XMS_ITS | Encounter Summary ---
Author Organization [employer] Address [address] [facility] 7t [place] [address] Care Team Providers Care Environmental Officer Name Role Phone Syl Godfrey Primary Care Provider [phone] Reason for Visit * Reason Comments Med Refill Encounter Details Date Type Department Care Team ([facility] st Contact Info) Description 09/13/2024 Refill [facility] MEDICINE [address] [place], [place] [phone] Syl Godfrey ANP [address] [place] [address] Benign essential HTN Social History Tobacco Use [...] Description 11/22/2024 2:15 PM EDT Office Visit [facility] MEDICINE [address] [place] [address] Syl Godfrey ANP [address] [place] [address] 01/31/2025 1:30 PM EDT Office Visit [address] [address] Syl Godfrey ANP [address] [place] [address] documented as of this encounter Visit Diagnoses Diagnosis Benign essential HTN documented in this encounter Additional Health Concerns Assessment Noted Time PHQ-9 Depression Total Score: 16 024 1:50 PM EDT documented as of this encounter Care Teams Environmental Officer Relationship Specialty Start Date End Date Syl Godfrey ANP [address] [place] [address] PCP - General Family Medicine 04/05/20 documented as of this encounter
--- OUTSIDE RECORDS SUMMARY | 2024-11-11 19:15 | XMS_ITS | Encounter Summary ---
Author Organization [employer] Address [address] [facility] 7t [place] [address] Care Team Providers Care News Cameraman Name Role Phone Syl Godfrey Primary Care Provider [phone] Reason for Visit * Reason Onset Date Comments Med Refill 11/26/2023 Encounter Details Date Type Department Care Team ([facility] st Contact Info) Description 11/26/2023 Telephone [facility] MEDICINE [address] [place], [place] [phone] Syl Godfrey ANP [address] [place] [address] Med Refill Social History Tobacco Use Types [...] Telephone Encounter - Miranda Grove LPN - 11/26/2023 9:37 AM EDT Medication pended to PCP. * Telephone Encounter - Justina Swann - 11/26/2023 8:43 AM EDT TC from pt requesting medication refill. Medications needing refill : trazodone and melatonin To be sent to: [id number] [address] documented in this encounter Plan of Treatment Upcoming Encounters Date Type Department Care Team (Late st Contact Info) Description 11/22/2024 2:15 PM EDT Office Visit [address] [address] Syl Godfrey ANP [address] [place] [address] 01/31/2025 1:30 PM EDT Office Visit [address] [address] Syl Godfrey ANP [address] [place] [address] documented as of this encounter Visit Diagnoses Not on filedocumented in this encounter Additional Health Concerns Assessment Noted Time PHQ-9 Depression Total Score: 17 023 3:15 PM EDT documented as of this encounter Care Teams News Cameraman Relationship Specialty Start Date End Date Syl Godfrey ANP [address] [place] [address] PCP - General Family Medicine 04/05/20 documented as of this encounter
--- OUTSIDE RECORDS SUMMARY | 2024-11-11 19:15 | XMS_ITS | Encounter Summary ---
Author Organization [employer] Address [address] [facility] 7t [place] [address] Care Team Providers Care Shovel Loader Operator Name Role Phone Syl Godfrey Primary Care Provider [phone] Encounter Details Date Type Department Care Team (Late st Contact Info) Description 10/29/2024 1:[address] [facility] MEDICINE [address] [place] [address] Syl Godfrey ANP [address] [place] [address] Other fatigue (Primary Dx); Primary insomnia Social History Tobacco Use Types Packs/Day Years [...] AM EDT documented as of this encounter Progress Notes * BRIANNA Bhatia - 10/29/2024 1:15 PM EST Subjective Patient ID: Dilia Boateng is a 58 y.o. female who presents for No chief complaint on file.. 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 Pt reporting fatigue. Zepbound rx'd 28d rx dispensed 09/20/24 She is tired all the time, hard to be active or do anything. Sometimes feeling lightheaded when shestands up quickly. Memory has been worse. Labs ordered but not yet obtained. Non-smoker Lab Results Component Value Date HGBA1C 5.2 12/25/2022 Review of Systems Constitutional: Positive for fatigue. Negative for chills and unexpected weight change. Respiratory: Negative for shortness of breath and wheezing. Gastrointestinal: Negative for diarrhea and vomiting. Psychiatric/Behavioral: Positive for sleep disturbance. Objective Physical Exam Exam limited by telehealth format. Pt speaking clearly in complete sentences. Assessment/Plan Diagnoses and all orders for this visit: Other fatigue As below - Insulin; Future Primary insomnia Decrease trazodone to 100mg as possibly contributing to memory loss Increase melatonin to 10mg Recommend stop zepbound after this last injection Consider referral to prison psychiatrist at follow-up She will get labs done as ordered documented in this encounter Plan of Treatment Upcoming Encounters Date Type Department Care Team (Late st Contact Info) Description 11/22/2024 2:15 PM EDT Office [address] [facility] [address] [facility] [place] [address] Syl Godfrey ANP [address] [place] [address] 01/31/2025 1:30 PM EDT Office Visit [facility] [address] [facility] [place] [address] Syl Godfrey ANP 230 [facility] [place] [phone] documented as of this encounter Procedures Procedure Name Priority Date/Time Associated Diagnosis Comments INSULIN Routine 11/11/2024 4:06 PM EST Other fatigue documented in this encounter Results * Insulin (11/11/2024 4:06 PM EST) [facility] Signature Insulin 5 2 - 29 uU/mL [facility] Comment:This test was perfor med using the Incuron chemiluminescentmethod. Values obtained from different assay methods cannot beused interchangeably. This insulin assay shows a possiblecross-reactivity with antibodies generated against insulin(immunoreactive insulin and some patients treated withbovine or porcine insulin). Insulin levels may be measuredlower in patients with insulin autoimmune syndrome orfamilial high pro-insulinemia. Blood Venous blood specimen / Unknown 11/11/2024 4:06 PM EST 11/11/2024 6:11 PM EST Syl REED LAB BLOOD ORDERABLES Final Resul t [facility] [address] [place] [address] [phone] documented in this encounter Visit Diagnoses Diagnosis Other fatigue- Primary Primary insomnia Persistent disorder of initiating or maintaining sleep documented in this encounter Additional Health Concerns Assessment Noted Time PHQ-9 Depression Total Score: 16 024 1:50 PM EDT documented as of this encounter Care Teams Shovel Loader Operator Relationship Specialty Start Date End Date Syl Godfrey ANP [address] [place] [address] PCP - General Family Medicine 04/05/20 documented as of this encounter
--- OUTSIDE RECORDS SUMMARY | 2024-11-11 19:15 | XMS_ITS | Encounter Summary ---
Author Organization [employer] Address [address] [facility] 7t [place] [address] Care Team Providers Care Fruit Sorter Name Role Phone Syl Godfrey Primary Care Provider Reason for Visit * Reason Comments Sore Throat Nasal Congestion Encounter Details Date Type Department Care Team ([facility] st Contact Info) Description 11/11/2024 3:40 PM EST Office Visit [facility] [address] [place] [address] Miranda Winkler DO [address] [place] [address] Acute URI (Primary Dx) Social History Tobacco Use Types [...] AM EDT documented as of this encounter Last Filed Vital Signs Vital Sign Reading [...] 12.8 oz) 11/11/2024 3:36 PM EST Height - - Body Mass Index 22.4 01/26/2024 1:49 PM EDT documented in this encounter Progress Notes * Miranda Winkler, DO - 11/11/2024 3:40 PM EST SUBJECTIVE Dilia Boateng is a 58 y.o. female who presents for Sick Visit. She presents to [place] today c/o sore throat and mucous x 3 days. She says that her granddaughter has been staying with her this week and tested positive for the fluand strep and she wanted to get tested. She says that she was sick 3 days ago. She had fever of 102two days ago. She still has a lot of of congestion and mucous in her throat. She has some cough, mostly dry. She denies any headache or ear pain. No SOB. No N/V/D. She says she takes allergy pill every day. She used to use flonase. 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 HENT: Positive for congestion, postnasal drip and sore throat. Negative for ear pain and sinus pressure. Respiratory: Positive for cough. Negative for shortness of breath. Cardiovascular: Negative for chest pain, palpitations and leg swelling. Gastrointestinal: Negative for abdominal pain, diarrhea, nausea and vomiting. Neurological: Negative for weakness and headaches. Patient Active Problem List Diagnosis Allergic rhinitis Anxiety Bipolar 2 disorder (CMS/HCC) Chronic pain Cyst of thyroid Goiter Heel pain Hypertriglyceridemia Idiopathic urticaria Insomnia Transient cerebral ischemia Diarrhea Arthritis of right subtalar joint Routine physical examination Screening for colorectal cancer Mass of axillary tail of left breast Vasomotor symptoms due to menopause Benign essential HTN Allergies Allergen Reactions Aspirin Other reaction(s): GI upset Cephalexin Lamotrigine Rash Other reaction(s): Rash OBJECTIVE Visit Vitals BP 123/71 (BP Location: Left arm, Patient Position: Sitting, BP Cuff Size: Adult) Pulse 61 Temp 98.2 ??F (36.8 ??C) (Oral) Resp 17 Wt 138 lb 12.8 oz (63 kg) SpO2 97% BMI 22.40 kg/m?? OB Status Postmenopausal Smoking Status Never BSA 1.71 m?? Physical Exam Constitutional: General: She is not in acute distress. Appearance: Normal appearance. HENT: Right Ear: Tympanic membrane, ear canal and external ear normal. Left Ear: Tympanic membrane, ear canal and external ear normal. Nose: Congestion present. No rhinorrhea. Mouth/Throat: Pharynx: Posterior oropharyngeal erythema present. No oropharyngeal exudate. Eyes: Extraocular Movements: Extraocular movements intact. Conjunctiva/sclera: Conjunctivae normal. Pupils: Pupils are equal, round, and reactive to light. Cardiovascular: Rate and Rhythm: Normal rate and regular rhythm. Heart sounds: Normal heart sounds. No murmur heard. Pulmonary: Effort: Pulmonary effort is normal. Breath sounds: Normal breath sounds. No wheezing or rhonchi. Musculoskeletal: Cervical back: Neck supple. No tenderness. Lymphadenopathy: Cervical: No cervical adenopathy. Neurological: General: No focal deficit present. Mental Status: She is alert and oriented to person, place, and time. Cranial Nerves: No cranial nerve deficit. Motor: No weakness. Gait: Gait normal. Psychiatric: Mood and Affect: Mood normal. Thought Content: Thought content normal. Office Visit on 11/11/2024 Component Date Value Ref Range Status Rapid COVID Ag 11/11/2024 Negative Final Rapid Strep A Screen 11/11/2024 Negative Negative, None Detected Final Influenza A 11/11/2024 Negative Negative, Indeterminate Final Influenza B 11/11/2024 Negative Negative, Indeterminate Final Assessment/Plan Diagnoses and all orders for this visit: Acute URI Likely viral, well-appearing -provided reassurance -encouraged supportive care measures -advised stay well-hydrated -cont zyrtec daily -trial nasacort daily -trial tessalon pearles to help with cough -advised mucinex as needed -encouraged motrin/tylenol prn -advised contact [facility] or go to ED if no improvement or sx worsen, she agrees with plans --Follow-up with PCP as scheduled or sooner prn-- Current Outpatient Medications: atorvastatin (Lipitor) 40 MG tablet, TAKE 1 TABLET BY MOUTH EVERY DAY, Disp: 90 tablet, Rfl: 3 benzonatate (Tessalon Perles) 100 MG capsule, Take 1 capsule (100 mg) by mouth if needed in the morning, at noon, and at bedtime for cough for up to 10 days. Do not crush or chew., Disp: 30 capsule, Rfl: 0 buPROPion XL (Wellbutrin XL) 300 MG 24 hr tablet, TAKE 1 TABLET (300 MG) BY MOUTH IN THE MORNING, Disp: 90 tablet, Rfl: 1 cetirizine (ZyrTEC) 10 MG tablet, TAKE 1 TABLET BY MOUTH EVERY DAY NEEDED FOR FOR ALLERGY, Disp:90 tablet, Rfl: 3 guaiFENesin (Mucinex) 600 MG 12 hr tablet, Take 2 tablets (1,200 mg) by mouth if needed in the morning and at bedtime for cough or congestion. Do not crush, chew, or split., Disp: 30 tablet, Rfl: 0 hydroCHLOROthiazide 12.5 MG tablet, TAKE 1 TABLET BY MOUTH EVERY DAY, Disp: 90 tablet, Rfl: 0 ibuprofen 800 MG tablet, TAKE 1 TABLET BY MOUTH 3 TIMES DAILY., Disp: 60 tablet, Rfl: 1 melatonin 10 MG tablet, Take 1 tablet (10 mg) by mouth if needed at bedtime (insomnia)., Disp: 30 tablet, Rfl: 11 melatonin 5 MG tablet, TAKE 1 TABLET BY MOUTH AT BEDTIME NEEDED FOR INSOMNIA, Disp: 30 tablet, Rfl: 5 Multiple Vitamin (multivitamin) tablet, TAKE 1 TABLET BY MOUTH EVERYDAY IN THE MORNING, Disp: 90 tablet, Rfl: 1 omega-3 acid ethyl esters (Lovaza) 1 g capsule, Take 1 capsule (1 g) by mouth 2 times daily., Disp:60 capsule, Rfl: 11 QUEtiapine (SEROquel) 300 MG tablet, TAKE 1 TABLET BY MOUTH EVERYDAY AT BEDTIME, Disp: 30 tablet, Rfl: 1 traZODone (Desyrel) 100 MG tablet, TAKE 1 - 1.5 TABLET(s) BY MOUTH EVERYDAY AT BEDTIME NEEDED FOR INSOMNIA, Disp: 45 tablet, Rfl: 2 triamcinolone (Nasacort) 55 MCG/ACT nasal inhaler, Administer 2 sprays into each nostril Once per day., Disp: 49.5 g, Rfl: 3 Scribe Attestation: Hernandez Hansen, am serving as a scribe to document services personally performed by Miranda Pires, based on the patient's response to questions by provider and provider's statements to me. 11/11/24 4:03 PM Physicians Attestation: Miranda Hansen DO, have reviewed the information by the scribe, Hernandez Villa, for accuracy and agree with its content. documented in this encounter Plan of Treatment Upcoming Encounters Date Type Department Care Team (Late st Contact Info) Description 11/22/2024 2:15 PM EDT Office Visit [facility] [address] [place] [address] Syl Godfrey ANP [address] [place] [address] 01/31/2025 1:30 PM EDT Office Visit [facility] [address] [place] [address] Syl Godfrey ANP [address] [place] [address] documented as of this encounter Procedures Procedure Name Priority Date/Time Associated Diagnosis Comments POCT INFLUENZA B (ID NOW RAPID MOLECULAR) Routine 11/11/2024 4:00 PM EST Acute URI POCT INFLUENZA A (ID NOW RAPID MOLECULAR) Routine 11/11/2024 4:00 PM EST Acute URI POCT RAPID COVID ANTIGEN Routine 11/11/2024 4:00 PM EST Acute URI POCT RAPID STREP A Routine 11/11/2024 4: 00 PM EST Acute URI documented in this encounter Results * Influenza B (ID NOW Rapid Molecular) (11/11/2024 4:00 PM EST) Pathologist [facility] Influenza B Negative Negative, Indeterminate [facility] Swab 11/11/2024 4:00 PM EST Miranda Winkler DO POINT OF CARE TEST ENTER/CHRISTINE T ORDERABLES Final Result [facility] [address] [place] [phone] [phone] * Influenza A (ID NOW Rapid Molecular) (11/11/2024 4:00 PM EST) Pathologist [facility] Influenza A Negative Negative, Indeterminate [facility] Swab 11/11/2024 4:00 PM EST Miranda Cathi DO POINT OF CARE TEST ENTER/CHRISTINE T ORDERABLES Final Result Performing Organization Address [facility] Co de Phone Number [facility] [address] [place] [phone] * POCT rapid strep A manually resulted (11/11/2024 4:00 PM EST) Rapid Strep A Screen Negative Negative, None Detected [facility] Swab 11/11/2024 4:00 PM EST Miranda Cathi DO POINT OF CARE TEST ENTER/CHRISTINE T ORDERABLES Final Result Performing Organization Address [facility] Co de Phone Number [facility] [address] [place] [phone] * POCT Rapid COVID Ag (11/11/2024 4:00 PM EST) Rapid COVID Ag Negative [facility] Swab 11/11/2024 4:00 PM EST Miranda Brownabdullahi DO POINT OF CARE TEST ENTER/CHRISTINE T ORDERABLES Final Result Performing Organization Address [facility] de Phone Number [facility] [address] [place] [phone] documented in this encounter Visit Diagnoses Diagnosis Acute URI- Primary Acute upper respiratory infections of unspecified site documented in this encounter Additional Health Concerns Assessment Noted Time PHQ-9 Depression Total Score: 16 024 1:50 PM EDT documented as of this encounter Care Teams Fruit Sorter Relationship Specialty Start Date End Date Syl Godfrey ANP [address] [place] [address] PCP - General Family Medicine 04/05/20 documented as of this encounter
--- OUTSIDE RECORDS SUMMARY | 2024-11-11 19:15 | XMS_ITS | Encounter Summary ---
Author Organization [employer] Address [address] [place] [address] Care Team Providers Care Nutrition Coordinator Name Role Phone Syl Godfrey Primary Care Provider [phone] Reason for Visit * Reason Onset Date Comments Referral 09/18/2022 Encounter Details Date Type Department Care Team (Late st Contact Info) Description 09/18/2022 Telephone [facility] [address] [place] [address] Syl Godfrey ANP [address] [place] [address] [phone] Referral Social History Tobacco Use Types Packs/Day Years Used Date Smoking Tobacco: Never Assessed Comments Unknown Sex and Gender Information Value Date Recorded Sex Assigned at Female 07/15/2022 10:14 AM EDT Legal Sex Female 10:14 AM EDT Gender Identity Female 07/15/2022 10:14 AM EDT Sexual Orientation Straight 07/15/2022 10 :14 AM EDT documented as of this encounter Miscellaneous Notes * Telephone Encounter - Minerva Fernandez - 09/18/2022 10:30 AM EST Tc from pt requesting a referral to are eye clinic here ([facility]) . documented in this encounter Plan of Treatment Upcoming Encounters Date Type Department Care Team (Late st Contact Info) Description 11/22/2024 2:15 PM EDT Office Visit [facility] [address] [place] [address] [phone] Syl Godfrey ANP [address] [place] [address] [place] [address] 01/31/2025 1:30 PM EDT Office Visit [facility] [address] [place], [place] [phone] Syl Godfrey ANP [address] [place] [address] documented as of this encounter Visit Diagnoses Not on filedocumented in this encounter Care Teams Nutrition Coordinator Relationship Specialty Start Date End Date Syl Godfrey ANP [address] [place] [address] PCP - General Family Medicine 04/05/20 documented as of this encounter
--- OUTSIDE RECORDS SUMMARY | 2024-11-11 19:15 | XMS_ITS | Encounter Summary ---
Author Organization [employer] Address [address] [facility] 7t [place] [address] Care Team Providers Care Material Expediter Name Role Phone Syl Godfrey Primary Care Provider [phone] Reason for Visit * Reason Onset Date Comments Med Refill 10/29/2024 Encounter Details Date Type Department Care Team ([facility] st Contact Info) Description 10/29/[address] [facility] [address] [place] [address] Syl Godfrey ANP [address] [place] [address] Benign essential HTN Social History Tobacco Use [...] 2:15 PM EDT Office Visit [facility] [address] [place] [phone] Syl Godfrey ANP [address] [place] [address] 01/31/2025 1:30 PM EDT Office Visit [address] [address] Syl Godfrey ANP [address] [place] [address] documented as of this encounter Visit Diagnoses Diagnosis Benign essential HTN documented in this encounter Additional Health Concerns Assessment Noted Time PHQ-9 Depression Total Score: 16 024 1:50 PM EDT documented as of this encounter Care Teams Material Expediter Relationship Specialty Start Date End Date Syl Godfrey ANP [address] [place] [phone] PCP - General Family Medicine 04/05/20 documented as of this encounter
--- OUTSIDE RECORDS SUMMARY | 2024-11-11 19:15 | XMS_ITS | Encounter Summary ---
Author Organization [employer] Address [address] [facility] 7t [place] [address] Care Team Providers Care Hire Car Driver Name Role Phone Syl Godfrey Primary Care Provider [phone] Reason for Visit * Reason Onset Date Comments Med Refill 05/10/2024 Encounter Details Date Type Department Care Team ([facility] st Contact Info) Description 05/10/2024 Telephone [facility] [address] [place], [place] [phone] Syl Godfrey ANP [address] [place] [address] Med Refill Social History Tobacco Use Types [...] encounter Miscellaneous Notes * Telephone Encounter - Leonardo Bailon - 05/10/2024 9:31 AM EDT TC from pt requesting medication refill. Medications needing refill : oxyCODONE-acetaminophen (Percocet) 5-325 MG tablet To be sent to: [facility]/pharmacy #[id number] documented in this encounter Plan of Treatment Upcoming Encounters Date Type Department Care Team (Late st Contact Info) Description 11/22/2024 2:15 PM EDT Office Visit [facility] [address] [place] [address] Syl Godfrey ANP [address] [place] [address] 01/31/2025 1:30 PM EDT Office Visit [facility] [address] [place] [address] Syl Godfrey ANP [address] [place] [address] documented as of this encounter Visit Diagnoses Not on filedocumented in this encounter Additional Health Concerns Assessment Noted Time PHQ-9 Depression Total Score: 16 024 1:50 PM EDT documented as of this encounter Care Teams Hire Car Driver Relationship Specialty Start Date End Date Sly Godfrey ANP [address] [place] [address] PCP - General Family Medicine 04/05/20 documented as of this encounter
--- OUTSIDE RECORDS SUMMARY | 2024-11-11 19:15 | XMS_ITS | Encounter Summary ---
Author Organization [employer] Address [address] [facility] 7t [place] [address] Care Team Providers Care Artists' Booking Representative Name Role Phone Bekah Syl REED Primary Care Provider [phone] Reason for Visit * Reason Onset Date Comments Med Refill 11/02/2024 Encounter Details Date Type Department Care Team ([facility] st Contact Info) Description 11/02/2024 Refill [facility] [address] [place] [address] Kelsie Ruiz, RN [address] [place] [address] Chronic pain syndrome (Primary Dx) Social History Tobacco Use Types [...] Encounter - Kelsie Ruiz RN - 11/02/2024 9:39 AM EST Pt requesting refill percocet on mychart documented in this encounter Plan of Treatment Upcoming Encounters Date Type Department Care Team (Late st Contact Info) Description 11/22/2024 2:15 PM EDT Office Visit [facility] [address] [place] [address] Syl Godfrey ANP [address] [place] [address] 01/31/2025 1:30 PM EDT Office Visit [facility] [address] [place] [address] Syl Godfrey ANP [address] [place] [address] documented as of this encounter Visit Diagnoses Diagnosis Chronic pain syndrome- Primary documented in this encounter Additional Health Concerns Assessment Noted Time PHQ-9 Depression Total Score: 16 024 1:50 PM EDT documented as of this encounter Care Teams Artists' Booking Representative Relationship Specialty Start Date End Date Syl Godfrey ANP [address] [place] [address] PCP - General Family Medicine 04/05/20 documented as of this encounter
== END 2024-11-11 16:03 | disposition home or self-care (01) ==
LOC: HO.HHCL 16:02
PROVIDERS: Visit Provider Nurse Practitioner Primary Care
DX: R53.83 Other fatigue (principal); E78.1 Pure hyperglyceridemia
CPT/HCPCS: 36415; 80048; 80061; 83036; 83525; 84443; 85014; 85018

== ENCOUNTER 2024-11-16 15:18 | Outpatient (REF) | payer MEDICAID, SELFPAY ==
[2024-11-16 16:43] LABS: Anion Gap 12 (12-20); Blood Urea Nitrogen 19 mg/dL (9-16); Calcium 9.7 mg/dL (8.4-10.2); Carbon Dioxide 29 mmol/L (22-29); Chloride 104 mmol/L (96-108); Estimated Glomerular Filt Rate 60; Glucose Random 84 mg/dL (60-115); Potassium 3.9 mmol/L (3.3-5.1); Sodium 141 mmol/L (135-145)
--- OUTSIDE RECORDS SUMMARY | 2024-11-16 19:22 | XMS_ITS | Encounter Summary ---
Author Organization [employer] Address [address] [facility] 7t [place] [address] Care Team Providers Care [place] Guide Name Role Phone Bekah Syl REED Primary Care Provider [phone] Reason for Visit * Reason Onset Date Comments Med Refill 11/02/2024 Encounter Details Date Type Department Care Team ([facility] st Contact Info) Description 11/02/2024 Refill [facility] [address] [place] [address] Kelsie Ruiz, RN [address] [place] [address] Chronic pain syndrome (Primary Dx) Social History [...] Description 11/22/2024 2:15 PM EDT Office Visit [facility] [address] [place] [address] Syl Godfrey ANP [address] [place] [address] 01/31/2025 1:30 PM EDT Office Visit [facility] [address] [place] [address] Syl Godfrey ANP [address] [place] [address] documented as of this encounter Visit Diagnoses Diagnosis Chronic pain syndrome- Primary documented in this encounter Additional Health Concerns Assessment Noted Time PHQ-9 Depression Total Score: 16 024 1:50 PM EDT documented as of this encounter Care Teams [place] Guide Relationship Specialty Start Date End Date Syl Godfrey ANP [address] [place] [address] PCP - General Family Medicine 04/05/20 documented as of this encounter
--- OUTSIDE RECORDS SUMMARY | 2024-11-16 19:22 | XMS_ITS | Encounter Summary ---
Author Organization [employer] Address [address] [facility] 7t [place] [address] Care Team Providers Care Personal Financial Planner Name Role Phone Syl Godfrey Primary Care Provider [phone] Reason for Visit * Reason Comments Med Refill Encounter Details Date Type Department Care Team ([facility] st Contact Info) Description 02/24/2024 Refill [facility] [address] [place], [place] [phone] Syl Godfrey ANP [address] [place] [address] Social History Tobacco Use Types Packs/Day Years [...] 2:15 PM EDT Office Visit [facility] [address] [place] [phone] Syl Godfrey ANP [address] [place] [address] 01/31/2025 1:30 PM EDT Office Visit [address] [address] Syl Godfrey ANP [address] [place] [address] documented as of this encounter Visit Diagnoses Not on filedocumented in this encounter Additional Health Concerns Assessment Noted Time PHQ-9 Depression Total Score: 16 024 1:50 PM EDT documented as of this encounter Care Teams Personal Financial Planner Relationship Specialty Start Date End Date Syl Godfrey ANP [address] [place] [address] PCP - General Family Medicine 04/05/20 documented as of this encounter
--- OUTSIDE RECORDS SUMMARY | 2024-11-16 19:22 | XMS_ITS | Encounter Summary ---
Author Organization [facility] Address [address] [facility] 7t [place] [address] Care Team Providers Care Room Cooler Installer Name Role Phone Syl Godfrey Primary Care Provider Reason for Visit * Reason Comments Med Refill Encounter Details Date Type Department Care Team (Late st Contact Info) Description 02/04/2023 Refill [facility] [address] [place] [address] Syl Godfrey ANP [address] [place] [address] Social History Tobacco Use Types Packs/Day Years [...] Description 11/22/2024 2:15 PM EDT Office Visit [facility] [address] [place] [address] Syl Godfrey ANP [address] [place] [address] 01/31/2025 1:30 PM EDT Office Visit [facility] [address] [place] [address] Syl Godfrey ANP [address] [place] [address] documented as of this encounter Visit Diagnoses Not on filedocumented in this encounter Additional Health Concerns Assessment Noted Time PHQ-9 Depression Total Score: 17 023 3:15 PM EDT documented as of this encounter Care Teams Room Cooler Installer Relationship Specialty Start Date End Date Syl Godfrey ANP [address] [place] [address] PCP - General Family Medicine 04/05/20 documented as of this encounter
--- OUTSIDE RECORDS SUMMARY | 2024-11-16 19:22 | XMS_ITS | Encounter Summary ---
Author Organization [email or web address] Address [address] [facility] 7t [place] [address] Care Team Providers Care Bed Laborer Name Role Phone Bekah Syl REED Primary Care Provider [phone] Reason for Visit * Reason Onset Date Comments Med Refill 11/02/2024 Encounter Details Date Type Department Care Team ([facility] st Contact Info) Description 11/02/2024 Refill [facility] [address] [place] [address] Kelsie Ruiz, RN [address] [place] [address] Social History Tobacco Use Types Packs/Day Years [...] Description 11/22/2024 2:15 PM EDT Office Visit [facility] [address] [place] [address] Syl Godfrey ANP [address] [place] [address] 01/31/2025 1:30 PM EDT Office Visit [facility] [address] [place] [address] Syl Godfrey ANP [address] [place] [address] documented as of this encounter Visit Diagnoses Not on filedocumented in this encounter Additional Health Concerns Assessment Noted Time PHQ-9 Depression Total Score: 16 024 1:50 PM EDT documented as of this encounter Care Teams Bed Laborer Relationship Specialty Start Date End Date Syl Godfrey ANP [address] [place] [address] PCP - General Family Medicine 04/05/20 documented as of this encounter
--- OUTSIDE RECORDS SUMMARY | 2024-11-16 19:22 | XMS_ITS | Encounter Summary ---
Author Organization [employer] Address [address] [facility] 7t [place] [address] Care Team Providers Care Locomotive Engineer Electric Name Role Phone Syl Godfrey Primary Care Provider [phone] Reason for Visit * Reason Onset Date Comments Med Refill 08/03/2024 Encounter Details Date Type Department Care Team ([facility] st Contact Info) Description 08/03/2024 Refill [facility] [address] [place] [address] Syl Godfrey ANP 230 [place] [address] Arthritis of right subtalar joint Social History [...] 2:15 PM EDT Office Visit [facility] [address] [place] [address] Syl Godfrey ANP [address] [place] [address] 01/31/2025 1:30 PM EDT Office Visit [facility] [address] [place] [address] Syl Godfrey ANP [address] [place] [address] documented as of this encounter Visit Diagnoses Diagnosis Arthritis of right subtalar joint documented in this encounter Additional Health Concerns Assessment Noted Time PHQ-9 Depression Total Score: 16 024 1:50 PM EDT documented as of this encounter Care Teams Locomotive Engineer Electric Relationship Specialty Start Date End Date Syl Godfrey ANP [address] [place] [address] PCP - General Family Medicine 04/05/20 documented as of this encounter
--- OUTSIDE RECORDS SUMMARY | 2024-11-16 19:22 | XMS_ITS | Encounter Summary ---
Author Organization [employer] Address [address] [place] [address] Care Team Providers Care Shirt Presser Name Role Phone Syl Godfrey Primary Care Provider [phone] Reason for Visit * Reason Onset Date Comments Referral 09/18/2022 Encounter Details Date Type Department Care Team (Late st Contact Info) Description 09/18/2022 Telephone [facility] MEDICINE [address] [place] [address] Syl Godfrey ANP [address] [place] [address] [phone] Referral Social History Tobacco Use Types Packs/Day [...] a referral to are eye clinic here ([facility]) . documented in this encounter Plan of Treatment Upcoming Encounters Date Type Department Care Team (Late st Contact Info) Description 11/22/2024 2:15 PM EDT Office Visit [facility] MEDICINE [address] [place] [address] [phone] Syl Godfrey ANP [address] [place] [address] [place] [address] 01/31/2025 1:30 PM EDT Office Visit [facility] MEDICINE 230 [place], [place] [phone] Syl Godfrey ANP 230 [place] [address] documented as of this encounter Visit Diagnoses Not on filedocumented in this encounter Care Teams Shirt Presser Relationship Specialty Start Date End Date Syl Godfrey ANP [address] [place] [address] PCP - General Family Medicine 04/05/20 documented as of this encounter
--- OUTSIDE RECORDS SUMMARY | 2024-11-16 19:22 | XMS_ITS | Encounter Summary ---
Author Organization [employer] Address [address] [facility] 7t [place] [address] Care Team Providers Care Elevator Repairer Helper Name Role Phone Syl Godfrey Primary Care Provider [phone] Reason for Visit * Reason Onset Date Comments Med Refill 11/26/2023 Encounter Details Date Type Department Care Team ([facility] st Contact Info) Description 11/26/2023 Telephone [facility] MEDICINE 230 [place], [place] [phone] Syl Godfrey ANP 230 [place] [address] Med Refill Social History Tobacco Use Types [...] trazodone and melatonin To be sent to: [id number] [address] documented in this encounter Plan of Treatment Upcoming Encounters Date Type Department Care Team (Late st Contact Info) Description 11/22/2024 2:15 PM EDT Office Visit [address] [address] Syl Godfrey ANP 230 [place] [address] 01/31/2025 1:30 PM EDT Office Visit [address] [address] Syl Godfrey ANP 230 [place] [address] documented as of this encounter Visit Diagnoses Not on filedocumented in this encounter Additional Health Concerns Assessment Noted Time PHQ-9 Depression Total Score: 17 023 3:15 PM EDT documented as of this encounter Care Teams Elevator Repairer Helper Relationship Specialty Start Date End Date Syl Godfrey ANP 230 [place] [address] PCP - General Family Medicine 04/05/20 documented as of this encounter
--- OUTSIDE RECORDS SUMMARY | 2024-11-16 19:22 | XMS_ITS | Encounter Summary ---
Author Organization [employer] Address [address] [facility] 7t [place] [address] Care Team Providers Care Economics Teacher Name Role Phone Syl Godfrey Primary Care Provider [phone] Reason for Visit * Reason Onset Date Comments CAR WORKER HELPER PHONE TRIAGE 11/11/2024 Encounter Details Date Type Department Care Team ([facility] st Contact Info) Description 11/11/2024 Telephone [facility] [address] [place] [address] Miranda Winkler DO 230 [place] [address] CAR WORKER HELPER PHONE TRIAGE Social History Tobacco Use Types Packs/Day Years [...] encounter Miscellaneous Notes * Telephone Encounter - Love Jane RN - 11/15/2024 10:19 AM EST Per [facility] [employer], pt did not go to ED. Called [facility] pharmacy, per pharmacist pt pickedup potassium supplement on 11/12 (Friday). Called pt who stated that she is taking the medication and started it on Friday. Per Dr Winkler's recommendation, advised pt to come get labs today. Pt declined, stated I am too busy today but can come tomorrow. She reports eating potassium rich foods such as oranges, bananas, coconut water. She stated she had had diarrhea due to eating milk products the day before she saw Dr Winkler last week and wasn't eating which she thinks contributed to her low K levels, she reports feeling okay. Advised her to come to lab tomorrow to recheck potassium level. R e-advised ED precautions: if develop muscle weakness, muscle twitching, lightheadedness, or palpitations. Pt verbalized understanding, no further questions. * Telephone Encounter - Chanelle Ortiz RN - 11/12/2024 3:00 PM EST TC placed to pt in regards to critical potassium that was called into the triage line on 11/11/2024.The call was taken by the seo consultant provider Dr. Forrester who notified the pt that she should proceed to the ED for K supplementation. At that time the pt denied needing to go as she felt fine. Pt sent a [employer] message today (11/12) with concerns regarding her lab results and was questioning if she needed a potential potassium drip. Pt was advised again that it is the best course of action to go to the ED for evaluation as lower K levels can lead to heart irregularities along with lightheadedness and muscle cramping. Pt also advise that Dr. Forrester sent over potassium supplementation to the pharmacy but the pt states that she is going to go to [facility] ED sometime this evening. Pt further informed that our office will follow up on Friday to make sure she was seen and/or picked up potassium at thephamacy. Pt stated understanding of this information and the importance of managing her current potassium levels. * Telephone Encounter - Miranda Winkler DO - 11/11/2024 8:13 PM EST Received call from [facility] lab with critical K+ level of 2.9 and reported Cr of 1.14. Called pt at her home number and reviewed critical results with her. Advised pt that her level is considered severe hypokalemia and recommended that she go to ED for K+ supplementation but she refused as she feels fine. She was seen by me earlier today with URI sx in [place]. She denied any GI sx at visit. She says that she hasn't had much of an appetite with the use of wegovy and zepbound so doesn't eat much at all. Recommend that she eat high K+ meal tonight, reviewed food options. She agrees to start PO K+ supplementation tomorrow, rx sent. Advised pt to repeat K+ on Friday to ensure that K+ levels have improved. Advised pt to go to ED if develops any muscle weakness, muscle twitching, lightheadedness, or palpitations/irregular heartbeat. Advised contact [facility] with any concerns. She agrees with plans. Will notify PCP for f/u. documented in this encounter Plan of Treatment Upcoming Encounters Date Type Department Care Team (Late st Contact Info) Description 11/22/2024 2:15 PM EDT Office Visit [facility] [address] [place] [address] Syl Godfrey ANP 230 [place] [address] 01/31/2025 1:30 PM EDT Office Visit [facility] [address] [place] [address] Syl Godfrey ANP [address] [place] [address] documented as of this encounter Procedures Procedure Name Priority Date/Time Associated Diagnosis Comments BASIC METABOLIC PANEL Routine 11/16/2024 3:22 PM EST Hypokalemia documented in this encounter Results * (ABNORMAL) Basic Metabolic Panel (11/16/2024 3:22 PM EST) Sodium 141 135 - 145 mmol/L [facility] Potassium 3.9 3.3 - 5.1 mmol/L [facility] Chloride 104 96 - 108 mmol/L [facility] Carbon Dioxide 29 22 - 29 mmol/L [facility] Anion Gap 12 12 - 20 [facility] Urea Nitrogen (BUN) 19(H) 9 - 16 mg/dL [facility] Creatinine, Serum 0.96 0.5 - 1.4 mg/dL [facility] Estimated Glomerular Filt Rate 60 [facility] Comment:Chronic Kidney Disea se: Estimated GFR < 60 mL/min/1.41l5Nclyxq Kidney Disease: Estimated GFR < 15 mL/min/1.73m2 Glucose 84 60 - 115 mg/dL [facility] Calcium 9.7 8.4 - 10.2 mg/dL [facility] Blood Venous blood specimen / Unknown 11/16/2024 3:22 PM EST 11/16/2024 4:06 PM EST us Miranda Winkler DO LAB BLOOD ORDERABLES Final R esult [facility] [address] [place] [address] [phone] documented in this encounter Visit Diagnoses Diagnosis Hypokalemia- Primary Hypopotassemia documented in this encounter Additional Health Concerns Assessment Noted Time PHQ-9 Depression Total Score: 16 024 1:50 PM EDT documented as of this encounter Care Teams Economics Teacher Relationship Specialty Start Date End Date Syl Godfrey ANP [address] [place] [address] PCP - General Family Medicine 04/05/20 documented as of this encounter
--- OUTSIDE RECORDS SUMMARY | 2024-11-16 19:22 | XMS_ITS | Encounter Summary ---
Author Organization [employer] Address [address] [facility] 7t [place] [address] Care Team Providers Care Cost Controller Name Role Phone Syl Godfrey Primary Care Provider [phone] Reason for Visit * Reason Onset Date Comments Prior Authorization 10/01/2023 Encounter Details Date Type Department Care Team ([facility] st Contact Info) Description 10/01/2023 Telephone [facility] MED[facility]INE 230 [place], [place] [phone] Syl Godfrey ANP 230 [place] [address] Prior Authorization Social History Tobacco Use Types [...] 12:39 PM EST SPOKE WITH PHARMACIST AT [facility], PATIENT DOES NO NEED PA ON MEDICATION [...] Description 11/22/2024 2:15 PM EDT Office Visit [facility] 230 [place] [address] Syl Godfrey ANP [address] [place] [address] 01/31/2025 1:30 PM EDT Office Visit [facility] [address] [place] [address] Syl Godfrey ANP [address] [place] [address] documented as of this encounter Visit Diagnoses Not on filedocumented in this encounter Additional Health Concerns Assessment Noted Time PHQ-9 Depression Total Score: 17 023 3:15 PM EDT documented as of this encounter Care Teams Cost Controller Relationship Specialty Start Date End Date Syl Godfrey ANP [address] [place] [address] PCP - General Family Medicine 04/05/20 documented as of this encounter
--- OUTSIDE RECORDS SUMMARY | 2024-11-16 19:22 | XMS_ITS | Encounter Summary ---
Author Organization [employer] Address [address] [facility] 7t [place] [address] Care Team Providers Care Kiln Firer Helper Name Role Phone Syl Godfrey Primary Care Provider [phone] Reason for Visit * Reason Onset Date Comments Med Refill 10/29/2024 Encounter Details Date Type Department Care Team ([facility] st Contact Info) Description 10/29/2024 Refill [facility] 230 [place] [address] Syl Godfrey ANP 230 [place] [address] Benign essential HTN Social History Tobacco Use [...] Description 11/22/2024 2:15 PM EDT Office Visit [facility] MED[facility]INE [address] [place] [address] Syl Godfrey ANP [address] [place] [address] 01/31/2025 1:30 PM EDT Office Visit [address] [address] Syl Godfrey ANP [address] [place] [address] documented as of this encounter Visit Diagnoses Diagnosis Benign essential HTN documented in this encounter Additional Health Concerns Assessment Noted Time PHQ-9 Depression Total Score: 16 024 1:50 PM EDT documented as of this encounter Care Teams Kiln Firer Helper Relationship Specialty Start Date End Date Syl Godfrey ANP [address] [place] [address] PCP - General Family Medicine 04/05/20 documented as of this encounter
--- OUTSIDE RECORDS SUMMARY | 2024-11-16 19:22 | XMS_ITS | Encounter Summary ---
Author Organization [employer] Address [address] [facility] 7t [place] [address] Care Team Providers Care Plan Nurse Name Role Phone Syl Godfrey Primary Care Provider [phone] Reason for Visit * Reason Comments Med Refill Encounter Details Date Type Department Care Team ([facility] st Contact Info) Description 09/13/2024 Refill [facility] MEDICINE 230 [place], [place] [phone] Syl Godfrey ANP 230 [place] [address] Benign essential HTN Social History Tobacco Use [...] Description 11/22/2024 2:15 PM EDT Office Visit [facility] MEDICINE [address] [place] [address] Syl Godfrey ANP [address] [place] [address] 01/31/2025 1:30 PM EDT Office Visit [address] [address] Syl Godfrey ANP [address] [place] [address] documented as of this encounter Visit Diagnoses Diagnosis Benign essential HTN documented in this encounter Additional Health Concerns Assessment Noted Time PHQ-9 Depression Total Score: 16 024 1:50 PM EDT documented as of this encounter Care Teams Plan Nurse Relationship Specialty Start Date End Date Syl Godfrey ANP [address] [place] [address] PCP - General Family Medicine 04/05/20 documented as of this encounter
--- OUTSIDE RECORDS SUMMARY | 2024-11-16 19:22 | XMS_ITS | Encounter Summary ---
Author Organization [employer] Address [address] [facility] 7t [place] [address] Care Team Providers Care High Value Associate Name Role Phone Syl Godfrey Primary Care Provider [phone] Reason for Visit * Reason Comments Med Refill Encounter Details Date Type Department Care Team ([facility] st Contact Info) Description 10/21/2024 Refill [facility] MED[facility]INE 230 [place], [place] [phone] Syl Godfrey ANP 230 [place] [address] Benign essential HTN Social History Tobacco Use [...] Description 11/22/2024 2:15 PM EDT Office Visit [facility] MEDICINE [address] [place] [address] Syl Godfrey ANP [address] [place] [address] 01/31/2025 1:30 PM EDT Office Visit [address] [address] Syl Godfrey ANP [address] [place] [address] documented as of this encounter Visit Diagnoses Diagnosis Benign essential HTN documented in this encounter Additional Health Concerns Assessment Noted Time PHQ-9 Depression Total Score: 16 024 1:50 PM EDT documented as of this encounter Care Teams High Value Associate Relationship Specialty Start Date End Date Syl Godfrey ANP [address] [place] [address] PCP - General Family Medicine 04/05/20 documented as of this encounter
--- OUTSIDE RECORDS SUMMARY | 2024-11-16 19:22 | XMS_ITS | Encounter Summary ---
Author Organization [employer] Address [address] [facility] 7t [place] [address] Care Team Providers Care Booster Assembler Name Role Phone Bekah Syl REED Primary Care Provider [phone] Reason for Visit * Reason Comments Med Change Request Encounter Details Date Type Department Care Team ([facility] st Contact Info) Description 03/13/2023 Refill [facility] MED[facility]INE 230 [place] [address] Jocelyne Cheng CNM [address] [place] [address] Social History Tobacco Use Types Packs/Day Years [...] answer, left v/m. Will also message on Sendiot. * Telephone Encounter - Jocelyne Cheng CNM [...] Description 11/22/2024 2:15 PM EDT Office Visit [address] [address] Syl Godfrey ANP [address] [place] [address] 01/31/2025 1:30 PM EDT Office Visit [facility] MEDICINE [address] [place] [address] Syl Godfrey ANP [address] [place] [address] documented as of this encounter Visit Diagnoses Not on filedocumented in this encounter Additional Health Concerns Assessment Noted Time PHQ-9 Depression Total Score: 17 023 3:15 PM EDT documented as of this encounter Care Teams Booster Assembler Relationship Specialty Start Date End Date Syl Godfrey ANP [address] [place] [address] PCP - General Family Medicine 04/05/20 documented as of this encounter
--- OUTSIDE RECORDS SUMMARY | 2024-11-16 19:22 | XMS_ITS | Encounter Summary ---
Author Organization [employer] Address [address] [facility] 7t [place] [address] Care Team Providers Care Contingents Supervisor Name Role Phone Syl Godfrey Primary Care Provider [phone] Encounter Details Date Type Department Care Team (Late st Contact Info) Description 10/27/[address] [facility] MEDICINE 230 [place] [address] Mariah Betancur RN 230 [place] [address] Social History Tobacco Use Types Packs/Day Years [...] Advice Discussed: * Drink Fluids gloria [facility] Clinical Support (supporting Syl Godfrey, BRIANNA)1 hour [...] 11/22/2024 2:15 PM EDT Office Visit [facility]INE [address] [place] [address] Syl Godfrey ANP [address] [place] [address] 01/31/2025 1:30 PM EDT Office Visit [facility] [address] [place] [address] Syl Godfrey ANP [address] [place] [address] documented as of this encounter Visit Diagnoses Not on filedocumented in this encounter Additional Health Concerns Assessment Noted Time PHQ-9 Depression Total Score: 16 024 1:50 PM EDT documented as of this encounter Care Teams Contingents Supervisor Relationship Specialty Start Date End Date Syl Godfrey ANP [address] [place] [address] PCP - General Family Medicine 04/05/20 documented as of this encounter
--- OUTSIDE RECORDS SUMMARY | 2024-11-16 19:22 | XMS_ITS | Encounter Summary ---
Author Organization [employer] Address 75 [facility] 7t [place] [address] Care Team Providers Care Senior International Tax Manager Name Role Phone Bekah Syl REED Primary Care Provider [phone] Reason for Visit * Reason Comments Med Refill Encounter Details Date Type Department Care Team ([facility] st Contact Info) Description 08/17/[address] [facility]INE 230 [place] [address] Chino Ledezma FNP Social History Tobacco Use [...] 11/22/2024 2:15 PM EDT Office Visit [facility] [address] [place] [address] Syl Godfrey ANP [address] [place] [address] 01/31/2025 1:30 PM EDT Office Visit [facility] [address] [place] [address] Syl Godfrey ANP [address] [place] [address] documented as of this encounter Visit Diagnoses Not on filedocumented in this encounter Additional Health Concerns Assessment Noted Time PHQ-9 Depression Total Score: 17 023 3:15 PM EDT documented as of this encounter Care Teams Senior International Tax Manager Relationship Specialty Start Date End Date Syl Godfrey ANP [address] [place] [address] PCP - General Family Medicine 04/05/20 documented as of this encounter
--- OUTSIDE RECORDS SUMMARY | 2024-11-16 19:22 | XMS_ITS | Encounter Summary ---
Author Organization [employer] Address [address] [facility] 7t [place] [address] Care Team Providers Care Engineering Technician Name Role Phone GodfreySyl Primary Care Provider [phone] Reason for Visit * Reason Comments Med Refill Encounter Details Date Type Department Care Team ([facility] st Contact Info) Description 03/08/2024 Refill [facility] 230 [place] [address] Meghana Cloud MD 230 [place] [address] Benign essential HTN Social History Tobacco Use [...] Description 11/22/2024 2:15 PM EDT Office Visit [address] [address] Syl Godfrey ANP [address] [place] [address] 01/31/2025 1:30 PM EDT Office Visit [facility] [address] [place] [address] Syl Godfrey ANP [address] [place] [address] documented as of this encounter Visit Diagnoses Diagnosis Benign essential HTN documented in this encounter Additional Health Concerns Assessment Noted Time PHQ-9 Depression Total Score: 16 024 1:50 PM EDT documented as of this encounter Care Teams Engineering Technician Relationship Specialty Start Date End Date Syl Godfrey ANP [address] [place] [address] PCP - General Family Medicine 04/05/20 documented as of this encounter
--- OUTSIDE RECORDS SUMMARY | 2024-11-16 19:22 | XMS_ITS | Encounter Summary ---
Author Organization [employer] Address 75 [facility] 7t [place] [address] Care Team Providers Care Industrial Organization Manager Name Role Phone Syl Godfrey Primary Care Provider [phone] Reason for Visit * Reason Onset Date Comments Med Refill 05/10/2024 Encounter Details Date Type Department Care Team ([facility] st Contact Info) Description 05/10/2024 Telephone [facility] 230 [place], [place] [phone] Syl Godfrey ANP 230 [place] [address] Med Refill Social History Tobacco Use Types [...] 9:51 AM EDT Medication was sent to [id number] on 01/26/24 #30 with 3 refills. * Telephone Encounter - Leonardo Bailon - 05/10/2024 9:33 AM EDT TC from pt requesting medication refill. Medications needing refill : melatonin 5 MG tablet To be sent to: [facility][id number] - [place], [place] - [address] [place] [address] documented in this encounter Plan of Treatment Upcoming Encounters Date Type Department Care Team (Late st Contact Info) Description 11/22/2024 2:15 PM EDT Office Visit [facility] [address] [place] [address] Syl Godfrey ANP 230 [place] [address] 01/31/2025 1:30 PM EDT Office Visit [facility] [address] [place] [address] Syl Godfrey ANP 230 [place] [address] documented as of this encounter Visit Diagnoses Not on filedocumented in this encounter Additional Health Concerns Assessment Noted Time PHQ-9 Depression Total Score: 16 024 1:50 PM EDT documented as of this encounter Care Teams Industrial Organization Manager Relationship Specialty Start Date End Date Syl Godfrey ANP [address] [place] [address] PCP - General Family Medicine 04/05/20 documented as of this encounter
--- OUTSIDE RECORDS SUMMARY | 2024-11-16 19:22 | XMS_ITS | Encounter Summary ---
Author Organization [employer] Address [address] [facility] 7t [place] [address] Care Team Providers Care Metallurgist Helper Name Role Phone Syl Godfrey Primary Care Provider [phone] Encounter Details Date Type Department Care Team (Late st Contact Info) Description 10/29/2024 1:15 PM EST Telemedicine [facility] [address] [place] [address] Syl Godfrey ANP [address] [place] [address] Other fatigue (Primary Dx); Primary insomnia Social [...] after this last injection Consider referral to psychiatric social worker at follow-up She will get labs done as ordered documented in this encounter Plan of Treatment Upcoming Encounters Date Type Department Care Team (Late st Contact Info) Description 11/22/2024 2:15 PM EDT Office Visit [facility] [address] [facility] [place] [address] Syl Godfrey ANP [address] [place] [address] 01/31/2025 1:30 PM EDT Office Visit [facility] [address] [facility] [place] [address] Syl Godfrey ANP 230 [facility] [place] [phone] documented as of this encounter Procedures Procedure Name Priority Date/Time Associated Diagnosis Comments INSULIN Routine 11/11/2024 4:06 PM EST Other fatigue documented in this encounter Results * Insulin (11/11/2024 4:06 PM EST) [facility] Signature Insulin 5 2 - 29 uU/mL [facility] Comment:This test was perfor med using the MobFox chemiluminescentmethod. Values obtained from different assay methods [...] REED LAB BLOOD ORDERABLES Final Resul t [facility] [address] [place] [phone] [phone] documented in this encounter Visit Diagnoses Diagnosis Other fatigue- Primary Primary insomnia Persistent disorder of initiating or maintaining sleep documented in this encounter Additional Health Concerns Assessment Noted Time PHQ-9 Depression Total Score: 16 024 1:50 PM EDT documented as of this encounter Care Teams Metallurgist Helper Relationship Specialty Start Date End Date Syl Godfrey ANP [address] [place] [address] PCP - General Family Medicine 04/05/20 documented as of this encounter
--- OUTSIDE RECORDS SUMMARY | 2024-11-16 19:22 | XMS_ITS | Encounter Summary ---
Author Organization [employer] Address 75 [facility] 7t [place] [address] Care Team Providers Care Mail Messenger Contractor Name Role Phone GodfreySyl Primary Care Provider [phone] Reason for Visit * Reason Comments Med Refill Encounter Details Date Type Department Care Team ([facility] st Contact Info) Description 02/24/2024 Refill [facility] [address] [place] [address] Meghana Cloud MD [address] [place] [address] Benign essential HTN Social History Tobacco Use [...] Description 11/22/2024 2:15 PM EDT Office Visit [address] [address] Syl Godfrey ANP [address] [place] [phone] 01/31/2025 1:30 PM EDT Office Visit [facility] [address] [place] [phone] Syl Godfrey ANP [address] [place] [phone] documented as of this encounter Visit Diagnoses Diagnosis Benign essential HTN documented in this encounter Additional Health Concerns Assessment Noted Time PHQ-9 Depression Total Score: 16 024 1:50 PM EDT documented as of this encounter Care Teams Mail Messenger Contractor Relationship Specialty Start Date End Date Syl Godfrey ANP [address] [place] [phone] PCP - General Family Medicine 04/05/20 documented as of this encounter
--- OUTSIDE RECORDS SUMMARY | 2024-11-16 19:22 | XMS_ITS | Encounter Summary ---
Author Organization [employer] Address 75 [facility] 7t [place] [address] Care Team Providers Care Shank Maker Name Role Phone Syl Godfrey Primary Care Provider [phone] Encounter Details Date Type Department Care Team ([facility] st Contact Info) Description 11/15/2024 Telephone [facility] [address] [place] [address] Miranda Winkler DO [address] [place] [address] Social History Tobacco Use Types Packs/Day Years [...] encounter Miscellaneous Notes * Telephone Encounter - Mary White RN - 11/15/2024 7:22 PM EST Patient presents to walk in [place] requesting to have labs drawn that the Dr called her and told her to come for labs today. Dr Winkler called pt 11/11/2024 for a critical K+ patient was advised to [facility] ED that day and declined. Patient insistent that the lab is open she comes this [facility] thislate and has labs drawn, explained to pt that [facility] [place] 8 - 4:30 Friday through Friday. Patient denies any muscles aches, muscle twitching, shortness of breath, palpitations, advised pt to go to ED, Patient refuses to go to ED advised pt to repeat labs tomorrow documented in this encounter Plan of Treatment Upcoming Encounters Date Type Department Care Team (Late st Contact Info) Description 11/22/2024 2:15 PM EDT Office Visit [facility] [address] [place] [address] Syl Godfrey, ANP [address] [place] [address] 01/31/2025 1:30 PM EDT Office Visit [facility] [address] [place] [address] Syl Godfrey ANP [address] [place] [address] documented as of this encounter Visit Diagnoses Not on filedocumented in this encounter Additional Health Concerns Assessment Noted Time PHQ-9 Depression Total Score: 16 024 1:50 PM EDT documented as of this encounter Care Teams Shank Maker Relationship Specialty Start Date End Date Syl Godfrey ANP [address] [place] [phone] PCP - General Family Medicine 04/05/20 documented as of this encounter
--- OUTSIDE RECORDS SUMMARY | 2024-11-16 19:22 | XMS_ITS | Clinical Summary ---
Author Organization [employer] Address 75 [facility] 7t [place] [address] Care Team Providers Care Real Estate Agency Principal Name Role Phone Terese Drake REED Primary Care Provider [phone] Allergies Active Allergy Reactions Criticality Noted Date [...] chew. 30 capsule 11/11/19 25 025 Active potassium chloride CR (Klor-Con M20) 20 MEQ ER tablet Take 1 tablet (20 mEq) by mouth 2 times daily for 7 days. Do not crush or chew. 14 tablet 11/11/19 25 025 Active hydroCHLOROthi azide 12.5 [...] and [place] . Might need referral to [facility] even if Mammo and [place] [...] Encounters Date Type Department Care Team Description 11/15/2024 Telephone [facility] [address] [place] [phone] Miranda Winkler DO 11/12/2024 Patient Outreach [facility] [address] [place] [phone] Drake Gudino ANP Pre-visit Planning (Pre-visit planning - LVM ) 11/11/2024 3:40 PM EST Office Visit [facility] [address] [place] [phone] Miranda Winkler DO Acute URI (Primary Dx) 11/11/2024 Telephone [facility] [address] [place] [phone] Miranda Winkler DO AREA MECHANIC PHONE TRIAGE 11/02/2024 Refill [facility] [address] [place] [phone] Kelsie Ruiz, audio production manager pain syndrome (Primary Dx) 11/02/2024 Refill [facility] [address] [place] [phone] Kelsie Ruiz, RN 10/29/2024 1:15 PM EST Telemedicine [facility] [address] [place] [phone] Drake Gudino ANP Other fatigue (Primary Dx); Primary insomnia 10/29/2024 Refill [facility] [address] [place] [address] Drake Gudino ANP Benign essential HTN 10/29/2024 Travel 10/27/2024 Telephone [facility] [address] [place] [phone] Mariah Betancur ALEXANDRA 10/21/2024 Refill [facility] [address] [place] [address] Drake Gudino ANP Benign essential HTN 10/09/2024 Refill [facility] [address] [place] [address] Drake Gudino ANP 09/28/2024 Orders Only [facility] [address] [place] [address] Drake Gudino ANP Arthritis of right subtalar joint (Primary Dx) 09/24/2024 Telephone [facility] [address] [place] [phone] Nathan Trotter [place] November recall 09/20/2024 Refill [facility] [address] [place] [phone] Kelsie Ruiz RN 09/13/2024 Refill [facility] [address] [place] [phone] Drake Gudino ANP Benign essential HTN 09/12/2024 Refill [facility] [address] [place] [phone] Drake Gudino ANP Benign essential HTN 08/26/2024 Refill [facility] [address] [place] [phone] Drake Gudino ANP Benign essential HTN 08/26/[address] [address] Stephanie Solomon, evp operations 08/20/[address] [address] Cat Avila, ALEXANDRA Med Refill (Wegovy notification) 08/19/2024 1:00 PM EST Office Visit [facility] [address] [place] [phone] Drake Gudino ANP BMI 28.0-28.9,adult (Primary Dx); Dietary counseling; Exercise counseling; Fatigue, unspecified type; Hypertriglyceridemia; Arthritis of right subtalar joint 08/19/2024 Travel 08/19/[address] [address] Rosa Díaz [place] appt change (Received a message that pt would like to switch for a tele visit today,drake would like to see her in person today.or if she can not make it today to reschedule in person .Did try leone pt ,did not answer left a vm) 08/18/2024 Telephone [facility] 230 [place] [address] Rosa Díaz [place] chart prep from Last [...] Description 11/22/2024 2:15 PM EDT Office Visit [address] [address] Drake Gudino ANP [address] [place] [address] 01/31/2025 1:30 PM EDT Office Visit [address] [address] Drake Gudino ANP [address] [place] [address] Health Maintenance Due Date Last Done Comments [...] Td or Tdap) 05/29/2022 05/29/2012 COVID-19 Vaccine (3 - season) 2024 05/04/2021, 04/06/2021 Influenza Vaccine (#1) 2024 Depression Monitoring (PHQ-9) 02/17/2025 08/19/2024, 01/26/2024 Depression Screening 08/19/2025 08/19/2024, 01/26/20 SDOH Screening 08/19/2025 08/19/2024 Tobacco Screening 11/11/2025 11/11/2024 Mammogram 03/04/2026 03/04/2024, 02/13, 02/25/2023, Additional history exists Pap Smear 03/10/2026 03/10/2023 Cervical Cancer Screening 03/10/2028 HPV/Cotest 03/10/2028 03/10/2023, 06/27/2016 Lipid Panel 11/11/2029 11/11/2024, 02/0 02/2024, 02/21/2023, Additional history exists RSV Patients [...] PANEL Routine 11/16/2024 3:22 PM EST Hypokalemia INSULIN Routine 11/11/2024 4:06 PM EST Other [...] Recently Relevant to Health Maintenance Results * (ABNORMAL) Basic Metabolic Panel (11/16/2024 3:22 PM EST) Only the most recent of2 resultswithin the time period is included. Sodium 141 135 - 145 mmol/L [facility] Potassium 3.9 3.3 - 5.1 mmol/L [facility] Chloride 104 96 - 108 mmol/L [facility] Carbon Dioxide 29 22 - 29 mmol/L [facility] Anion Gap 12 12 - 20 [facility] Urea Nitrogen (BUN) 19(H) 9 - 16 mg/dL [facility] Creatinine, Serum 0.96 0.5 - 1.4 mg/dL [facility] Estimated Glomerular Filt Rate 60 [facility] Comment:Chronic Kidney Disea se: Estimated GFR < 60 mL/min/[id number] Kidney Disease: Estimated GFR < 15 mL/min/1.73m2 Glucose 84 60 - 115 mg/dL [facility] Calcium 9.7 8.4 - 10.2 mg/dL [facility] Blood Venous blood specimen / Unknown 11/16/2024 3:22 PM EST 11/16/2024 4:06 PM EST Miranda Winkler DO LAB BLOOD ORDERABLES Final R esult Performing Organization Address City/State/[facility] Co de Phone Number [facility] [address] [place] [phone] * TSH W/Reflex to FT4 (11/11/2024 4:06 PM EST) TSH reflex Free T4 0.66 0.32 - 4.0 uIU/mL [facility] Blood Venous blood specimen / Unknown 11/11/2024 4:06 PM EST 11/11/2024 6:11 PM EST us Drake Gudino ANP LAB BLOOD ORDERABLES Final Resul t Performing Organization Address City/State/[facility] de Phone Number [facility] [address] [place] [phone] * Insulin (11/11/2024 4:06 PM EST) Insulin 5 2 - 29 uU/mL [facility] Comment:This test was perfor med [...] ORDERABLES Final Resul t Performing Organization Address [facility] de Phone Number [facility] [address] [place] [phone] * Hemoglobin and Hematocrit (11/11/2024 4:06 PM EST) Hemoglobin 13.4 12.0 - 16.0 g/dl [facility] Hematocrit 38.9 37.0 - 47.0 % [facility] Blood Venous blood specimen / Unknown 11/11/2024 4:06 PM EST 11/11/2024 6:11 PM EST Drake Gudino ANP LAB BLOOD ORDERABLES Final Resul t Performing Organization Address [facility] de Phone Number [facility] [address] [place] [phone] * Hemoglobin A1c (11/11/2024 4:06 PM EST) Hemoglobin A1c 5.1 <6.0 % [facility] Comment:Hemoglobin A1C Refer ence Range Adults: 4.8 - 6.0 % Non diabetic: < 6.0 % Goal: < 7.0 %Additional Action Suggested: > 8.0 %Note: Hemoglobin A1c results are invalid for patients with abnormal amounts of HbF. Blood transfusions may impact the HbA1c concentration in the patient sample. Estimated Average Glucose 100 mg/dL [facility] Comment:eAG = Estimated ave rage glucose which is %A1C expressed asaverage glucose, using the formula of the M2C-ZezpawiYuwuvkp Glucose study (ADAG), Diabetes Care, Vol.31,#8,Apr. 2007 Blood Venous blood specimen / Unknown 11/11/2024 4:06 PM EST 11/11/2024 6:11 PM EST us Drake Gudino [facility] LAB BLOOD ORDERABLES Final Resul t [facility] [address] [place] [address] [phone] * (ABNORMAL) Lipid Panel, Standard (11/11/2024 4:06 PM EST) Triglycerides 108 <150 mg/dL [facility] Comment:Desirable Triglyceri de: less than 150 mg/dLBorderline High Triglyceride 150-199 mg/dLHigh Triglyceride: 200-499 mg/dLVery High Triglyceride: greater than or equal to 5OO mg/dL Cholesterol 148 <200 mg/dL [facility] Comment:Desirable Cholestero l: less than 200 mg/dLBorderline High Cholesterol: 200-239 mg/dLHigh Cholesterol: greater than 239 mg/dL LDL Cholesterol Calculated 97 <100 mg/dL [facility] Comment:Desirable LDL: less than 100 mg/dLNear Optimal/Above Optimal LDL: 110- 129 mg/dLBorderline High LDL: 130-159 mg/dLHigh LDL: 160-189 mg/dLVery High LDL: greater than or equal to 190 mg/dL HDL Cholesterol 30(L) >40 mg/dL [facility] Comment:Desirable HDL: great er than 40 mg/dL Note: This HDL assay may give artificially low results in patients with liver disease. Blood Venous blood specimen / Unknown 11/11/2024 4:06 PM EST 11/11/2024 6:11 PM EST Drake REED LAB BLOOD ORDERABLES Final Resul t Performing Organization Address [facility] Co de Phone Number [facility] [address] [place] [phone] * Influenza B (ID NOW Rapid Molecular) (11/11/2024 4:00 PM EST) Pathologist [facility] Influenza B Negative Negative, Indeterminate [facility] Swab 11/11/2024 4:00 PM EST Miranda Winkler DO POINT OF CARE TEST ENTER/CHRISTINE T ORDERABLES Final Result Performing Organization Address [facility] Phone Number [facility] [address] [place] [phone] * Influenza A (ID NOW Rapid Molecular) (11/11/2024 4:00 PM EST) [facility] Influenza A Negative Negative, Indeterminate [facility] Swab 11/11/2024 4:00 PM EST Miranda Winkler DO POINT OF CARE TEST ENTER/CHRISTINE T ORDERABLES Final Result Performing Organization Address [facility] Co de Phone Number [facility] [address] [place] [phone] * POCT Rapid COVID Ag (11/11/2024 4:00 PM EST) Pathologist [facility] Rapid COVID Ag Negative [facility] Swab 11/11/2024 4:00 PM EST Miranda Winkler DO POINT OF CARE TEST ENTER/CHRISTINE T ORDERABLES Final Result Performing Organization Address [facility] Co de Phone Number [facility] [address] [place] [phone] * POCT rapid strep A manually resulted (11/11/2024 4:00 PM EST) Rapid Strep A Screen Negative Negative, None Detected [facility] Swab 11/11/2024 4:00 PM EST us Miranda Winkler DO POINT OF CARE TEST ENTER/CHRISTINE T ORDERABLES Final Result [facility] [address] [facility] [place] [address] [phone] * BI Mammogram Screening Tomosynthesis Bilateral (03/04/2024 1:16 PM EDT) Anatomical Region Laterality Modality Breast Bilateral Mammography 03/04/2024 1:16 PM EDT Narrative 04/02/2024 1:52 PM EDT ? [facility] [place] ? [address] ?[place] [address] ? Mammography Report ? Signed ? Patient: Dilia Boateng R ?MR#: [id number] ?? [id number] ? : 1965 ?Acct:[id number] ? Age/Sex: 58 / F ?ADM Date: 06/20/24 ? Loc: HO.MAMMO ? Attending Dr: Drake Gudino BIT WELDER ? Ordering Physician: TERESE,DRAKE BIT WELDER ?Results: 2Benign Fin ?? dings ? Date of Service: 06/20/24 ?Follow Up: 1 Year From Orig ?? inal Mammogram ? Procedure(s): MM tomosynthesis screening BI ?? Accession Number(s): [id number] ? cc: TERESE,DRAKE BIT WELDER ? EXAMINATION: ?? MM SCREENING DIGITAL BREAST [...] 1347 ? DD/ 1316 ? TD/TT: ? Necktie Stitcher: ? Procedure Note Kristin, Kristina - 04/02/2024 [place] [facility] [address] [place] [address] Mammography Report Signed Patient: Crescencio Boatengelle R#: [id number] : 1965Acct:[id number] Age/Sex: 58 / FADM Date: 03/04/24 Loc: DAVON.MAMMO Attending Dr: Drake Gudino NP Ordering Physician: DRAKE GUDINO NPResults: 2Beninacho chen Date of Service: 03/04/24Follow Up: 1 Year From Orig ina Mammogram Procedure(s): MM tomosynthesis screening BI Accession Number(s): [id number] cc: DRAKE GUDINO NP EXAMINATION: MM SCREENING [...] in OV> 04/02/24 1347 DD/ 1316 TD/TT: Necktie Stitcher: Drake Gudino ANP IMG BI PROCEDURES Final Result * Image-Guided Pap with Age-Based Screening Protocols (03/10/2023 11:30 AM EDT) Comment [facility] Comment: This order for age-based cervical cancer and STI screening follows ACOG guidelines(PB 168, 140, FUK143). See individual assays for performing site location. Clinical Information: None given [facility] LMP: NONE GIVEN [facility] [place] ActionPlanner-PFI Acquisitiont Prev. PAP: NONE GIVEN [facility] [place] Pix[employer] Prev. BX: NONE GIVEN [facility] SOURCE: None given [facility] [place] [facility] Statement Of Adequacy: SATISFACTORY FOR EVALUATION [facility] [place] [employer] Interpretation/Re sult: [facility] [place] [employer] [facility] [facility] Comment: Negative for intraepithelial lesion or malignancy. Atrophic pattern; predominantly parabasal cells COMMENT: [facility] [place] [facility] Comment: This Pap test has been evaluated with computer assisted technology. Microscopic features suggestive of lubricant. Lubricant jellies may interfere with slide preparation; their use is not recommended. Assembler Faucets: [facility] [place] [employer] Comment: BK,CT(ASCP) CT screening location: [address] Review Assembler Faucets: [facility] [place] [employer] Comment: BLC,CT(ASCP) CT screening location: [address] ??[phone] (Always Message) Que [employer]af Comment: EXPLANATORY NOTE: The Pap is a [...] HPV nRNA E6/E7 Not Detected Not Detected [facility] Comment: Methodology: Account Review Specialist-Mediated Amplification This assay detects E6/E7 viral messenger RNA (mRNA) from 14 high-risk HPV types (16,18,31,33,35,39,45,51,52,56,58,59,66,68). Cervical sources are required for HPV testing. If a vaginal source from a patient who has had a total hysterectomy with removal of cervix was submitted, please contact the testing laboratory for alternative testing options. For additional information, please refer to http://education.PeopLease/faq/HSS634m8 (This link if provided for information/ educational purposes only.) Pap Vial 03/10/2023 11:3 0 AM EDT 03/11/2023 5:29 AM EDT Jocelyne Cheng [facility] LAB BLOOD ORDERABLES Melissa decker Result [facility] [address] [facility], [place] [address] [facility] [address] [place] [phone] * HIV 1/2 ANTIGEN/ANTIBODY,FOURTH GENERATION W/RFL (08/08/2020 2:28 PM EST) HIV-1/2 ANTIGEN AND ANTIBODIES, 4TH GENERATION W/ REFLEX NON-REACT [facility] NON-REACT [facility] Comment: HIV-1 antigen and HIV-1/HIV-2 [...] ? For additional information please refer to http://education.[employer]icon Technologies.Yan Engines/faq/HBN192 (This link is being provided for informational/ educational purposes only.) ? The performance of this assay has not been clinically validated in patients less than 2 years old. ?? HIV-1/2 ANTIGEN AND ANTIBODIES, 4TH GENERATION W/ REFLEX NON-REACT [facility] NON-REACT [facility] Comment: HIV-1 antigen and HIV-1/HIV-2 [...] ? For additional information please refer to http://education.[employer].Yan Engines/faq/KHB056 (This link is being provided for informational/ educational purposes only.) ? The performance of this assay has not been clinically validated in patients less than 2 years old. ?? 08/08/2020 2:28 PM EST [facility] LAB BLOOD ORDERABLES Final Resul t [facility] [address] from Last 3 Months or Most Recently Relevant to Health Maintenance Insurance [facility] C3 HSN FULL Care Teams Real Estate Agency Principal Relationship Specialty Start Date End Date Drake Gudino ANP [address] [place] [phone] PCP - General Family Medicine 04/05/20
--- OUTSIDE RECORDS SUMMARY | 2024-11-16 19:22 | XMS_ITS | Encounter Summary ---
Author Organization [employer] Address 75 [facility] 7t [place] [address] Care Team Providers Care Bomb Loader Name Role Phone Syl Godfrey Primary Care Provider [phone] Reason for Visit * Reason Onset Date Comments Med Refill 05/10/2024 Encounter Details Date Type Department Care Team ([facility] st Contact Info) Description 05/10/2024 Telephone [facility] [address] [place], [place] [phone] Syl Godfrey ANP 230 [place] [address] Med Refill Social History Tobacco Use Types [...] 5-325 MG tablet To be sent to: [facility]/pharmacy #[id number] documented in this encounter Plan of Treatment Upcoming Encounters Date Type Department Care Team (Late st Contact Info) Description 11/22/2024 2:15 PM EDT Office Visit [facility] [address] [place] [address] Syl Godfrey ANP 230 [place] [address] 01/31/2025 1:30 PM EDT Office Visit [facility] [address] [place] [address] Syl Godfrey ANP 230 [place] [address] documented as of this encounter Visit Diagnoses Not on filedocumented in this encounter Additional Health Concerns Assessment Noted Time PHQ-9 Depression Total Score: 16 024 1:50 PM EDT documented as of this encounter Care Teams Bomb Loader Relationship Specialty Start Date End Date Syl Godfrey ANP 230 [place] [address] PCP - General Family Medicine 04/05/20 documented as of this encounter
--- OUTSIDE RECORDS SUMMARY | 2024-11-16 19:22 | XMS_ITS | Encounter Summary ---
Author Organization [employer] Address 75 [facility] 7t [place] [address] Care Team Providers Care Manager Residential Name Role Phone Syl Godfrey Primary Care Provider [phone] Reason for Visit * Reason Comments Med Refill Encounter Details Date Type Department Care Team ([facility] st Contact Info) Description 09/12/2024 Refill [facility] MED[facility]INE 230 [place], [place] [phone] Syl Godfrey ANP 230 [place] [address] Benign essential HTN Social History Tobacco Use [...] Description 11/22/2024 2:15 PM EDT Office Visit [facility] MED[facility] [address] [place] [address] Syl Godfrey ANP [address] [place] [address] 01/31/2025 1:30 PM EDT Office Visit [address] [address] Syl Godfrey ANP [address] [place] [address] documented as of this encounter Visit Diagnoses Diagnosis Benign essential HTN documented in this encounter Additional Health Concerns Assessment Noted Time PHQ-9 Depression Total Score: 16 024 1:50 PM EDT documented as of this encounter Care Teams Manager Residential Relationship Specialty Start Date End Date Syl Godfrey ANP [address] [place] [address] PCP - General Family Medicine 04/05/20 documented as of this encounter
--- OUTSIDE RECORDS SUMMARY | 2024-11-16 19:22 | XMS_ITS | Encounter Summary ---
Author Organization [employer] Address [address] [facility] [address] 7t [place] [address] Care Team Providers Care Saloonkeeper Name Role Phone Bekah Syl REED Primary Care Provider [phone] Encounter Details Date Type Department Care Team [...] 11/22/2024 2:15 PM EDT Office Visit [facility] [address] [place] [address] Syl Godfrey ANP [address] [place] [address] 01/31/2025 1:30 PM EDT Office Visit [facility] MED[facility] [address] [place] [address] Syl Godfrey ANP [address] [place] [address] documented as of this encounter Visit Diagnoses Not on filedocumented in this encounter Additional Health Concerns Assessment Noted Time PHQ-9 Depression Total Score: 16 024 1:50 PM EDT documented as of this encounter Care Teams Saloonkeeper Relationship Specialty Start Date End Date Syl Godfrey ANP [address] [place] [address] PCP - General Family Medicine 04/05/20 documented as of this encounter
--- OUTSIDE RECORDS SUMMARY | 2024-11-16 19:22 | XMS_ITS | Encounter Summary ---
Author Organization [employer] Address 75 [facility] 7t [place] [address] Care Team Providers Care Asphalt Tamping Machine Operator Name Role Phone Syl Godfrey Primary Care Provider [phone] Reason for Visit * Reason Onset Date Comments Med Refill 08/04/2024 Encounter Details Date Type Department Care Team ([facility] Contact Info) Description 08/04/2024 Telephone [facility] 230 [place], [place] [phone] Syl Godfrey ANP 230 [place] [address] Med Refill Social History Tobacco Use Types [...] 300 MG tablet To be sent to: [facility]/pharmacy #[id number] documented in this encounter Plan of Treatment Upcoming Encounters Date Type Department Care Team (Late st Contact Info) Description 11/22/2024 2:15 PM EDT Office Visit [facility] MED[facility] [address] [place] [address] Syl Godfrey ANP [address] [place] [address] 01/31/2025 1:30 PM EDT Office Visit [address] [address] Syl Godfrey ANP 230 [place] [address] documented as of this encounter Visit Diagnoses Not on filedocumented in this encounter Additional Health Concerns Assessment Noted Time PHQ-9 Depression Total Score: 16 024 1:50 PM EDT documented as of this encounter Care Teams Asphalt Tamping Machine Operator Relationship Specialty Start Date End Date Syl Godfrey ANP 230 [place] [address] PCP - General Family Medicine 04/05/20 documented as of this encounter
--- OUTSIDE RECORDS SUMMARY | 2024-11-16 19:22 | XMS_ITS | Encounter Summary ---
Author Organization [employer] Address 75 [facility] 7t [place] [address] Care Team Providers Care Motel Front Desk Clerk Name Role Phone Syl Godfrey Primary Care Provider [phone] Reason for Visit * Reason Onset Date Comments Appointment Request 11/26/2023 Appointment 11/26/2023 [facility] Encounter Details Date Type Department Care Team ([facility] st Contact Info) Description 11/26/2023 Telephone [facility] 230 [place] [address] Syl Godfrey ANP 230 [place] [address] Appointment Request; [facility] Social History Tobacco Use Types Packs/Day [...] She mentioned that she gets OP through [facility] which she can talk with her Counselor to place a referral for psychiatrist due ALEXANDRA Magana will be retiring. I let her know iflynette gets a psychiatrist through [facility] will be perfect. * Telephone Encounter - Justina Swann - 11/26/2023 8:45 AM EDT Tc from pt requesting to r/s appt with alejandrina pyle. documented in this encounter Plan of Treatment Upcoming Encounters Date Type Department Care Team (Late st Contact Info) Description 11/22/2024 2:15 PM EDT Office Visit [address] [address] Syl Godfrey ANP [address] [place] [address] 01/31/2025 1:30 PM EDT Office Visit [address] [address] Syl Godfrey ANP [address] [place] [address] documented as of this encounter Visit Diagnoses Not on filedocumented in this encounter Additional Health Concerns Assessment Noted Time PHQ-9 Depression Total Score: 17 023 3:15 PM EDT documented as of this encounter Care Teams Motel Front Desk Clerk Relationship Specialty Start Date End Date Syl Godfrey ANP [address] [place] [address] PCP - General Family Medicine 04/05/20 documented as of this encounter
--- OUTSIDE RECORDS SUMMARY | 2024-11-16 19:22 | XMS_ITS | Encounter Summary ---
Author Organization [employer] Address 75 [facility] 7t [place] [address] Care Team Providers Care Dye Reel Operator Helper Name Role Phone Syl Godfrey Primary Care Provider [phone] Reason for Visit * Reason Comments Sore Throat Nasal Congestion Encounter Details Date Type Department Care Team ([facility] st Contact Info) Description 11/11/2024 3:40 PM EST Office Visit [facility] 230 [place] [address] Miranda Winkler DO 230 [place] [address] Acute URI (Primary Dx) Social History Tobacco [...] to use flonase. History provided by: Patient documentation consultant used: No Flu Symptoms Presenting symptoms: cough [...] as needed -encouraged motrin/tylenol prn -advised contact [facility] or go to ED if no [...] Description 11/22/2024 2:15 PM EDT Office Visit [facility] 230 [place] [address] Syl Godfrey ANP 230 [place] [address] 01/31/2025 1:30 PM EDT Office Visit [facility] 230 [place] [address] Syl Godfrey ANP 230 [place] [address] documented as of this encounter Procedures Procedure [...] Molecular) (11/11/2024 4:00 PM EST) Pathologist [facility] Influenza B Negative Negative, Indeterminate [facility] Swab 11/11/2024 4:00 PM EST Miranda Winkler DO POINT OF CARE TEST ENTER/CHRISTINE T ORDERABLES Final Result [facility] [address] [place] [address] [phone] * Influenza A (ID NOW Rapid Molecular) (11/11/2024 4:00 PM EST) Pathologist [facility] Influenza A Negative Negative, Indeterminate [facility] Swab 11/11/2024 4:00 PM EST Miranda Cathi DO POINT OF CARE TEST ENTER/CHRISTINE T ORDERABLES Final Result Performing Organization Address [facility] Co de Phone Number [facility] [address] [place] [phone] * POCT rapid strep A manually resulted (11/11/2024 4:00 PM EST) Rapid Strep A Screen Negative Negative, None Detected [facility] Swab 11/11/2024 4:00 PM EST Miranda Cathi DO POINT OF CARE TEST ENTER/CHRISTINE T ORDERABLES Final Result Performing Organization Address [facility] Co de Phone Number [facility] [address] [place] [phone] * POCT Rapid COVID Ag (11/11/2024 4:00 PM EST) Rapid COVID Ag Negative [facility] Swab 11/11/2024 4:00 PM EST Miranda Brownabdullahi DO POINT OF CARE TEST ENTER/CHRISTINE T ORDERABLES Final Result Performing Organization Address [facility] de Phone Number [facility] [address] [place] [phone] documented in this encounter Visit Diagnoses Diagnosis Acute URI- Primary Acute upper respiratory infections of unspecified site documented in this encounter Additional Health Concerns Assessment Noted Time PHQ-9 Depression Total Score: 16 024 1:50 PM EDT documented as of this encounter Care Teams Dye Reel Operator Helper Relationship Specialty Start Date End Date Syl Godfrey ANP [address] [place] [address] PCP - General Family Medicine 04/05/20 documented as of this encounter
--- OUTSIDE RECORDS SUMMARY | 2024-11-16 19:22 | XMS_ITS | Encounter Summary ---
Author Organization [employer] Address 75 [facility] 7t [place] [address] Care Team Providers Care Greige Goods Inspector Name Role Phone Syl Godfrey Primary Care Provider [phone] Reason for Visit * Reason Comments Pre-visit Planning Pre-visit planning - LVM Encounter Details Date Type Department Care Team ([facility] Contact Info) Description 11/12/2024 Patient Outreach [facility]INE 230 [place] [address] Syl Godfrey ANP 230 [place] [address] Pre-visit Planning (Pre-visit planning - LVM ) Social History Tobacco Use Types Packs/Day Years [...] as of this encounter Progress Notes * Pema Rollins - 11/12/2024 9:57 AM EST CC Pema Pate placed outbound call to patient to complete pre-visit planning. No answer at this time. Patient name and were not confirmed. CC left voicemail requesting return call. Direct contact information provided. documented in this encounter Plan of Treatment Upcoming Encounters Date Type Department Care Team (Late st Contact Info) Description 11/22/2024 2:15 PM EDT Office Visit [facility] MED[facility] [address] [place] [address] Syl Godfrey ANP 230 [place] [address] 01/31/2025 1:30 PM EDT Office Visit [facility] [address] [place] [address] Syl Godfrey ANP 230 [place] [address] documented as of this encounter Visit Diagnoses Not on filedocumented in this encounter Additional Health Concerns Assessment Noted Time PHQ-9 Depression Total Score: 16 024 1:50 PM EDT documented as of this encounter Care Teams Greige Goods Inspector Relationship Specialty Start Date End Date Syl Godfrey ANP 230 [place] [address] PCP - General Family Medicine 04/05/20 documented as of this encounter
--- OUTSIDE RECORDS SUMMARY | 2024-11-16 19:22 | XMS_ITS | Encounter Summary ---
Author Organization [employer] Address 75 [facility] 7t [place] [address] Care Team Providers Care Tooth Inspector Name Role Phone Syl Godfrey Primary Care Provider [phone] Reason for Visit * Reason Comments Med Refill Encounter Details Date Type Department Care Team ([facility] st Contact Info) Description 08/26/2024 Refill [facility] MED[facility]INE 230 [place], [place] [phone] Syl Godfrey ANP 230 [place] [address] Benign essential HTN Social History Tobacco Use [...] Description 11/22/2024 2:15 PM EDT Office Visit [facility] MEDICINE [address] [place] [address] Syl Godfrey ANP [address] [address] 01/31/2025 1:30 PM EDT Office Visit [address] [address] Syl Godfrey ANP [address] [place] [address] documented as of this encounter Visit Diagnoses Diagnosis Benign essential HTN documented in this encounter Additional Health Concerns Assessment Noted Time PHQ-9 Depression Total Score: 16 024 1:50 PM EDT documented as of this encounter Care Teams Tooth Inspector Relationship Specialty Start Date End Date Syl Godfrey ANP [address] [place] [address] PCP - General Family Medicine 04/05/20 documented as of this encounter
--- OUTSIDE RECORDS SUMMARY | 2024-11-16 19:23 | XMS_ITS | Encounter Summary ---
Author Organization [employer] Address 75 [facility] 7t [place] [address] Care Team Providers Care Master Fire Control Technician Name Role Phone Syl Godfrey Primary Care Provider [phone] Encounter Details Date Type Department Care Team (Late Contact Info) Description 03/05/[address] [address] Syl Godfrey ANP [address] [place] [address] Social History Tobacco Use Types Packs/Day Years [...] Description 11/22/2024 2:15 PM EDT Office Visit [facility] MEDICINE [address] [place] [address] Syl Godfrey ANP [address] [place] [address] 01/31/2025 1:30 PM EDT Office Visit [address] [address] Syl Godfrey ANP [address] [place] [address] documented as of this encounter Visit Diagnoses Not on filedocumented in this encounter Additional Health Concerns Assessment Noted Time PHQ-9 Depression Total Score: 17 023 3:15 PM EDT documented as of this encounter Care Teams Master Fire Control Technician Relationship Specialty Start Date End Date Syl Godfrey ANP [address] [place] [address] PCP - General Family Medicine 04/05/20 documented as of this encounter
--- OUTSIDE RECORDS SUMMARY | 2024-11-16 19:23 | XMS_ITS | Encounter Summary ---
Author Organization [employer] Address [address] [place] [address] 7 [place] [address] Care Team Providers Care Environmental Sciences Professor Name Role Phone Syl Godfrey Primary Care Provider [phone] Encounter Details Date Type Department Care Team (Late st Contact Info) Description 09/20/2022 Orders Only [facility] [address] [place] [address] Syl Godfrey ANP [address] [place] [address] Healthcare maintenance (Primary Dx) Social History Tobacco [...] Description 11/22/2024 2:15 PM EDT Office Visit [address] [address] Syl Godfrey ANP 230 [place] [address] 01/31/2025 1:30 PM EDT Office Visit [address] [address] Syl Godfrey ANP [address] [place] [address] documented as of this encounter Procedures Procedure Name Priority Date/Time Associated Diagnosis Comments LYME DISEASE AB W/REFL TO BLOT (IGG, IGM) Routine 01/22/2023 11:45 AM EDT Healthcare maintenance VITAMIN B12 Routine 01/22/2023 11:45 AM EDT Healthcare maintenance documented in this encounter Results * Lyme Disease Ab with Reflex to Blot (IgG, IgM) (01/22/2023 11:45 AM EDT) Lyme Antibody Screen <0.90 index [facility] Comment:Index Interpretation ----- < 0.90 Negative [...] when erythemamigrans is apparent.THIS TEST WAS PERFORMED AT:[facility] [place] [id number] BALL MD Lyme Blot [facility] 01/22/2023 11:4 5 AM EDT 01/22/2023 11:45 AM EDT us [facility] External Provider LAB BLO OD ORDERABLES Final Result [facility] [address] [place] [phone] * Vitamin B12 (01/22/2023 11:45 AM EDT) Vitamin B12 784 200 - 900 pg/mL [facility] Comment:NORMAL 200-900 PG/ML INDETERMINATE 160-199 PG/ML DEFICIENT < 160 PG/ML 01/22/2023 11:4 5 AM EDT 01/22/2023 11:45 AM EDT [facility] External Provider LAB BLO OD ORDERABLES Final Result [facility] [address] [place] [address] [phone] documented in this encounter Visit Diagnoses Diagnosis Healthcare maintenance- Primary documented in this encounter Care Teams Environmental Sciences Professor Relationship Specialty Start Date End Date Syl Godfrey ANP [address] [place] [address] PCP - General Family Medicine 04/05/20 documented as of this encounter
== END 2024-11-16 15:19 | disposition home or self-care (01) ==
LOC: HO.HHCL 15:18
PROVIDERS: Visit Provider Family Medicine
DX: E87.6 Hypokalemia (principal)
CPT/HCPCS: 36415; 80048

== ENCOUNTER 2025-01-31 14:24 | Outpatient (REF) | payer MEDICAID, SELFPAY ==
--- OUTSIDE RECORDS SUMMARY | 2025-01-31 14:31 | XMS_ITS | Encounter Summary ---
Author Organization [employer] Address 75 [facility] 7t [place] [address] Care Team Providers Care Smoke Eater Name Role Phone Syl Godfrey Primary Care Provider [phone] Reason for Visit * Reason Comments Med Refill Encounter Details Date Type Department Care Team ([facility] st Contact Info) Description 09/13/2024 Refill [facility] MED[facility]INE 230 [place] [address] Syl Godfrey ANP 230 [place] [address] Benign essential HTN Social History Tobacco Use [...] Care Team (Late st Contact Info) Description 04/25/2025 1:00 PM EDT Office Visit [facility] [address] [place] [address] TheeArabella wilcox, OD 230 [place], [place] [phone] documented as of this encounter Visit Diagnoses Diagnosis Benign essential HTN documented in this encounter Additional Health Concerns Assessment Noted Time PHQ-9 Depression Total Score: 16 024 1:50 PM EDT documented as of this encounter Care Teams Smoke Eater Relationship Specialty Start Date End Date Syl Godfrey ANP [address] [place] [address] PCP - General Family Medicine 04/05/20 documented as of this encounter
--- OUTSIDE RECORDS SUMMARY | 2025-01-31 14:31 | XMS_ITS | Encounter Summary ---
Author Organization [employer] Address 75 [facility] 7t [place] [address] Care Team Providers Care Client Evaluator Name Role Phone Syl Godfrey Primary Care Provider [phone] Reason for Visit * Reason Comments Med Refill Encounter Details Date Type Department Care Team (Late st Contact Info) Description 02/04/2023 Refill [facility] MEDICINE [address] [place] [address] Syl Godfrey ANP [address] [place] [address] Social History Tobacco Use Types Packs/Day Years [...] Encounters Date Type Department Care Team (Late Contact Info) Description 04/25/2025 1:00 PM EDT Office Visit [facility] [address] [place] [address] Arabella Kingston, OD [address] [place] [address] documented as of this encounter Visit Diagnoses Not on filedocumented in this encounter Additional Health Concerns Assessment Noted Time PHQ-9 Depression Total Score: 17 023 3:15 PM EDT documented as of this encounter Care Teams Client Evaluator Relationship Specialty Start Date End Date Sly Godfrey ANP [address] [place] [address] PCP - General Family Medicine 04/05/20 documented as of this encounter
--- OUTSIDE RECORDS SUMMARY | 2025-01-31 14:31 | XMS_ITS | Encounter Summary ---
Author Organization [employer] Address 75 [facility] 7t [place] [address] Care Team Providers Care Manager Culinary Name Role Phone Syl Godfrey Primary Care Provider [phone] Reason for Visit * Reason Onset Date Comments Med Refill 08/04/2024 Encounter Details Date Type Department Care Team ([facility] st Contact Info) Description 08/04/2024 Telephone [facility] MEDICINE 230 [place] [address] Syl Godfrey ANP [address] [place] [address] Med Refill Social History Tobacco Use Types [...] 300 MG tablet To be sent to: [facility]/pharmacy #[id number] documented in this encounter Plan of Treatment Upcoming Encounters Date Type Department Care Team (Late st Contact Info) Description 04/25/2025 1:00 PM EDT Office Visit [facility] [address] [place] [address] Arabella Kingston, OD [address] [place] [address] documented as of this encounter Visit Diagnoses Not on filedocumented in this encounter Additional Health Concerns Assessment Noted Time PHQ-9 Depression Total Score: 16 024 1:50 PM EDT documented as of this encounter Care Teams Manager Culinary Relationship Specialty Start Date End Date Syl Godfrey ANP [address] [place] [address] PCP - General Family Medicine 04/05/20 documented as of this encounter
--- OUTSIDE RECORDS SUMMARY | 2025-01-31 14:31 | XMS_ITS | Encounter Summary ---
Author Organization [employer] Address 75 [facility] 7t [place] [address] Care Team Providers Care Rock Singer Name Role Phone Syl Godfrey Primary Care Provider [phone] Reason for Visit * Reason Onset Date Comments Med Refill 08/03/2024 Encounter Details Date Type Department Care Team (Late st Contact Info) Description 08/03/2024 Refill [facility] MED[facility] [address] [place] [address] Syl Godfrey ANP [address] [place] [address] Arthritis of right subtalar joint Social History [...] Description 04/25/2025 1:00 PM EDT Office Visit [facility] OPT[facility] [address] [place] [address] Arabella Kingston, OD 230 [place] [address] documented as of this encounter Visit Diagnoses Diagnosis Arthritis of right subtalar joint documented in this encounter Additional Health Concerns Assessment Noted Time PHQ-9 Depression Total Score: 16 024 1:50 PM EDT documented as of this encounter Care Teams Rock Singer Relationship Specialty Start Date End Date Syl Godfrey ANP 230 [place] [address] PCP - General Family Medicine 04/05/20 documented as of this encounter
--- OUTSIDE RECORDS SUMMARY | 2025-01-31 14:31 | XMS_ITS | Encounter Summary ---
Author Organization [employer] Address [address] [place] [address] Care Team Providers Care Geodetic Surveyor Technologist Name Role Phone Syl Godfrey BRIANNA Primary Care Provider [phone] Encounter Details Date Type Department Care Team (Latest Contact Info) Description 01/31/2025 Travel Social History Tobacco Use Types Packs/Day [...] Description 04/25/2025 1:00 PM EDT Office Visit [facility] [address] [place] [address] Thee, Arabella, OD [address] [place] [address] documented as of this encounter Visit Diagnoses Not on filedocumented in this encounter Additional Health Concerns Assessment Noted Time PHQ-9 Depression Total Score: 16 024 1:50 PM EDT documented as of this encounter Care Teams Geodetic Surveyor Technologist Relationship Specialty Start Date End Date Syl Godfrey ANP [address] [place] [address] PCP - General Family Medicine 04/05/20 documented as of this encounter
--- OUTSIDE RECORDS SUMMARY | 2025-01-31 14:31 | XMS_ITS | Encounter Summary ---
Author Organization [employer] Address [address] [facility] 7t [place] [address] Care Team Providers Care Document Imaging Specialist Name Role Phone Syl Godfrey Primary Care Provider [phone] Reason for Visit * Reason Comments Med Refill Encounter Details Date Type Department Care Team ([facility] st Contact Info) Description 09/12/2024 Refill [facility] MEDICINE [address] [place] [address] Syl Godfrey ANP [address] [place] [address] Benign essential HTN Social History Tobacco Use [...] Description 04/25/2025 1:00 PM EDT Office Visit [facility] [address] [place] [address] TheeArabella wilcox, OD [address] [place], [place] [phone] documented as of this encounter Visit Diagnoses Diagnosis Benign essential HTN documented in this encounter Additional Health Concerns Assessment Noted Time PHQ-9 Depression Total Score: 16 024 1:50 PM EDT documented as of this encounter Care Teams Document Imaging Specialist Relationship Specialty Start Date End Date Syl Godfrey ANP [address] [place] [address] PCP - General Family Medicine 04/05/20 documented as of this encounter
--- OUTSIDE RECORDS SUMMARY | 2025-01-31 14:31 | XMS_ITS | Encounter Summary ---
Author Organization [employer] Address [address] [facility] 7t [place] [address] Care Team Providers Care Tin Roller Hot Mill Name Role Phone Syl Godfrey Primary Care Provider [phone] Reason for Visit * Reason Comments Med Refill Encounter Details Date Type Department Care Team ([facility] st Contact Info) Description 08/26/2024 Refill [facility] MED[facility]INE [address] [place] [address] Syl Godfrey ANP [address] [place] [address] Benign essential HTN Social History Tobacco Use [...] Description 04/25/2025 1:00 PM EDT Office Visit [facility] [address] [place] [address] TheeArabella wilcox, OD [address] [place], [place] [phone] documented as of this encounter Visit Diagnoses Diagnosis Benign essential HTN documented in this encounter Additional Health Concerns Assessment Noted Time PHQ-9 Depression Total Score: 16 024 1:50 PM EDT documented as of this encounter Care Teams Tin Roller Hot Mill Relationship Specialty Start Date End Date Syl Godfrey ANP [address] [place] [address] PCP - General Family Medicine 04/05/20 documented as of this encounter
--- OUTSIDE RECORDS SUMMARY | 2025-01-31 14:31 | XMS_ITS | Encounter Summary ---
Author Organization [employer] Address [address] [facility] 7t [place] [address] Care Team Providers Care Boring Machine Set Up Operator Name Role Phone Syl Godfrey Primary Care Provider [phone] Reason for Visit * Reason Comments Follow-up Encounter Details Date Type Department Care Team (Latest Contact Info) Description 01/31/2025 1:30 PM EDT Office Visit [facility] MEDICINE [address] [place] [address] Syl Godfrey ANP [address] [place] [address] Hypertriglyceridemia (Primary Dx); Benign essential HTN; Screening for colorectal cancer; Bipolar 2 disorder (CMS/HCC); Routine physical examination; Screening for colon cancer; Flushing reaction; Dietary counseling; Exercise counseling Social History Tobacco Use Types Packs/Day Years [...] the past 12 months, has t he [employer] gas, oil or water company threatened to [...] Sign Reading Time Taken Comments Blood Pressure 110/67 01/31/2025 1:48 PM EDT Pulse 54 01/31/2025 1:48 PM EDT Temperature - - Respiratory Rate 20 01/31/2025 1:48 PM EDT Oxygen Saturation - - Inhaled Oxygen Concentration - - Weight 69.9 kg (154 lb) 01/31/2025 1:48 PM EDT Height 167 cm (5' 5.75 ) 01/31/2025 1:48 PM EDT Body Mass Index 25.05 01/31/2025 1:48 PM EDT documented in this encounter Plan of Treatment Upcoming Encounters Date Type Department Care Team (Late st Contact Info) Description 04/25/2025 1:00 PM EDT Office Visit [facility] [address] [place], [place] [phone] Arabella Kingston, OD [address] [place] [address] Scheduled Orders Name Type Priority Associated Diagnoses Orde r Schedule Cologuard?? colon cancer screening Lab Routine Screening for colon cancer Ordered: 01/31/2025 documented as of this encounter Visit Diagnoses Diagnosis Hypertriglyceridemia- Primary Pure hyperglyceridemia Benign essential HTN Screening for colorectal cancer Bipolar 2 disorder (CMS/HCC) Other bipolar disorders Routine physical examination Routine general medical examination at a health care facility Screening for colon cancer Special screening for malignant neoplasms, colon Flushing reaction Flushing Dietary counseling Dietary surveillance and counseling Exercise counseling documented in this encounter Additional Health Concerns Assessment Noted Time PHQ-9 Depression Total Score: 16 024 1:50 PM EDT documented as of this encounter Care Teams Boring Machine Set Up Operator Relationship Specialty Start Date End Date Syl Godfrey ANP [address] [place] [id number] PCP - General Family Medicine 04/05/20 documented as of this encounter
--- OUTSIDE RECORDS SUMMARY | 2025-01-31 14:32 | XMS_ITS | Encounter Summary ---
Author Organization [employer] Address [address] [facility] 7t [place] [address] Care Team Providers Care Merchandise Stocker Name Role Phone Syl Godfrey Primary Care Provider [phone] Reason for Visit * Reason Onset Date Comments CHART PREP 01/28/2025 Encounter Details Date Type Department Care Team ([facility] st Contact Info) Description 01/28/2025 Telephone [facility] [address] [place] [address] Syl Godfrey ANP [address] [place] [address] CHART PREP Social History Tobacco Use Types Packs/Day Years [...] encounter Miscellaneous Notes * Telephone Encounter - Nathan Trotter [place] - 01/28/2025 1:23 PM EDT Chart Prep Labs: not done from 11/29/24 t/c to pt for lab reminder Images: done mammo 03/04/24 Referrals: not applicable Vaccines due: Hep B and Zoster Screenings: colonoscopy Overdue care gaps: SBIRT, Oral health screening, and Disability screen documented in this encounter Plan of Treatment Upcoming Encounters Date Type Department Care Team (Late st Contact Info) Description 04/25/2025 1:00 PM EDT Office Visit [facility] [address] [place] [address] Arabella Kingston, OD [address] [place] [address] documented as of this encounter Visit Diagnoses Not on filedocumented in this encounter Additional Health Concerns Assessment Noted Time PHQ-9 Depression Total Score: 16 024 1:50 PM EDT documented as of this encounter Care Teams Merchandise Stocker Relationship Specialty Start Date End Date Syl Godfrey ANP [address] [place] [address] PCP - General Family Medicine 04/05/20 documented as of this encounter
--- OUTSIDE RECORDS SUMMARY | 2025-01-31 14:32 | XMS_ITS | Encounter Summary ---
Author Organization [employer] Address [address] [facility] 7t [place] [address] Care Team Providers Care Executive Sous Chef Name Role Phone Syl Godfrey Primary Care Provider [phone] Reason for Visit * Reason Onset Date Comments Med Refill 12/29/2024 Encounter Details Date Type Department Care Team (Late st Contact Info) Description 12/29/2024 Refill [facility] MEDICINE [address] [place] [address] Syl Godfrey ANP [address] [place] [address] Hypertriglyceridemia Social History Tobacco Use Types Packs/Day Years [...] Description 04/25/2025 1:00 PM EDT Office Visit [facility] OPT[facility] [address] [place] [address] Arabella Kingston, MACHELLE [address] [place] [address] documented as of this encounter Visit Diagnoses Diagnosis Hypertriglyceridemia Pure hyperglyceridemia documented in this encounter Additional Health Concerns Assessment Noted Time PHQ-9 Depression Total Score: 16 024 1:50 PM EDT documented as of this encounter Care Teams Executive Sous Chef Relationship Specialty Start Date End Date Syl Godfrey ANP [address] [place] [address] PCP - General Family Medicine 04/05/20 documented as of this encounter
--- OUTSIDE RECORDS SUMMARY | 2025-01-31 14:32 | XMS_ITS | Encounter Summary ---
Author Organization [employer] Address [address] [place] [address] [address] [place] [address] Care Team Providers Care Vitreo Retinal Surgeon Name Role Phone Syl Godfrey Primary Care Provider [phone] Reason for Visit * Reason Onset Date Comments Referral 09/18/2022 Encounter Details Date Type Department Care Team (Late st Contact Info) Description 09/18/2022 Telephone [facility] MEDICINE [address] [place] [address] Syl Godfrey ANP [address] [place] [address] Referral Social History Tobacco Use Types Packs/Day [...] a referral to are eye clinic here ([facility]) . documented in this encounter Plan of Treatment Upcoming Encounters Date Type Department Care Team (Late st Contact Info) Description 04/25/2025 1:00 PM EDT Office Visit [facility] OPTOMETRY [address] [place] [address] Arabella Kingston, OD [address] [place] [address] documented as of this encounter Visit Diagnoses Not on filedocumented in this encounter Care Teams Vitreo Retinal Surgeon Relationship Specialty Start Date End Date Syl Godfrey ANP [address] [place] [address] PCP - General Family Medicine 04/05/20 documented as of this encounter
--- OUTSIDE RECORDS SUMMARY | 2025-01-31 14:32 | XMS_ITS | Encounter Summary ---
Author Organization [employer] Address [address] [place] [address] Care Team Providers Care Magazine Journalist Name Role Phone Syl Godfrey BRIANNA Primary Care Provider Encounter Details Date Type Department Care Team (Latest Contact Info) Description 01/30/2025 Travel Social History Tobacco Use Types Packs/Day [...] Description 04/25/2025 1:00 PM EDT Office Visit [facility] OPT[facility]ET[facility] [address] [place] [address] Thee, Arabella, OD [address] [place] [address] documented as of this encounter Visit Diagnoses Not on filedocumented in this encounter Additional Health Concerns Assessment Noted Time PHQ-9 Depression Total Score: 16 024 1:50 PM EDT documented as of this encounter Care Teams Magazine Journalist Relationship Specialty Start Date End Date Syl Godfrey ANP [address] [place] [address] PCP - General Family Medicine 04/05/20 documented as of this encounter
--- OUTSIDE RECORDS SUMMARY | 2025-01-31 14:32 | XMS_ITS | Encounter Summary ---
Author Organization [employer] Address [address] [facility] 7t [place] [address] Care Team Providers Care Consumer Lending Manager Name Role Phone Bekah Syl REED Primary Care Provider [phone] Reason for Visit * Reason Comments Med Refill Encounter Details Date Type Department Care Team ([facility] st Contact Info) Description 02/24/2024 Refill [facility] MEDICINE [address] [place] [address] Meghana Cloud MD [address] [place] [address] Benign essential HTN Social History Tobacco Use [...] Description 04/25/2025 1:00 PM EDT Office Visit [facility] OPTOMETRY [address] [place], [place] [phone] TheeArabella wilcox, OD [address] [place] [address] documented as of this encounter Visit Diagnoses Diagnosis Benign essential HTN documented in this encounter Additional Health Concerns Assessment Noted Time PHQ-9 Depression Total Score: 16 024 1:50 PM EDT documented as of this encounter Care Teams Consumer Lending Manager Relationship Specialty Start Date End Date Syl Godfrey ANP [address] [place] [address] PCP - General Family Medicine 04/05/20 documented as of this encounter
--- OUTSIDE RECORDS SUMMARY | 2025-01-31 14:32 | XMS_ITS | Clinical Summary ---
Author Organization [employer] Address [address] [facility] [address] [place] [address] Care Team Providers Care Merchandise Flow Associate Name Role Phone Terese Drake REED Primary Care Provider [phone] Allergies Active Allergy Reactions Criticality Noted Date Comments Aspirin 05/29/2012 Other reaction(s): GI upset Cephalexin 05/29/2012 Lamotrigine Rash Low 06/11/2018 Other reaction(s): Rash Medications * This document contains information received from the source organization and may not represent a complete record from that organization. cetirizine (ZyrTEC) 10 MG tablet TAKE 1 TABLET BY MOUTH EVERY DAY NEEDED FOR FOR ALLERGY 90 tablet 3 02/16/20 24 Active ibuprofen 800 MG tabletIndicati ons:Other chronic pain TAKE 1 TABLET BY MOUTH 3 TIMES DAILY. 60 tablet 1 04/30/20 24 Active atorvastatin (Lipitor) 40 MG tabletIndicati ons:Hypertrigl yceridemia TAKE 1 TABLET BY MOUTH EVERY DAY 90 tablet 3 05/27/20 24 Active hydroCHLOROthi azide 12.5 MG tabletIndicati ons:Benign essential HTN TAKE 1 TABLET BY MOUTH EVERY DAY 90 tablet 10/21/19 25 Active Multiple Vitamin (multivitamin) tablet TAKE 1 TABLET BY MOUTH EVERYDAY IN THE MORNING 90 tablet 1 12/11/19 25 Active buPROPion XL (Wellbutrin XL) 300 MG 24 hr tabletIndicati ons:Bipolar 2 disorder (CMS/HCC) Take 1 tablet (300 mg) by mouth in the morning. 90 tablet 1 12/30/19 25 Active melatonin 5 MG tabletIndicati ons:Primary insomnia TAKE 1 TABLET BY MOUTH AT BEDTIME NEEDED FOR INSOMNIA 30 tablet 5 12/30/19 25 Active traZODone (Desyrel) 300 MG tablet Take 300 mg by mouth at bedtime. Active omega-3 acid ethyl esters (Lovaza) 1 g capsuleIndicat ions:Hypertrig lyceridemia Take 1 capsule (1 g) by mouth 2 times daily. 60 capsule 11 02/01/20 25 026 Active omega-3 acid ethyl esters (Lovaza) 1 g capsuleIndicat ions:Hypertrig lyceridemia Take 1 capsule (1 g) by mouth 2 times daily. 60 capsule 11 01/26/20 24 025 Discontinued(Re order (will not trigger notification to Pharmacy)) traZODone (Desyrel) 150 MG tabletIndicati ons:Primary insomnia TAKE 1 TABLET BY MOUTH EVERYDAY AT BEDTIME 30 tablet 2 11/30/19 25 025 Discontinued(Do se adjustment) Tirzepatide-We ight Management (Zepbound) 2.5 MG/0.5ML solution auto-injectorI ndications:BMI 24.0-24.9, adult,History of obesity Inject 0.5 mL (2.5 mg) under the skin 1 (one) time per week. 2 mL 12/08/19 25 025 Discontinued(Th erapy completed) QUEtiapine (SEROquel) 300 MG tablet TAKE 1 TABLET BY MOUTH EVERYDAY AT BEDTIME 90 tablet 12/24/19 25 025 Discontinued( erapy completed) oxyCODONE-acet aminophen (Percocet) 7.5-325 MG tabletIndicati ons:Other chronic pain Take 1 tablet by mouth every 6 (six) hours if needed for severe pain for up to 5 days. 15 tablet 01/11/20 25 025 Active Problems Problem Noted Date Diagnosed Date Benign essential HTN 03/04/2023 Routine physical examination 02/18/2023 Assessment & Plan (02/18/2023 11:13 AM EDT): Physical exam normal aside from a palpable mass left breast. No evidence of infection. Plan: Diagnostic mammogram and U/S . Might need referral to [facility] even [...] Transient cerebral ischemia 01/12/2018 Allergic rhinitis 04/14/2015 Hypertriglyceridemia 11/10/2013 Bipolar 2 disorder 09/21/2013 [...] 09/21/2013 Heel pain 09/21/2013 Idiopathic urticaria 09/21/2013 Cyst of thyroid 01/21/2013 Insomnia 01/21/2013 Resolved Problems Problem Noted Date Diagnosed Date Resolved Date Anxiety 04/14/2015 11/29/2024 Diarrhea 09/21/2013 11/29/2024 Encounters * This document contains information received from the source organization and may not represent a complete record from that organization. Date Type Department Care Team Description 01/31/2025 1:30 PM EDT Office Visit [facility] [address] [place] [address] Drake Gudino ANP Hypertriglyceridemia (Primary Dx); Benign essential HTN; Screening for colorectal cancer; Bipolar 2 disorder (CMS/HCC); Routine physical examination; Screening for colon cancer; Flushing reaction; Dietary counseling; Exercise counseling 01/31/2025 Travel 01/30/2025 Travel 01/28/2025 Telephone [facility] [address] [place] [address] Drake Gudino ANP CHART PREP 01/24/2025 Patient Outreach [facility] [address] [place] [address] Drake Gudino ANP Pre-visit Planning ([facility] unable to reach [facility]) 01/17/2025 Orders Only [facility] [address] [place] [address] Drake Gudino ANP Bipolar 2 disorder (CMS/HCC) (Primary Dx); Primary insomnia 01/10/2025 Refill [facility] [address] [place] [address] Alanis Agrawal RN Other chronic pain (Primary Dx) 12/29/2024 Refill [facility] [address] [place] [address] Drake Gudino ANP 12/29/2024 Refill [facility] [address] [place] [address] Drake Gudino ANP Hypertriglyceridemia 12/29/2024 Refill [facility] [address] [place] [address] Drake Gudino ANP Bipolar 2 disorder (CMS/HCC); Primary insomnia 12/29/2024 Refill [facility] [address] [place] [address] Drake Gudino ANP 12/29/2024 Refill [facility] [address] [place] [address] Drake Gudino ANP Primary insomnia 12/29/2024 Refill [facility] [address] [place] [address] Drake Gudino ANP Primary insomnia 12/29/2024 Refill [facility] [address] [place] [address] Michelle Chapman MD 12/27/2024 Orders Only [facility] [address] [place] [address] Drake Gudnio ANP Unspecified skin changes (Primary Dx) 12/23/2024 Refill [facility] [address] [place] [address] Drake Gudino ANP 12/13/2024 Orders Only [facility] [address] [facility] [place] [address] Drake Gudino ANP 12/10/2024 Refill [facility] [place] [address] Drake Gudino ANP 12/09/2024 Telephone [facility] [place] [address] Drake Gudino ANP Medication Question 12/07/2024 2:00 PM EDT Clinical Support [facility] [place] [address] Love Moody RN Change in weight 12/07/2024 Travel 12/02/2024 Refill [facility] [address] [place] [address] Alanis Agrawal, ALEXANDRA Arthritis of right subtalar joint (Primary Dx) 11/29/2024 1:00 PM EDT Telemedicine [facility] [place] [address] Drake Gudino ANP Hypokalemia (Primary Dx); Primary insomnia; BMI 24.0-24.9, adult; History of obesity 11/29/2024 Travel 11/28/2024 Travel 11/26/2024 Population Health Risk Score [facility] ([facility] Department [address] [place] [phone] Provider, Population Health Generic 11/22/2024 Travel 11/22/2024 Telephone [facility] [place] [address] Drake Gudino ANP Chart Prep 11/19/2024 Orders Only [facility] [address] [facility] [place] [address] Drake Gudino ANP 2024 Refill [facility] [address] [facility] [place] [address] Drake Gudino ANP Primary insomnia 11/15/2024 Telephone [facility] [address] [place] [address] Miranda Winkler DO 11/12/2024 Patient Outreach [facility] [address] [place] [address] Drake Gudino ANP Pre-visit Planning (Pre-visit planning - LVM ) 11/11/2024 3:40 PM EST Office Visit [facility] [address] [place] [address] Miranda Winkler DO Acute URI (Primary Dx) 11/11/2024 Telephone [facility] [address] [place] [address] Miranda Winkler DO [facility] COOK PHONE TRIAGE from Last 3 Months Immunizations Immunization Administration Dates Next Due Moderna Covid-19 Vaccine [...] Pulse 54 01/31/2025 1:48 PM EDT Temperature 36.8 ??C (98.2 ??F) 11/11/2024 3:36 PM ES T Respiratory Rate 20 01/31/2025 1:48 PM EDT Oxygen Saturation 97% 11/11/2024 3:36 PM EST Inhaled Oxygen Concentration - - Weight 69.9 kg (154 lb) 01/31/2025 1:48 PM EDT Height 167 cm (5' 5.75 ) 01/31/2025 1:48 PM EDT Body Mass Index 25.05 01/31/2025 1:48 PM EDT Plan of Treatment Upcoming Encounters Date Type Department Care Team (Late st Contact Info) Description 04/25/2025 1:00 PM EDT Office Visit [facility] [address] [place] [address] Thee, Arabella, OD [address] [place], [place] [phone] Health Maintenance Due Date Last Done Comments CT Colonography 1965 Colonoscopy 1965 Colorectal Cancer Screening 1965 FIT DNA/Cologuard 1965 FIT 1965 FOBT 1965 Sigmoidoscopy 1965 Hepatitis C Screening 11/18/1983 Hepatitis B Vaccines (1 of 3 - 19+ 3-dose series) 1984 Pneumococcal Vaccine: 50+ Years (1 of 1 - PCV) 11/18/2015 Zoster Vaccines (1 of 2) 11/18/2015 COVID-19 Vaccine (3 - 2023- season) 2024 05/04/2021, 04/06/2021 Influenza Vaccine (#1) 2024 Depression Screening 08/19/2025 08/19/2024, 01/26/20 24 SDOH Screening 08/19/2025 08/19/2024 Alcohol/Substance Use Screening 01/31/2026 01/31/2025 DTaP/Tdap/Td Vaccines (2 - Td or Tdap) 01/31/2026 05/29/2012 Postponed from 05/29/2022 (Patient Refused) Disability Screening 01/31/2026 01/31/2025 Tobacco Screening 01/31/2026 01/31/2025 Mammogram 03/04/2026 03/04/2024, 02/13, 02/25/2023, Additional history [...] patient's age to complete this topic Meningococcal B Vaccine Aged Out No l onger eligible based on patient's age to complete [...] included. Sodium 141 135 - 145 mmol/L [facility] Potassium 3.9 3.3 - 5.1 mmol/L [facility] Chloride 104 96 - 108 mmol/L [facility] Carbon Dioxide 29 22 - 29 mmol/L [facility] Anion Gap 12 12 - 20 [facility] Urea Nitrogen (BUN) 19(H) 9 - 16 mg/dL [facility] Creatinine, Serum 0.96 0.5 - 1.4 mg/dL [facility] Estimated Glomerular Filt Rate 60 [facility] Comment:Chronic Kidney Disea se: Estimated GFR < 60 mL/min/1.97h0Vswpoe Kidney Disease: Estimated GFR < 15 mL/min/1.73m2 Glucose 84 60 - 115 mg/dL [facility] Calcium 9.7 8.4 - 10.2 mg/dL [facility] Blood Venous blood specimen / Unknown 11/16/2024 3:22 PM EST 11/16/2024 4:06 PM EST us Miranda Winkler DO LAB BLOOD ORDERABLES Final R esult [facility] [address] [place] [address] [phone] * TSH W/Reflex to FT4 (11/11/2024 4:06 PM EST) TSH reflex Free T4 0.66 0.32 - 4.0 uIU/mL [facility] Blood Venous blood specimen / Unknown 11/11/2024 4:06 PM EST 11/11/2024 6:11 PM EST Drake Gudino [facility] LAB BLOOD ORDERABLES Final Resul t Performing Organization Address [facility] Co de Phone Number [facility] [address] [place] [phone] * Insulin (11/11/2024 4:06 PM EST) Insulin 5 2 - 29 uU/mL [facility] Comment:This test was perfor med using the Nimbula chemiluminescentmethod. Values obtained from different assay methods cannot beused interchangeably. This insulin assay shows a possiblecross-reactivity with antibodies generated against insulin(immunoreactive insulin and some patients treated withbovine or porcine insulin). Insulin levels may be measuredlower in patients with insulin autoimmune syndrome orfamilial high pro-insulinemia. Blood Venous blood specimen / Unknown 11/11/2024 4:06 PM EST 11/11/2024 6:11 PM EST Drake Gudino [facility] LAB BLOOD ORDERABLES Final Resul t Performing Organization Address [facility] de Phone Number [facility] [address] [place] [phone] * Hemoglobin and Hematocrit (11/11/2024 4:06 PM EST) Hemoglobin 13.4 12.0 - 16.0 g/dl [facility] Hematocrit 38.9 37.0 - 47.0 % [facility] Blood Venous blood specimen / Unknown 11/11/2024 4:06 PM EST 11/11/2024 6:11 PM EST Drake Gudino [facility] LAB BLOOD ORDERABLES Final Resul t Performing Organization Address [facility] Co de Phone Number [facility] [address] [place] [phone] * Hemoglobin A1c (11/11/2024 4:06 PM EST) Hemoglobin A1c 5.1 <6.0 % [facility] Comment:Hemoglobin A1C Refer ence Range Adults: 4.8 - 6.0 % Non diabetic: < 6.0 % Goal: < 7.0 %Additional Action Suggested: > 8.0 %Note: Hemoglobin A1c results are invalid for patients with abnormal amounts of HbF. Blood transfusions may impact the HbA1c concentration in the patient sample. Estimated Average Glucose 100 mg/dL [facility] Comment:eAG = Estimated ave rage glucose which is %A1C expressed asaverage glucose, using the formula of the H1N-ZpcuxugBkbyxsr Glucose study (ADAG), Diabetes Care, Vol.31,#8,Apr. 2007 Blood Venous blood specimen / Unknown 11/11/2024 4:06 PM EST 11/11/2024 6:11 PM EST Drake Gudino [facility] LAB BLOOD ORDERABLES Final Resul t [facility] [address] [place] [address] [phone] * (ABNORMAL) Lipid Panel, Standard (11/11/2024 4:06 PM EST) Triglycerides 108 <150 mg/dL [facility] Comment:Desirable Triglyceri de: less than 150 mg/dLBorderline High Triglyceride 150-199 mg/dLHigh Triglyceride: 200-499 mg/dLVery High Triglyceride: greater than or equal to 5OO mg/dL Cholesterol 148 <200 mg/dL [facility] Comment:Desirable Cholestero l: less than 200 mg/dLBorderline High Cholesterol: 200-239 mg/dLHigh Cholesterol: greater than 239 mg/dL LDL Cholesterol Calculated 97 <100 mg/dL [facility] Comment:Desirable LDL: less than 100 mg/dLNear Optimal/Above Optimal LDL: 110- 129 mg/dLBorderline High LDL: 130-159 mg/dLHigh LDL: 160-189 mg/dLVery High LDL: greater than or equal to 190 mg/dL HDL Cholesterol 30(L) >40 mg/dL [facility] Comment:Desirable HDL: great er than 40 mg/dL Note: This HDL assay may give artificially low results in patients with liver disease. Blood Venous blood specimen / Unknown 11/11/2024 4:06 PM EST 11/11/2024 6:11 PM EST Drake REED LAB BLOOD ORDERABLES Final Resul t Performing Organization Address [facility]/ZIP Co de Phone Number [facility] [address] [place] [phone] * Influenza B (ID NOW Rapid Molecular) (11/11/2024 4:00 PM EST) [facility] Influenza B Negative Negative, Indeterminate [facility] Swab 11/11/2024 4:00 PM EST Miranda Winkler DO POINT OF CARE TEST ENTER/CHRISTINE T ORDERABLES Final Result Performing Organization Address [facility] Co de Phone Number [facility] [address] [place] [phone] * Influenza A (ID NOW Rapid Molecular) (11/11/2024 4:00 PM EST) [facility] Influenza A Negative Negative, Indeterminate [facility] Swab 11/11/2024 4:00 PM EST Miranda Winkler DO POINT OF CARE TEST ENTER/CHRISTINE T ORDERABLES Final Result Performing Organization Address [facility] Co de Phone Number [facility] [address] [place] [phone] * POCT Rapid COVID Ag (11/11/2024 4:00 PM EST) [facility] Rapid COVID Ag Negative [facility] Swab 11/11/2024 4:00 PM EST Mirnada Winkler DO POINT OF CARE TEST ENTER/CHRISTINE T ORDERABLES Final Result Performing Organization Address [facility] Co de Phone Number [facility] [address] [place] [address] [phone] * POCT rapid strep A manually resulted (11/11/2024 4:00 PM EST) Rapid Strep A Screen Negative Negative, None Detected [facility] Swab 11/11/2024 4:00 PM EST Miranda Odenmatthew DO POINT OF CARE TEST ENTER/CHRISTINE T ORDERABLES Final Result Performing Organization Address [facility] de Phone Number [facility] [address] [place] [address] [phone] * BI Mammogram Screening Tomosynthesis Bilateral (03/04/2024 1:16 PM EDT) Anatomical Region Laterality Modality Breast Bilateral Mammography 03/04/2024 1:16 PM EDT Narrative 04/02/2024 1:52 PM EDT ? [facility] ? [address] ?[place] [address] ? Mammography Report ? Signed ? Patient: Dilia Boateng R ?MR#: [id number] ?? [id number] ? : 1965 ?Acct:[id number] ? Age/Sex: 58 / F ?ADM Date: 06/20/24 ? Loc: HO.MAMMO ? Attending : Drake Gudino GREASE BUFFER ? Ordering Physician: DRAKE GUDINO NP ?Results: 2Benign Fin ?? dings ? Date of Service: 03/04/24 ?Follow Up: 1 Year From Orig ?? inal Mammogram ? Procedure(s): MM tomosynthesis screening BI ?? Accession Number(s): [id number] ? cc: TERESE,DRAKE GREASE BUFFER ? EXAMINATION: ?? MM SCREENING DIGITAL BREAST [...] 1347 ? DD/ 1316 ? TD/TT: ? Distributor Advertising Material: ? Procedure Note Kristin, Image - [facility]19/20[facility] [address] [place] [address] Mammography Report Signed Patient: Dilia Boateng RMR#: [id number] : 1965Acct:[id number] Age/Sex: 58 / FADM Date: 03/04/24 Loc: HO.MAMMO Attending Dr: Drake Gudino GREASE BUFFER Ordering Physician: DRAKE GUDINO NPResults: 2Benign Bruno chen Date of Service: 03/04/24Follow Up: 1 Year From Orig inal Mammogram Procedure(s): MM tomosynthesis screening BI Accession Number(s): [id number] cc: DRAKE GUDINO NP EXAMINATION: MM SCREENING [...] in OV> 04/02/24 1347 DD/ 1316 TD/TT: Distributor Advertising Material: Drake Gudino ANP IMG BI PROCEDURES Final Result * Image-Guided Pap with Age-Based Screening Protocols (03/10/2023 11:30 AM EDT) Comment [facility] Comment: This order for age-based cervical cancer and STI screening follows ACOG guidelines(PB 168, 140, FJN297). See individual assays for performing site location. Clinical Information: None given Biophytist LMP: NONE GIVEN Biophytist Prev. PAP: NONE GIVEN Biophytist Prev. BX: NONE GIVEN Biophytist SOURCE: None given [facility]oph[employer]ist Statement Of Adequacy: SATISFACTORY FOR EVALUATION [facility] Interpretation/Re sult: [facility] Comment: Negative for intraepithelial lesion or malignancy. Atrophic pattern; predominantly parabasal cells COMMENT: [facility] Comment: This Pap test has been evaluated with computer assisted technology. Microscopic features suggestive of lubricant. Lubricant jellies may interfere with slide preparation; their use is not recommended. Lead Tinner: [facility] Comment: BK,CT(ASCP) CT screening location: [address] Review Lead Tinner: [facility] Comment: BLC,CT(ASCP) CT screening location: [address] ??[phone] (Always Message) [facility] Comment: EXPLANATORY NOTE: The Pap is a [...] HPV nRNA E6/E7 Not Detected Not Detected [facility] Comment: Methodology: Gasser Machine Operator-Mediated Amplification This assay detects E6/E7 viral messenger RNA (mRNA) from 14 high-risk HPV types (16,18,31,33,35,39,45,51,52,56,58,59,66,68). Cervical sources are required for HPV testing. If a vaginal source from a patient who has had a total hysterectomy with removal of cervix was submitted, please contact the testing laboratory for alternative testing options. For additional information, please refer to http://[employer].Comfy/faq/XHK379j5 (This link if provided for information/ educational purposes only.) Pap Vial 03/10/2023 11:3 0 AM EDT 03/11/2023 5:29 AM EDT Jocelyne Cheng [facility] LAB BLOOD ORDERABLES Melissa brianne Result [facility] [address], [place] [address] [facility] [address] [place] [phone] * HIV 1/2 ANTIGEN/ANTIBODY,FOURTH GENERATION W/RFL (08/08/2020 [...] ? For additional information please refer to http://[employer]Comfy/faq/MYV558 (This link is being provided for informational/ [...] ? For additional information please refer to http://[employer]Comfy/faq/OMU613 (This link is being provided for informational/ educational purposes only.) ? The performance of this assay has not been clinically validated in patients less than 2 years old. ?? 08/08/2020 2:28 PM EST Drake [facility] LAB BLOOD ORDERABLES Final Resul t [facility] [address] from Last 3 Months or Most Recently Relevant to Health Maintenance Insurance [facility] Care Teams Merchandise Flow Associate Relationship Specialty Start Date End Date Drake Gudino ANP [address] [place], [place] [phone] PCP - General Family Medicine 04/05/20
--- OUTSIDE RECORDS SUMMARY | 2025-01-31 14:32 | XMS_ITS | Encounter Summary ---
Author Organization [employer] Address [address] [facility] [address] [place] [address] Care Team Providers Care Sandblast Carver Name Role Phone Syl Godfrey Primary Care Provider [phone] Reason for Visit * Reason Onset Date Comments Med Refill 12/29/2024 Encounter Details Date Type Department Care Team (Late st Contact Info) Description 12/29/2024 Refill [facility] [address] [place] [address] Syl Godfrey ANP [address] [place] [address] Primary insomnia Social History Tobacco Use Types [...] Description 04/25/2025 1:00 PM EDT Office Visit [facility] OPTOMETRY [address] [place] [address] Arabella Kingston, MACHELLE [address] [place] [address] documented as of this encounter Visit Diagnoses Diagnosis Primary insomnia Persistent disorder of initiating or maintaining sleep documented in this encounter Additional Health Concerns Assessment Noted Time PHQ-9 Depression Total Score: 16 024 1:50 PM EDT documented as of this encounter Care Teams Sandblast Carver Relationship Specialty Start Date End Date Syl Godfrey ANP [address] [place] [address] PCP - General Family Medicine 04/05/20 documented as of this encounter
--- OUTSIDE RECORDS SUMMARY | 2025-01-31 14:32 | XMS_ITS | Encounter Summary ---
Author Organization [employer] Address [address] [facility] [address]t [place] [address] Care Team Providers Care Gun Examiner Name Role Phone Syl Godfrey Primary Care Provider [phone] Reason for Visit * Reason Onset Date Comments Appointment Request 11/26/2023 Appointment 11/26/2023 [facility] Encounter Details Date Type Department Care Team ([facility] st Contact Info) Description 11/26/2023 Telephone [facility] [address] [place] [address] Syl Godfrey ANP [address] [place] [address] App[facility]; [facility] Social History Tobacco Use Types [...] She mentioned that she gets OP through [facility] which she can talk with her Counselor to place a referral for psychiatrist due ALEXANDRA Magana will be retiring. I let her know ifshe gets a psychiatrist through [facility] will be perfect. * Telephone Encounter - Justina Swann - 11/26/2023 8:45 AM EDT Tc from pt requesting to r/s appt with alejandrina pyle. documented in this encounter Plan of Treatment Upcoming Encounters Date Type Department Care Team (Late st Contact Info) Description 04/25/2025 1:00 PM EDT Office Visit [facility] OPTOMETRY [address] [place] [address] Arabella Kingston OD [address] [place] [address] documented as of this encounter Visit Diagnoses Not on filedocumented in this encounter Additional Health Concerns Assessment Noted Time PHQ-9 Depression Total Score: 17 023 3:15 PM EDT documented as of this encounter Care Teams Gun Examiner Relationship Specialty Start Date End Date Syl Godfrey ANP [address] [place] [address] PCP - General Family Medicine 04/05/20 documented as of this encounter
--- OUTSIDE RECORDS SUMMARY | 2025-01-31 14:32 | XMS_ITS | Encounter Summary ---
Author Organization [employer] Address 75 [facility] 7t [place] [address] Care Team Providers Care Retoucher Name Role Phone Syl Godfrey Primary Care Provider Reason for Visit * Reason Onset Date Comments Med Refill 12/29/2024 Encounter Details Date Type Department Care Team (Late st Contact Info) Description 12/29/2024 Refill [facility] MEDICINE [address] [place] [address] Syl Godfrey ANP 230 [place] [address] Primary insomnia Social History Tobacco Use Types [...] Description 04/25/2025 1:00 PM EDT Office Visit [facility] OPTOMETRY [address] [place] [address] Arabella Kingston, MACHELLE 230 [place] [address] documented as of this encounter Visit Diagnoses Diagnosis Primary insomnia Persistent disorder of initiating or maintaining sleep documented in this encounter Additional Health Concerns Assessment Noted Time PHQ-9 Depression Total Score: 16 024 1:50 PM EDT documented as of this encounter Care Teams Retoucher Relationship Specialty Start Date End Date Syl Godfrey ANP 230 [place] [address] PCP - General Family Medicine 04/05/20 documented as of this encounter
--- OUTSIDE RECORDS SUMMARY | 2025-01-31 14:32 | XMS_ITS | Encounter Summary ---
Author Organization [employer] Address [address] [facility] 7t [place] [address] Care Team Providers Care Passenger Barge Master Name Role Phone Syl Godfrey Primary Care Provider [phone] Reason for Visit * Reason Onset Date Comments Med Refill 12/29/2024 Encounter Details Date Type Department Care Team (Late st Contact Info) Description 12/29/2024 Refill [facility] MEDICINE 230 [place] [address] Syl Godfrey ANP 230 [place] [address] Social History Tobacco Use Types Packs/Day Years [...] Description 04/25/2025 1:00 PM EDT Office Visit [facility] OPTOMETRY [address] [place] [address] Arabella Kingston, MACHELLE 230 [place] [address] documented as of this encounter Visit Diagnoses Not on filedocumented in this encounter Additional Health Concerns Assessment Noted Time PHQ-9 Depression Total Score: 16 024 1:50 PM EDT documented as of this encounter Care Teams Passenger Barge Master Relationship Specialty Start Date End Date Syl Godfrey ANP 230 [place] [address] PCP - General Family Medicine 04/05/20 documented as of this encounter
--- OUTSIDE RECORDS SUMMARY | 2025-01-31 14:32 | XMS_ITS | Encounter Summary ---
Author Organization [employer] Address [address] [facility] 7t [place] [address] Care Team Providers Care Silvering Applicator Name Role Phone Syl Godfrey Primary Care Provider [phone] Reason for Visit * Reason Onset Date Comments Med Refill 11/26/2023 Encounter Details Date Type Department Care Team ([facility] st Contact Info) Description 11/26/2023 Telephone [facility] MEDICINE 230 [place], [place] [phone] Syl Godfrey ANP 230 [place] [address] Med Refill Social History Tobacco Use Types [...] trazodone and melatonin To be sent to: [facility]/pharmacy #[id number] documented in this encounter Plan of Treatment Upcoming Encounters Date Type Department Care Team (Late st Contact Info) Description 04/25/2025 1:00 PM EDT Office Visit [facility] OPTOMETRY [address] [place] [address] Arabella Kingston, OD 230 [place] [address] documented as of this encounter Visit Diagnoses Not on filedocumented in this encounter Additional Health Concerns Assessment Noted Time PHQ-9 Depression Total Score: 17 023 3:15 PM EDT documented as of this encounter Care Teams Silvering Applicator Relationship Specialty Start Date End Date Syl Godfrey ANP 230 [place] [address] PCP - General Family Medicine 04/05/20 documented as of this encounter
--- OUTSIDE RECORDS SUMMARY | 2025-01-31 14:32 | XMS_ITS | Encounter Summary ---
Author Organization [employer] Address 75 [facility] 7t [place] [address] Care Team Providers Care Office Machine Embossograph Operator Name Role Phone Syl Godfrey Primary Care Provider [phone] Reason for Visit * Reason Onset Date Comments Prior Authorization 10/01/2023 Encounter Details Date Type Department Care Team ([facility] st Contact Info) Description 10/01/2023 Telephone [facility] MEDICINE 230 [place], [place] [phone] Syl Godfrey ANP 230 [place] [address] Prior Authorization Social History Tobacco Use Types [...] 12:39 PM EST SPOKE WITH PHARMACIST AT [facility], PATIENT DOES NO NEED PA ON [...] Description 04/25/2025 1:00 PM EDT Office Visit [facility] OPTOMETRY [address] [place], [place] [phone] Arabella Kingston, OD [address] [place], [place] [phone] documented as of this encounter Visit Diagnoses Not on filedocumented in this encounter Additional Health Concerns Assessment Noted Time PHQ-9 Depression Total Score: 17 023 3:15 PM EDT documented as of this encounter Care Teams Office Machine Embossograph Operator Relationship Specialty Start Date End Date Syl Godfrey ANP 230 [place] [address] PCP - General Family Medicine 04/05/20 documented as of this encounter
--- OUTSIDE RECORDS SUMMARY | 2025-01-31 14:32 | XMS_ITS | Encounter Summary ---
Author Organization [employer] Address 75 [facility] 7t [place] [address] Care Team Providers Care Turning Sander Operator Name Role Phone Bekah Syl REED Primary Care Provider [phone] Reason for Visit * Reason Comments Med Change Request Encounter Details Date Type Department Care Team ([facility] st Contact Info) Description 03/13/2023 Refill [facility] MEDICINE 230 [place] [address] Jocelyne Cheng CNM 230 [place] [address] Social History Tobacco Use Types Packs/Day Years [...] answer, left v/m. Will also message on Y[employer]. * Telephone Encounter - Jocelyne Cheng CNM [...] Description 04/25/2025 1:00 PM EDT Office Visit [facility] OPTOMETRY [address] [place] [address] Arabella Kingston, OD 230 [place] [address] documented as of this encounter Visit Diagnoses Not on filedocumented in this encounter Additional Health Concerns Assessment Noted Time PHQ-9 Depression Total Score: 17 023 3:15 PM EDT documented as of this encounter Care Teams Turning Sander Operator Relationship Specialty Start Date End Date Syl Godfrey ANP 230 [place] [address] PCP - General Family Medicine 04/05/20 documented as of this encounter
--- OUTSIDE RECORDS SUMMARY | 2025-01-31 14:32 | XMS_ITS | Encounter Summary ---
Author Organization [employer] Address 75 [facility] 7t [place] [address] Care Team Providers Care Bulk Intake Worker Name Role Phone Syl Godfrey Primary Care Provider [phone] Reason for Visit * Reason Onset Date Comments Med Refill 10/29/2024 Encounter Details Date Type Department Care Team (Late st Contact Info) Description 10/29/2024 Refill [facility] MEDICINE 230 [place] [address] Syl Godfrey ANP 230 [place] [address] Benign essential HTN Social History Tobacco Use [...] Description 04/25/2025 1:00 PM EDT Office Visit [facility] OPTOMETRY [address] [place] [address] Arabella Kingston, MACHELLE 230 [place] [address] documented as of this encounter Visit Diagnoses Diagnosis Benign essential HTN documented in this encounter Additional Health Concerns Assessment Noted Time PHQ-9 Depression Total Score: 16 024 1:50 PM EDT documented as of this encounter Care Teams Bulk Intake Worker Relationship Specialty Start Date End Date Syl Godfrey ANP 230 [place] [address] PCP - General Family Medicine 04/05/20 documented as of this encounter
--- OUTSIDE RECORDS SUMMARY | 2025-01-31 14:32 | XMS_ITS | Encounter Summary ---
Author Organization [employer] Address 75 [facility] 7t [place] [address] Care Team Providers Care Garden Consultant Name Role Phone Syl Godfrey Primary Care Provider [phone] Reason for Visit * Reason Onset Date Comments Med Refill 12/29/2024 Encounter Details Date Type Department Care Team (Late st Contact Info) Description 12/29/[address] [facility] MEDICINE 230 [place] [address] Syl Godfrey ANP 230 [place] [address] Social History Tobacco Use Types Packs/Day Years [...] Description 04/25/2025 1:00 PM EDT Office Visit [facility] OPTOMETRY [address] [place] [address] Arabella Kingston, MACHELLE 230 [place] [address] documented as of this encounter Visit Diagnoses Not on filedocumented in this encounter Additional Health Concerns Assessment Noted Time PHQ-9 Depression Total Score: 16 024 1:50 PM EDT documented as of this encounter Care Teams Garden Consultant Relationship Specialty Start Date End Date Syl Godfrey ANP 230 [place] [address] PCP - General Family Medicine 04/05/20 documented as of this encounter
--- OUTSIDE RECORDS SUMMARY | 2025-01-31 14:32 | XMS_ITS | Encounter Summary ---
Author Organization [employer] Address 75 [facility] 7t [place] [address] Care Team Providers Care Proof Press Operator Name Role Phone Bekah Syl REED Primary Care Provider [phone] Reason for Visit * Reason Comments Med Refill Encounter Details Date Type Department Care Team ([facility] st Contact Info) Description 03/08/2024 Refill [facility] MEDICINE 230 [place] [address] Meghana Cloud MD 230 [place] [address] Benign essential HTN Social History Tobacco Use [...] Description 04/25/2025 1:00 PM EDT Office Visit [facility] OPTOMETRY [address] [place], [place] [phone] TheeArabella wilcox, OD 230 [place] [address] documented as of this encounter Visit Diagnoses Diagnosis Benign essential HTN documented in this encounter Additional Health Concerns Assessment Noted Time PHQ-9 Depression Total Score: 16 024 1:50 PM EDT documented as of this encounter Care Teams Proof Press Operator Relationship Specialty Start Date End Date Syl Godfrey ANP 230 [place] [address] PCP - General Family Medicine 04/05/20 documented as of this encounter
--- OUTSIDE RECORDS SUMMARY | 2025-01-31 14:32 | XMS_ITS | Encounter Summary ---
Author Organization [employer] Address 75 [facility] 7t [place] [address] Care Team Providers Care Vision Mixer Name Role Phone Syl Godfrey Primary Care Provider [phone] Encounter Details Date Type Department Care Team (Late st Contact Info) Description 09/20/2022 Orders Only [facility] [address] [place], [place] [phone] Syl Godfrey ANP 230 [place] [address] Healthcare maintenance (Primary Dx) Social History Tobacco [...] Description 04/25/2025 1:00 PM EDT Office Visit [facility] OPTOMETRY [address] [place] [address] Arabella Kingston, OD 230 [place] [address] documented as of this encounter Procedures Procedure Name Priority Date/Time Associated Diagnosis Comments LYME DISEASE AB W/REFL TO BLOT (IGG, IGM) Routine 01/22/2023 11:45 AM EDT Healthcare maintenance VITAMIN B12 Routine 01/22/2023 11:45 AM EDT Healthcare maintenance documented in this encounter Results * Lyme Disease Ab with Reflex to Blot (IgG, IgM) (01/22/2023 11:45 AM EDT) Lyme Antibody Screen <0.90 index [facility] Comment:Index Interpretation ----- < 0.90 [...] when erythemamigrans is apparent.THIS TEST WAS PERFORMED AT:[facility] [place] [id number] BALL MD Lyme Blot TNP [facility] 01/22/2023 11:4 5 AM EDT 01/22/2023 11:45 AM EDT [facility] External Provider LAB BLO OD ORDERABLES Final Result [facility] [address] [place] [phone] * Vitamin B12 (01/22/2023 11:45 AM EDT) Vitamin B12 784 200 - 900 pg/mL [facility] Comment:NORMAL 200-900 PG/ML INDETERMINATE 160-199 PG/ML DEFICIENT < 160 PG/ML 01/22/2023 11:4 5 AM EDT 01/22/2023 11:45 AM EDT [facility] External Provider LAB BLO OD ORDERABLES Final Result [facility] [address] [place] [address] [phone] documented in this encounter Visit Diagnoses Diagnosis Healthcare maintenance- Primary documented in this encounter Care Teams Vision Mixer Relationship Specialty Start Date End Date Syl Godfrey ANP [address] [place] [address] PCP - General Family Medicine 04/05/20 documented as of this encounter
--- OUTSIDE RECORDS SUMMARY | 2025-01-31 14:32 | XMS_ITS | Encounter Summary ---
Author Organization [employer] Address 75 [facility] 7t [place] [address] Care Team Providers Care Purchaser Name Role Phone Syl Godfrey Primary Care Provider [phone] Reason for Visit * Reason Onset Date Comments Med Refill 05/10/2024 Encounter Details Date Type Department Care Team ([facility] st Contact Info) Description 05/10/2024 Telephone [facility] MEDICINE 230 [place], [place] [phone] Syl Godfrey ANP 230 [place] [address] Med Refill Social History Tobacco Use Types [...] 5-325 MG tablet To be sent to: [facility]/pharmacy #[id number] documented in this encounter Plan of Treatment Upcoming Encounters Date Type Department Care Team (Late st Contact Info) Description 04/25/2025 1:00 PM EDT Office Visit [facility] OPTOMETRY [address] [place] [address] Arabella Kingston, OD 230 [place] [address] documented as of this encounter Visit Diagnoses Not on filedocumented in this encounter Additional Health Concerns Assessment Noted Time PHQ-9 Depression Total Score: 16 024 1:50 PM EDT documented as of this encounter Care Teams Purchaser Relationship Specialty Start Date End Date Syl Godfrey ANP 230 [place] [address] PCP - General Family Medicine 04/05/20 documented as of this encounter
--- OUTSIDE RECORDS SUMMARY | 2025-01-31 14:32 | XMS_ITS | Encounter Summary ---
Author Organization [employer] Address 75 [facility] 7t [place] [address] Care Team Providers Care Oncology Technician Name Role Phone Syl Godfrey Primary Care Provider [phone] Reason for Visit * Reason Onset Date Comments Med Refill 05/10/2024 Encounter Details Date Type Department Care Team ([facility] st Contact Info) Description 05/10/[address] [facility] MEDICINE 230 [place], [place] [phone] Syl Godfrey ANP 230 [place] [address] Med Refill Social History Tobacco Use Types [...] 9:51 AM EDT Medication was sent to [facility] #[id number] on 01/26/24 #30 with 3 refills. * Telephone Encounter - Leonardo Bailon - 05/10/2024 9:33 AM EDT TC from pt requesting medication refill. Medications needing refill : melatonin 5 MG tablet To be sent to: [facility]/PHARMACY #[id number] - [place], [place] - [address] [place] [address] documented in this encounter Plan of Treatment Upcoming Encounters Date Type Department Care Team (Late st Contact Info) Description 04/25/2025 1:00 PM EDT Office Visit [facility] OPTOMETRY [address] [place] [address] Arabella Kingston, OD [address] [place] [address] documented as of this encounter Visit Diagnoses Not on filedocumented in this encounter Additional Health Concerns Assessment Noted Time PHQ-9 Depression Total Score: 16 024 1:50 PM EDT documented as of this encounter Care Teams Oncology Technician Relationship Specialty Start Date End Date Syl Godfrey ANP 230 [place] [address] PCP - General Family Medicine 04/05/20 documented as of this encounter
--- OUTSIDE RECORDS SUMMARY | 2025-01-31 14:32 | XMS_ITS | Encounter Summary ---
Author Organization [employer] Address 75 [facility] 7t [place] [address] Care Team Providers Care Saw Edge Fuser Circular Name Role Phone Bekah Syl REED Primary Care Provider [phone] Reason for Visit * Reason Onset Date Comments Med Refill 12/29/2024 Encounter Details Date Type Department Care Team (Late st Contact Info) Description 12/29/2024 Refill [facility] MEDICINE 230 [place] [address] Michelle Champan MD 230 [place] [address] Social History Tobacco Use Types Packs/Day Years [...] Description 04/25/2025 1:00 PM EDT Office Visit [facility] OPTOMETRY [address] [place] [address] Arabella Kingston, MACHELLE 230 [place] [address] documented as of this encounter Visit Diagnoses Not on filedocumented in this encounter Additional Health Concerns Assessment Noted Time PHQ-9 Depression Total Score: 16 024 1:50 PM EDT documented as of this encounter Care Teams Saw Edge Fuser Circular Relationship Specialty Start Date End Date Syl Godfrey ANP 230 [place] [address] PCP - General Family Medicine 04/05/20 documented as of this encounter
--- OUTSIDE RECORDS SUMMARY | 2025-01-31 14:32 | XMS_ITS | Encounter Summary ---
Author Organization [employer] Address 75 [facility] 7t [place] [address] Care Team Providers Care Wireless Watcher Name Role Phone Syl Godfrey Primary Care Provider [phone] Reason for Visit * Reason Comments Med Refill Encounter Details Date Type Department Care Team ([facility] st Contact Info) Description 02/24/2024 Refill [facility] MEDICINE 230 [place] [address] Syl Godfrey ANP 230 [place] [address] Social History Tobacco Use Types Packs/Day Years [...] Description 04/25/2025 1:00 PM EDT Office Visit [facility] OPTOMETRY [address] [place] [address] TheeArabella wilcox, OD 230 [place] [address] documented as of this encounter Visit Diagnoses Not on filedocumented in this encounter Additional Health Concerns Assessment Noted Time PHQ-9 Depression Total Score: 16 024 1:50 PM EDT documented as of this encounter Care Teams Wireless Watcher Relationship Specialty Start Date End Date Syl Godfrey ANP 230 [place] [address] PCP - General Family Medicine 04/05/20 documented as of this encounter
--- OUTSIDE RECORDS SUMMARY | 2025-01-31 14:32 | XMS_ITS | Encounter Summary ---
Author Organization [employer] Address 75 [facility] 7t [place] [address] Care Team Providers Care Beet Worker Name Role Phone Syl Godfrey Primary Care Provider [phone] Encounter Details Date Type Department Care Team (Late Contact Info) Description 03/05/2023 Abstract [facility] MEDICINE 230 [place] [address] Syl Godfrey ANP [address] [place] [address] Social History Tobacco Use Types Packs/Day Years [...] Description 04/25/2025 1:00 PM EDT Office Visit [facility] OPTOMETRY [address] [place] [address] Arabella Kingston, OD 230 [place], [place] [phone] documented as of this encounter Visit Diagnoses Not on filedocumented in this encounter Additional Health Concerns Assessment Noted Time PHQ-9 Depression Total Score: 17 023 3:15 PM EDT documented as of this encounter Care Teams Beet Worker Relationship Specialty Start Date End Date Syl Godfrey ANP 230 [place] [address] PCP - General Family Medicine 04/05/20 documented as of this encounter
--- OUTSIDE RECORDS SUMMARY | 2025-01-31 14:32 | XMS_ITS | Encounter Summary ---
Author Organization [employer] Address 75 [facility] 7t [place] [address] Care Team Providers Care Mohs Surgeon Name Role Phone Bekah Syl REED Primary Care Provider [phone] Reason for Visit * Reason Comments Med Refill Encounter Details Date Type Department Care Team ([facility] st Contact Info) Description 08/17/2023 Refill [facility] MEDICINE 230 [place] [address] Chino Ledezma FNP Social History Tobacco Use [...] 04/25/2025 1:00 PM EDT Office Visit [facility] OPTOMETRY [address] [place] [address] Arabella Kingston, MACHELLE 230 [place] [address] documented as of this encounter Visit Diagnoses Not on filedocumented in this encounter Additional Health Concerns Assessment Noted Time PHQ-9 Depression Total Score: 17 023 3:15 PM EDT documented as of this encounter Care Teams Mohs Surgeon Relationship Specialty Start Date End Date Syl Godfrey ANP 230 [place], [place] [phone] PCP - General Family Medicine 04/05/20 documented as of this encounter
[2025-01-31 17:18] LABS: Anion Gap 10 (12-20); Blood Urea Nitrogen 15 mg/dL (9-16); Calcium 9.2 mg/dL (8.4-10.2); Carbon Dioxide 35 mmol/L (22-29); Chloride 100 mmol/L (96-108); Estimated Glomerular Filt Rate > 60; Glucose Random 73 mg/dL (60-115); Sodium 142 mmol/L (135-145)
[2025-01-31 19:38] LABS: Potassium 2.9 mmol/L (3.3-5.1)
== END 2025-01-31 14:25 | disposition home or self-care (01) ==
LOC: HO.HHCL 14:24
PROVIDERS: Visit Provider Nurse Practitioner Primary Care
DX: E87.6 Hypokalemia (principal)
CPT/HCPCS: 36415; 80048

== ENCOUNTER 2025-02-01 13:40 | Outpatient (REF) | payer MEDICAID, SELFPAY ==
--- OUTSIDE RECORDS SUMMARY | 2025-02-01 14:49 | XMS_ITS | Encounter Summary ---
Author Organization [employer] [facility] [facility] [employer] Address 75 [facility] 7t [place] [address] Care Team Providers Care Form Drafter Name Role Phone Syl Godfrey Primary Care Provider [phone] Reason for Visit * Reason Onset Date Comments Med Refill 08/04/2024 Encounter Details Date Type Department Care Team ([facility] st Contact Info) Description 08/04/2024 Telephone [facility] MEDICINE [address] [place] [address] Syl Godfrey ANP [address] [place] [address] Med Refill Social History Tobacco Use Types [...] 300 MG tablet To be sent to: [facility]/pharmacy #[id number] documented in this encounter Plan of Treatment Upcoming Encounters Date Type Department Care Team (Late st Contact Info) Description 02/01/2025 5:00 PM EDT Office Visit [facility] [address] [place], [place] [phone] 04/25/2025 1:00 PM EDT Office Visit [facility] OPTOMETRY [address] [place], [place] [phone] Arabella Kingston, OD 230 [place] [address] documented as of this encounter Visit Diagnoses Not on filedocumented in this encounter Additional Health Concerns Assessment Noted Time PHQ-9 Depression Total Score: 16 024 1:50 PM EDT documented as of this encounter Care Teams Form Drafter Relationship Specialty Start Date End Date Syl Godfrey ANP 230 [place] [address] PCP - General Family Medicine 04/05/20 documented as of this encounter
--- OUTSIDE RECORDS SUMMARY | 2025-02-01 14:49 | XMS_ITS | Encounter Summary ---
Author Organization [employer] Address 75 [facility] 7t [place] [address] Care Team Providers Care Countersinker Name Role Phone Syl Godfrey Primary Care Provider [phone] Reason for Visit * Reason Onset Date Comments Med Refill 08/03/2024 Encounter Details Date Type Department Care Team (Late st Contact Info) Description 08/03/2024 Refill [facility] MEDICINE [address] [place] [address] Syl Godfrey ANP [address] [place] [address] Arthritis of right subtalar joint Social History [...] Description 02/01/2025 5:00 PM EDT Office Visit [facility] 230 [place], [place] [phone] 04/25/2025 1:00 PM EDT Office Visit [facility] OPTOMETRY [address] [place] [address] Thee, Arabella, OD 230 [place] [address] documented as of this encounter Visit Diagnoses Diagnosis Arthritis of right subtalar joint documented in this encounter Additional Health Concerns Assessment Noted Time PHQ-9 Depression Total Score: 16 024 1:50 PM EDT documented as of this encounter Care Teams Countersinker Relationship Specialty Start Date End Date Syl Godfrey ANP 230 [place] [address] PCP - General Family Medicine 04/05/20 documented as of this encounter
--- OUTSIDE RECORDS SUMMARY | 2025-02-01 14:49 | XMS_ITS | Encounter Summary ---
Author Organization [employer] Address [address] [facility] [address] [facility] [address] [place] [address] Care Team Providers Care Infectious Diseases Physician Name Role Phone Syl Godfrey Primary Care Provider [phone] Encounter Details Date Type Department Care Team ([facility] st Contact Info) Description 01/31/2025 Telephone [facility] MEDICINE [address] [place] [address] Michelle Chapman MD [address] [place] [address] Social History Tobacco Use Types Packs/Day Years [...] encounter Miscellaneous Notes * Telephone Encounter - Michelle Chapman MD - 01/31/2025 6:08 PM EDT Received a critical lab result from [facility] lab. K 2.9. Notified patient of the result. Asymptomatic. Patient does not want to go to ED, and agreed to take potassium chloride 40 mEq today and 20mEq tomorrow morning and come back for lab result tomorrow (02/01/25). We discussed about arranging a sick visit for further evaluation and management. documented in this encounter Plan of Treatment Upcoming Encounters Date Type Department Care Team (Late st Contact Info) Description 02/01/2025 5:00 PM EDT Office Visit [facility] [address] [place], [place] [id number] 04/25/2025 1:00 PM EDT Office Visit [facility] OPT[facility] [address] [place] [address] TheeArabella wilcox, OD [address] [place] [address] documented as of this encounter Visit Diagnoses Not on filedocumented in this encounter Additional Health Concerns Assessment Noted Time PHQ-9 Depression Total Score: 16 024 1:50 PM EDT documented as of this encounter Care Teams Infectious Diseases Physician Relationship Specialty Start Date End Date Syl Godfrey ANP [address] [place] [address] PCP - General Family Medicine 04/05/20 documented as of this encounter
--- OUTSIDE RECORDS SUMMARY | 2025-02-01 14:49 | XMS_ITS | Encounter Summary ---
Author Organization [employer] Address [address] [facility] [address] [place] [address] Care Team Providers Care Merchandise Carrier Name Role Phone Syl Godfrey Primary Care Provider [phone] Encounter Details Date Type Department Care Team ([facility] st Contact Info) Description 02/01/2025 Orders Only [facility] MEDICINE [address] [place] [address] Syl Godfrey ANP [address] [place] [address] Hypokalemia (Primary Dx) Social History Tobacco Use Types [...] encounter Progress Notes * BRIANNA Bhatia - 02/01/2025 11:10 AM EDT Spoke with patient-asked her to please stop taking apple cider vinegar supplement, stop HCTZ, get labs as ordered by Dr. Chapman and come to clinic for sick visit for EKG. Team nurses will reach patient to schedule sick visit and will call patient next week for blood pressure log review. Will consider ARB versus CCB start depending on blood pressure readings. documented in this encounter Plan of Treatment Upcoming Encounters Date Type Department Care Team (Late st Contact Info) Description 02/01/2025 5:00 PM EDT Office Visit [facility] [address] [place] [address] 04/25/2025 1:00 PM EDT Office Visit [facility] OPTOMETRY [address] [place] [address] Thee, Arabella, OD [address] [place] [address] documented as of this encounter Visit Diagnoses Diagnosis Hypokalemia- Primary Hypopotassemia documented in this encounter Additional Health Concerns Assessment Noted Time PHQ-9 Depression Total Score: 16 024 1:50 PM EDT documented as of this encounter Care Teams Merchandise Carrier Relationship Specialty Start Date End Date Syl Godfrey ANP [address] [place] [address] PCP - General Family Medicine 04/05/20 documented as of this encounter
--- OUTSIDE RECORDS SUMMARY | 2025-02-01 14:49 | XMS_ITS | Encounter Summary ---
Author Organization [employer] Address [address] [facility] [address]t [place] [address] Care Team Providers Care Oleo Hasher And Renderer Name Role Phone Syl Godfrey Primary Care Provider [phone] Reason for Visit * Reason Onset Date Comments Referral 09/18/2022 Encounter Details Date Type Department Care Team (Late st Contact Info) Description 09/18/2022 Telephone [facility] MEDICINE [address] [place] [address] Syl Godfrey ANP [address] [place] [address] Referral Social History Tobacco Use Types Packs/Day [...] a referral to are eye clinic here ([facility]) . documented in this encounter Plan of Treatment Upcoming Encounters Date Type Department Care Team (Late st Contact Info) Description 02/01/2025 5:00 PM EDT Office Visit [facility] [address] [place], [place] [phone] 04/25/2025 1:00 PM EDT Office Visit [facility] OPTOMETRY [address] [place] [address] Arabella Kingston, MACHELLE [address] [place] [address] documented as of this encounter Visit Diagnoses Not on filedocumented in this encounter Care Teams Oleo Hasher And Renderer Relationship Specialty Start Date End Date Syl Godfrey ANP [address] [place] [address] PCP - General Family Medicine 04/05/20 documented as of this encounter
--- OUTSIDE RECORDS SUMMARY | 2025-02-01 14:49 | XMS_ITS | Encounter Summary ---
Author Organization [employer] Address [address] [facility] 7t [place] [address] Care Team Providers Care Facilities Maintenance Manager Name Role Phone Syl Godfrey Primary Care Provider [phone] Reason for Visit * Reason Comments Med Refill Encounter Details Date Type Department Care Team ([facility] st Contact Info) Description 08/26/2024 Refill [facility] MEDICINE [address] [place] [address] Syl Godfrey ANP [address] [place] [address] Benign essential HTN Social History Tobacco Use [...] Description 02/01/2025 5:00 PM EDT Office Visit [facility] [address] [place] [address] 04/25/2025 1:00 PM EDT Office Visit [facility] OPTOMETRY [address] [place], [place] [phone] Thee, Arabella, OD [address] [place] [address] documented as of this encounter Visit Diagnoses Diagnosis Benign essential HTN documented in this encounter Additional Health Concerns Assessment Noted Time PHQ-9 Depression Total Score: 16 024 1:50 PM EDT documented as of this encounter Care Teams Facilities Maintenance Manager Relationship Specialty Start Date End Date Syl Godfrey ANP [address] [place] [address] PCP - General Family Medicine 04/05/20 documented as of this encounter
--- OUTSIDE RECORDS SUMMARY | 2025-02-01 14:49 | XMS_ITS | Encounter Summary ---
Author Organization [employer] Address [address] [facility] 7t [place] [address] Care Team Providers Care Priming Powder Premix Blender Name Role Phone Syl Godfrey Primary Care Provider [phone] Reason for Visit * Reason Comments Med Refill Encounter Details Date Type Department Care Team ([facility] st Contact Info) Description 09/12/2024 Refill [facility] MEDICINE [address] [place] [address] Syl Godfrey ANP [address] [place] [address] Benign essential HTN Social History Tobacco Use [...] Description 02/01/2025 5:00 PM EDT Office Visit [facility] [address] [place] [address] 04/25/2025 1:00 PM EDT Office Visit [facility] OPTOMETRY [address] [place], [place] [phone] Thee, Arbaella, OD [address] [place] [address] documented as of this encounter Visit Diagnoses Diagnosis Benign essential HTN documented in this encounter Additional Health Concerns Assessment Noted Time PHQ-9 Depression Total Score: 16 024 1:50 PM EDT documented as of this encounter Care Teams Priming Powder Premix Blender Relationship Specialty Start Date End Date Syl Godfrey ANP [address] [place] [address] PCP - General Family Medicine 04/05/20 documented as of this encounter
--- OUTSIDE RECORDS SUMMARY | 2025-02-01 14:49 | XMS_ITS | Encounter Summary ---
Author Organization [employer] Address [address] [facility] [address] [place] [address] Care Team Providers Care Research Programmer Name Role Phone Syl Godfrey Primary Care Provider [phone] Reason for Visit * Reason Comments Med Refill Encounter Details Date Type Department Care Team (Late st Contact Info) Description 02/04/2023 Refill [facility] MEDICINE [address] [place] [address] Syl Godfrey ANP 230 [place] [address] Social History Tobacco Use Types Packs/Day Years [...] 5:00 PM EDT Office Visit [facility] [address] [place] [address] 04/25/2025 1:00 PM EDT Office Visit [facility] OPTOMETRY [address] [place] [address] Arabella Kingston, MACHELLE [address] [place] [address] documented as of this encounter Visit Diagnoses Not on filedocumented in this encounter Additional Health Concerns Assessment Noted Time PHQ-9 Depression Total Score: 17 023 3:15 PM EDT documented as of this encounter Care Teams Research Programmer Relationship Specialty Start Date End Date Syl Godfrey ANP [address] [place] [address] PCP - General Family Medicine 04/05/20 documented as of this encounter
--- OUTSIDE RECORDS SUMMARY | 2025-02-01 14:49 | XMS_ITS | Encounter Summary ---
Author Organization [employer] Address [address] [facility] [address]t [place] [address] Care Team Providers Care Environmental Protection Economist Name Role Phone Syl Godfrey Primary Care Provider [phone] Reason for Visit * Reason Comments Med Refill Encounter Details Date Type Department Care Team ([facility] st Contact Info) Description 09/13/2024 Refill [facility] MEDICINE [address] [place] [address] Syl Godfrey ANP [address] [place] [address] Benign essential HTN Social History Tobacco Use [...] Description 02/01/2025 5:00 PM EDT Office Visit [facility] [address] [place] [address] 04/25/2025 1:00 PM EDT Office Visit [facility] OPTOMETRY [address] [place], [place] [phone] Thee, Arabella, OD [address] [place] [address] documented as of this encounter Visit Diagnoses Diagnosis Benign essential HTN documented in this encounter Additional Health Concerns Assessment Noted Time PHQ-9 Depression Total Score: 16 024 1:50 PM EDT documented as of this encounter Care Teams Environmental Protection Economist Relationship Specialty Start Date End Date Syl Godfrey ANP [address] [place] [address] PCP - General Family Medicine 04/05/20 documented as of this encounter
--- OUTSIDE RECORDS SUMMARY | 2025-02-01 14:49 | XMS_ITS | Encounter Summary ---
Author Organization [employer] Address [address] [facility] [facility] [address] [place] [address] Care Team Providers Care Surgical Supplies Sterilizer Name Role Phone Syl Godfrey BRIANNA Primary Care Provider [phone] Encounter Details Date Type Department Care Team (Latest Contact Info) Description 02/01/2025 Travel Social History Tobacco Use Types Packs/Day [...] Description 02/01/2025 5:00 PM EDT Office Visit [facility] [address] [place] [address] 04/25/2025 1:00 PM EDT Office Visit [facility] OPTOMETRY [address] [place] [address] Thee, Arabella, OD [address] [place] [address] documented as of this encounter Visit Diagnoses Not on filedocumented in this encounter Additional Health Concerns Assessment Noted Time PHQ-9 Depression Total Score: 16 024 1:50 PM EDT documented as of this encounter Care Teams Surgical Supplies Sterilizer Relationship Specialty Start Date End Date Syl Godfrey ANP [address] [place] [address] PCP - General Family Medicine 04/05/20 documented as of this encounter
--- OUTSIDE RECORDS SUMMARY | 2025-02-01 14:49 | XMS_ITS | Encounter Summary ---
Author Organization [employer] Address [address] [facility] [address] [place] [address] Care Team Providers Care Supervisor Engraving Name Role Phone Godfrey Syl REED Primary Care Provider [phone] Encounter Details Date Type Department Care Team ([facility] st Contact Info) Description 01/31/2025 Orders Only [facility] MEDICINE [address] [place] [address] Michelle Chapman MD [address] [place] [address] Hypokalemia (Primary Dx) Social History Tobacco Use [...] Description 02/01/2025 5:00 PM EDT Office Visit [facility] [address] [place] [address] 04/25/2025 1:00 PM EDT Office Visit [facility] OPTOMETRY [address] [place] [address] Thee, Arabella, OD [address] [place] [address] Scheduled Orders Name Type Priority Associated Diagnoses Orde r Schedule Magnesium Lab STAT Hypokalemia Expected: 01/31/2025, Expires: 01/31/2026 Basic Metabolic Panel Lab STAT Hypokalemia Expected: 01/31/2025 (Approximate), Expires: 01/31/2026 documented as of this encounter Visit Diagnoses Diagnosis Hypokalemia- Primary Hypopotassemia documented in this encounter Additional Health Concerns Assessment Noted Time PHQ-9 Depression Total Score: 16 024 1:50 PM EDT documented as of this encounter Care Teams Supervisor Engraving Relationship Specialty Start Date End Date Syl Godfrey ANP [address] [place] [address] PCP - General Family Medicine 04/05/20 documented as of this encounter
--- OUTSIDE RECORDS SUMMARY | 2025-02-01 14:49 | XMS_ITS | Encounter Summary ---
Author Organization [employer] Address [address] [facility] [address] [place] [address] Care Team Providers Care Food And Beverage Assistant Manager Name Role Phone Syl Godfrey BRIANNA Primary Care Provider [phone] Encounter Details Date Type Department Care Team [...] Description 02/01/2025 5:00 PM EDT Office Visit [facility] [address] [place] [address] 04/25/2025 1:00 PM EDT Office Visit [facility] OPTOMETRY [address] [place] [address] Thee, Arabella, OD 230 [place] [address] documented as of this encounter Visit Diagnoses Not on filedocumented in this encounter Additional Health Concerns Assessment Noted Time PHQ-9 Depression Total Score: 16 024 1:50 PM EDT documented as of this encounter Care Teams Food And Beverage Assistant Manager Relationship Specialty Start Date End Date Syl Godfrey ANP [address] [place] [address] PCP - General Family Medicine 04/05/20 documented as of this encounter
--- OUTSIDE RECORDS SUMMARY | 2025-02-01 14:49 | XMS_ITS | Encounter Summary ---
Author Organization [employer] Address [address] [facility] [address]t [place] [address] Care Team Providers Care Creche Attendant Name Role Phone Syl Godfrey Primary Care Provider [phone] Reason for Visit * Reason Comments Follow-up Encounter Details Date Type Department Care Team (Latest Contact Info) Description 01/31/2025 1:30 PM EDT Office Visit [facility] MEDICINE [address] [place] [address] Syl Godfrey ANP [address] [place] [address] Hypertriglyceridemia (Primary Dx); Benign essential HTN; Screening for colorectal cancer; Bipolar 2 disorder (CMS/HCC); Routine physical examination; Screening for colon cancer; Flushing reaction; Dietary counseling; Exercise counseling; Hypokalemia Social History Tobacco Use Types Packs/Day Years [...] the past 12 months, has t he [employer], gas, oil or water company threatened to [...] 1:48 PM EDT documented in this encounter Progress Notes * BRIANNA Bhatia - 01/31/2025 1:30 PM EDT SUBJECTIVE: Dilia Boateng is a 59 y.o. year old female who presents for routine physical exam. Denies recent illness, injury, or hospitalization. PMH has a past medical history of Bipolar II disorder ([facility]), COVID-19 (04/15/2022), History of abnormal mammogram (03/05/2023), Hypertension, Hypertriglyceridemia, Right calcaneal fracture (2009), and Thyroid nodule. Acute Concerns: Weight: relatively stable, still having cravings, recommended to discuss w/ her supports. CRC screening - was referred for c-scope but afraid to do. Accepts cologuard. Chest flushing, happens randomly, doesn't itch or hurt, no assoc sx. Lasts for 1hr then spontaneously resolves. Did see psych on Friday. Stopped seroquel on her own and plan is [facility] at [facility], possibly d/t [place]. weight check: No longer eligible for GLP1. Encouraged to work w/ re: anxiety, food cravings. BMI Readings from Last 5 Encounters: 01/31/25 25.05 kg/m?? 12/07/24 24.13 kg/m?? 11/11/24 22.40 kg/m?? 08/19/24 24.79 kg/m?? 01/26/24 28.54 kg/m?? Wt Readings from Last 5 Encounters: 01/31/25 154 lb (69.9 kg) 12/07/24 149 lb 8 oz (67.8 kg) 11/11/24 138 lb 12.8 oz (63 kg) 08/19/24 153 lb 9.6 oz (69.7 kg) 01/26/24 176 lb 12.8 oz (80.2 kg) Declines IZ today. Social History Social History Narrative Not on file Problem List[1] Surgical History[2] Family History[3] Review of Systems Constitutional: Negative for chills and fever. HENT: Negative for sore throat. Respiratory: Negative for cough and shortness of breath. Cardiovascular: Negative for chest pain. Gastrointestinal: Negative for constipation and diarrhea. Endocrine: Negative for polydipsia, polyphagia and polyuria. Genitourinary: Negative for dysuria. Psychiatric/Behavioral: Positive for sleep disturbance. OBJECTIVE: Vitals: 01/31/25 1348 BP: 110/67 BP Location: Left arm Patient Position: Sitting BP Cuff Size: Adult Pulse: 54 Resp: 20 Weight: 154 lb (69.9 kg) Height: 5' 5.75 (1.67 m) Physical Exam Constitutional: General: She is not in acute distress. Appearance: Normal appearance. She is not ill-appearing. HENT: Head: Normocephalic and atraumatic. Eyes: General: No scleral icterus. Extraocular Movements: Extraocular movements intact. Pupils: Pupils are equal, round, and reactive to light. Cardiovascular: Rate and Rhythm: Normal rate and regular rhythm. Pulmonary: Effort: Pulmonary effort is normal. No accessory muscle usage or respiratory distress. Breath sounds: Normal breath sounds. Musculoskeletal: Right lower leg: No edema. Left lower leg: No edema. Skin: General: Skin is warm and dry. Neurological: Mental Status: She is alert and oriented to person, place, and time. Psychiatric: Mood and Affect: Mood normal. Behavior: Behavior normal. ASSESSMENT/PLAN Dilia was seen today for follow-up. Diagnoses and all orders for this visit: Hypokalemia Has not gotten repeat BMP. will go now. Asymptomatic. Hypertriglyceridemia (Primary) - omega-3 acid ethyl esters (Lovaza) 1 g capsule; Take 1 capsule (1 g) by mouth 2 times daily. Benign essential HTN At/near goal today, </= 130/80. Continue to encourage low salt diet, regular exercise, home BP monitoring, compliance with medications. Has not gotten repeat BMP will go now. Call clinic if BP is frequently >150/90 Go to ED/call 911 if > 170/100 and having sx such as BOSCH, visual changes, chest pain, SOB Last renal function: Lab Results Component Value Date GLUCOSE 73 01/31/2025 NA 142 01/31/2025 K 2.9 (LL) 01/31/2025 CO2 35 (H) 01/31/2025 CL 100 01/31/2025 BUN 15 01/31/2025 CREATININE 0.91 01/31/2025 EGFR >60 01/31/2025 Lab Results Component Value Date MICROALBCREA 3 08/08/2020 Lab Results Component Value Date MICROALBCREU 10.9 10/21/2023 BMP above drawn after visit. Provider fractionating still operator recommended ED, pt declines. Accepted potassium supplement and repeat BMP. Will stop hydrochlorothiazide and clarify if pt having any GI sx. Bipolar 2 disorder (CMS/HCC) Cont follow-up w/ psychiatry Routine physical examination UTD w/ most activities, cologuard ordered, declines IZ today. Screening for colon cancer - Cologuard?? colon cancer screening Flushing reaction Comments: unk trigger, better w/ hydrocortisone, let me know if increases in frequency/new sx, let me know Dietary counseling Exercise counseling Lifestyle recommendations: be as active as able, ideally exercise 150min moderate intensity or 75min vigorous intensity weekly; increase intake of vegetables, fruits, whole grains, fish. Try to minimize intake of sugary or greasy food and drink. Use olive oil or vegetable, peanut, canola, or similar oil for cooking. Decrease or stop drinking alcohol if you drink, quit/decrease smoking if you smoke. Follow Up: 6 mo, HTN Medications Ordered Prior to Encounter[4] [1] Patient Active Problem List Diagnosis Allergic rhinitis Bipolar 2 disorder (CMS/HCC) Chronic pain Cyst of thyroid Goiter Heel pain Hypertriglyceridemia Idiopathic urticaria Insomnia Transient cerebral ischemia Arthritis of right subtalar joint Routine physical examination Screening for colorectal cancer Mass of axillary tail of left breast Vasomotor symptoms due to menopause Benign essential HTN [2] Past Surgical History: Procedure Laterality Date SECTION, CLASSIC SECTION, LOW TRANSVERSE HERNIA REPAIR Bilateral inguinal [3] Family History Problem Relation Name Age of Onset Stroke Mother Myself Cancer Mother Myself Depression Mother Myself Mental illness Mother Myself Miscarriages / Stillbirths Mother Myself Accidental Son from overdose at 30 Coronary artery disease Maternal Grandmother Myself Hypertension Maternal Grandmother Myself [4] Current Outpatient Medications on File Prior to Visit Medication Sig Dispense Refill atorvastatin (Lipitor) 40 MG tablet TAKE 1 TABLET BY MOUTH EVERY DAY 90 tablet 3 buPROPion XL (Wellbutrin XL) 300 MG 24 hr tablet Take 1 tablet (300 mg) by mouth in the morning. 90tablet 1 cetirizine (ZyrTEC) 10 MG tablet TAKE 1 TABLET BY MOUTH EVERY DAY NEEDED FOR FOR ALLERGY 90 tablet 3 hydroCHLOROthiazide 12.5 MG tablet TAKE 1 TABLET BY MOUTH EVERY DAY 90 tablet 0 ibuprofen 800 MG tablet TAKE 1 TABLET BY MOUTH 3 TIMES DAILY. 60 tablet 1 Multiple Vitamin (multivitamin) tablet TAKE 1 TABLET BY MOUTH EVERYDAY IN THE MORNING 90 tablet 1 traZODone (Desyrel) 300 MG tablet Take 300 mg by mouth at bedtime. [DISCONTINUED] QUEtiapine (SEROquel) 300 MG tablet TAKE 1 TABLET BY MOUTH EVERYDAY AT BEDTIME 90 tablet 0 [DISCONTINUED] traZODone (Desyrel) 150 MG tablet TAKE 1 TABLET BY MOUTH EVERYDAY AT BEDTIME 30 tablet 2 melatonin 5 MG tablet TAKE 1 TABLET BY MOUTH AT BEDTIME NEEDED FOR INSOMNIA 30 tablet 5 [DISCONTINUED] omega-3 acid ethyl esters (Lovaza) 1 g capsule Take 1 capsule (1 g) by mouth 2 timesdaily. 60 capsule 11 [DISCONTINUED] Tirzepatide-Weight Management (Zepbound) 2.5 MG/0.5ML solution auto-injector Inject 0.5 mL (2.5 mg) under the skin 1 (one) time per week. 2 mL 0 No current facility-administered medications on file prior to visit. documented in this encounter Plan of Treatment Upcoming Encounters Date Type Department Care Team (Late st Contact Info) Description 02/01/2025 5:00 PM EDT Office Visit [facility] [address] [place] [address] 04/25/2025 1:00 PM EDT Office Visit [facility] OPTOMETRY [address] [place] [address] Thee, Arabella, OD [address] [place] [address] Scheduled Orders Name Type Priority Associated Diagnoses [...] counseling Dietary surveillance and counseling Exercise counseling Hypokalemia Hypopotassemia documented in this encounter Additional Health Concerns Assessment Noted Time PHQ-9 Depression Total Score: 16 024 1:50 PM EDT documented as of this encounter Care Teams Creche Attendant Relationship Specialty Start Date End Date Syl Godfrey ANP [address] [place] [address] PCP - General Family Medicine 04/05/20 documented as of this encounter
--- OUTSIDE RECORDS SUMMARY | 2025-02-01 14:49 | XMS_ITS | Encounter Summary ---
Author Organization [employer] Address 75 [facility] 7t [place] [address] Care Team Providers Care Manager Marketing Name Role Phone Syl Godfrey Primary Care Provider [phone] Encounter Details Date Type Department Care Team ([facility] st Contact Info) Description 01/31/2025 Results Follow-Up [facility] MEDICINE [address] [place] [address] Syl Godfrey ANP 230 [place] [address] Basic Metabolic Panel Social History Tobacco Use Types Packs/Day Years [...] as of this encounter Miscellaneous Notes * Result Encounter Note - BRIANNA Bhatia - 01/31/2025 5:48 PM EDT Addressed by call worker provider, Dr. Chapman documented in this encounter Plan of Treatment Upcoming Encounters Date Type Department Care Team (Late st Contact Info) Description 02/01/2025 5:00 PM EDT Office Visit [facility] [address] [place] [address] 04/25/2025 1:00 PM EDT Office Visit [facility] OPTOMETRY [address] [place] [address] Thee, Arabella, OD 230 [place] [address] documented as of this encounter Visit Diagnoses Not on filedocumented in this encounter Additional Health Concerns Assessment Noted Time PHQ-9 Depression Total Score: 16 024 1:50 PM EDT documented as of this encounter Care Teams Manager Marketing Relationship Specialty Start Date End Date Syl Godfrey ANP 230 [place] [address] PCP - General Family Medicine 04/05/20 documented as of this encounter
--- OUTSIDE RECORDS SUMMARY | 2025-02-01 14:50 | XMS_ITS | Encounter Summary ---
Author Organization [employer] Address 75 [facility] 7t [place] [address] Care Team Providers Care Hat Liner Name Role Phone Bekah Syl REED Primary Care Provider [phone] Reason for Visit * Reason Onset Date Comments Med Refill 12/29/2024 Encounter Details Date Type Department Care Team (Late st Contact Info) Description 12/29/[address] [facility] MEDICINE [address] [place] [address] Michelle Chapman MD 230 [place] [address] Social History Tobacco Use Types Packs/Day Years [...] 5:00 PM EDT Office Visit [facility] WALK[facility]IN CENTER 230 [place] [address] 04/25/2025 1:00 PM EDT Office Visit [facility] OPTOMETRY [address] [place] [address] Thee, Arabella, OD 230 [place] [address] documented as of this encounter Visit Diagnoses Not on filedocumented in this encounter Additional Health Concerns Assessment Noted Time PHQ-9 Depression Total Score: 16 024 1:50 PM EDT documented as of this encounter Care Teams Hat Liner Relationship Specialty Start Date End Date Syl Godfrey ANP 230 [place] [address] PCP - General Family Medicine 04/05/20 documented as of this encounter
--- OUTSIDE RECORDS SUMMARY | 2025-02-01 14:50 | XMS_ITS | Encounter Summary ---
Author Organization [employer] Address 75 [facility] 7t [place] [address] Care Team Providers Care Document Clerk Name Role Phone Syl Godfrey Primary Care Provider Reason for Visit * Reason Onset Date Comments Prior Authorization 10/01/2023 Encounter Details Date Type Department Care Team ([facility] st Contact Info) Description 10/01/2023 Telephone [facility] MEDICINE [address] [place], [place] [phone] Syl Godfrey ANP 230 [place] [address] Prior Authorization Social History Tobacco Use Types [...] 12:39 PM EST SPOKE WITH PHARMACIST AT [facility], PATIENT DOES NO NEED PA ON [...] Description 02/01/2025 5:00 PM EDT Office Visit [facility] WALK[facility]IN CENTER [address] [place], [place] [phone] 04/25/2025 1:00 PM EDT Office Visit [facility] OPTOMETRY [address] [place], [place] [phone] Arabella Kingston, MACHELLE 230 [place] [address] documented as of this encounter Visit Diagnoses Not on filedocumented in this encounter Additional Health Concerns Assessment Noted Time PHQ-9 Depression Total Score: 17 023 3:15 PM EDT documented as of this encounter Care Teams Document Clerk Relationship Specialty Start Date End Date Syl Godfrey ANP [address] [place] [address] PCP - General Family Medicine 04/05/20 documented as of this encounter
--- OUTSIDE RECORDS SUMMARY | 2025-02-01 14:50 | XMS_ITS | Encounter Summary ---
Author Organization [employer] Address 75 [facility] 7t [place] [address] Care Team Providers Care Deer Farm Worker Name Role Phone Syl Godfrey Primary Care Provider [phone] Reason for Visit * Reason Onset Date Comments Med Refill 12/29/2024 Encounter Details Date Type Department Care Team (Late st Contact Info) Description 12/29/2024 Refill [facility] MEDICINE [address] [place] [address] Syl Godfrey ANP 230 [place] [address] Primary insomnia Social History Tobacco Use Types [...] 02/01/2025 5:00 PM EDT Office Visit [facility] WALK[facility]IN [facility] [address] [place] [address] 04/25/2025 1:00 PM EDT Office Visit [facility] OPTOMETRY [address] [place] [address] Thee, Arabella, OD 230 [place] [address] documented as of this encounter Visit Diagnoses Diagnosis Primary insomnia Persistent disorder of initiating or maintaining sleep documented in this encounter Additional Health Concerns Assessment Noted Time PHQ-9 Depression Total Score: 16 024 1:50 PM EDT documented as of this encounter Care Teams Deer Farm Worker Relationship Specialty Start Date End Date Syl Godfrey ANP 230 [place] [address] PCP - General Family Medicine 04/05/20 documented as of this encounter
--- OUTSIDE RECORDS SUMMARY | 2025-02-01 14:50 | XMS_ITS | Encounter Summary ---
Author Organization [employer] Address 75 [facility] 7t [place] [address] Care Team Providers Care Boat Fueler Name Role Phone Bekah Syl REED Primary Care Provider [phone] Reason for Visit * Reason Comments Med Change Request Encounter Details Date Type Department Care Team ([facility] st Contact Info) Description 03/13/2023 Refill [facility] MEDICINE [address] [place] [address] Jocelyne Cheng CNM [address] [place] [address] Social History Tobacco Use Types Packs/Day Years [...] answer, left v/m. Will also message on [employer] (Inspect Manager). * Telephone Encounter - Jocelyne Cheng CNM [...] Description 02/01/2025 5:00 PM EDT Office Visit [facility] WALK[facility]IN [facility] [address] [place] [address] 04/25/2025 1:00 PM EDT Office Visit [facility] OPTOMETRY [address] [place] [address] Arabella Kingston, MACHELLE 230 [place] [address] documented as of this encounter Visit Diagnoses Not on filedocumented in this encounter Additional Health Concerns Assessment Noted Time PHQ-9 Depression Total Score: 17 023 3:15 PM EDT documented as of this encounter Care Teams Boat Fueler Relationship Specialty Start Date End Date Syl Godfrey ANP 230 [place] [address] PCP - General Family Medicine 04/05/20 documented as of this encounter
--- OUTSIDE RECORDS SUMMARY | 2025-02-01 14:50 | XMS_ITS | Encounter Summary ---
Author Organization [employer] Address 75 [facility] 7t [place] [address] Care Team Providers Care Dye Weigher Helper Name Role Phone Bekah Syl REED Primary Care Provider [phone] Reason for Visit * Reason Comments Med Refill Encounter Details Date Type Department Care Team ([facility] st Contact Info) Description 08/17/2023 Refill [facility] MEDICINE [address] [place] [address] Chino Ledezma FNP Social History Tobacco Use [...] Description 02/01/2025 5:00 PM EDT Office Visit [facility] WALK[facility]IN [facility]ENTER 230 [place] [address] 04/25/2025 1:00 PM EDT Office Visit [facility] OPTOMETRY [address] [place] [address] Thee, Arabella, OD [address] [place] [address] documented as of this encounter Visit Diagnoses Not on filedocumented in this encounter Additional Health Concerns Assessment Noted Time PHQ-9 Depression Total Score: 17 023 3:15 PM EDT documented as of this encounter Care Teams Dye Weigher Helper Relationship Specialty Start Date End Date Syl Godfrey ANP 230 [place] [address] PCP - General Family Medicine 04/05/20 documented as of this encounter
--- OUTSIDE RECORDS SUMMARY | 2025-02-01 14:50 | XMS_ITS | Encounter Summary ---
Author Organization [employer] Address 75 [facility] 7t [place] [address] Care Team Providers Care Ecology Teacher Name Role Phone Syl Godfrey Primary Care Provider [phone] Reason for Visit * Reason Onset Date Comments Med Refill 11/26/2023 Encounter Details Date Type Department Care Team ([facility] st Contact Info) Description 11/26/[address] [facility] MEDICINE 230 [place], [place] [phone] Syl Godfrey ANP [address] [place] [address] Med Refill Social History Tobacco Use Types [...] trazodone and melatonin To be sent to: [facility]/pharmacy #[id number] documented in this encounter Plan of Treatment Upcoming Encounters Date Type Department Care Team (Late st Contact Info) Description 02/01/2025 5:00 PM EDT Office Visit [facility] 230 [place] [address] 04/25/2025 1:00 PM EDT Office Visit [facility] OPTOMETRY [address] [place] [address] Arabella Kingston, OD 230 [place] [address] documented as of this encounter Visit Diagnoses Not on filedocumented in this encounter Additional Health Concerns Assessment Noted Time PHQ-9 Depression Total Score: 17 023 3:15 PM EDT documented as of this encounter Care Teams Ecology Teacher Relationship Specialty Start Date End Date Syl Godfrey ANP 230 [place] [address] PCP - General Family Medicine 04/05/20 documented as of this encounter
--- OUTSIDE RECORDS SUMMARY | 2025-02-01 14:50 | XMS_ITS | Encounter Summary ---
Author Organization [employer] Address 75 [facility] 7t [place] [address] Care Team Providers Care Motor Brakeman Name Role Phone Syl Godfrey Primary Care Provider [phone] Reason for Visit * Reason Onset Date Comments Med Refill 05/10/2024 Encounter Details Date Type Department Care Team ([facility] st Contact Info) Description 05/10/2024 Telephone [facility] MEDICINE 230 [place], [place] [phone] Syl Godfrey ANP 230 [place] [address] Med Refill Social History Tobacco Use Types [...] 9:51 AM EDT Medication was sent to [facility] #[id number] on 01/26/24 #30 with 3 refills. * Telephone Encounter - Leonardo Bailon - 05/10/2024 9:33 AM EDT TC from pt requesting medication refill. Medications needing refill : melatonin 5 MG tablet To be sent to: [facility]/PHARMACY #[id number] - [place], [place] - [address] [place] [address] documented in this encounter Plan of Treatment Upcoming Encounters Date Type Department Care Team (Late st Contact Info) Description 02/01/2025 5:00 PM EDT Office Visit [facility] WALK[facility]IN CENTER 230 [place], [place] [phone] 04/25/2025 1:00 PM EDT Office Visit [facility] OPTOMETRY [address] [place] [address] Arabella Kingston, OD 230 [place] [address] documented as of this encounter Visit Diagnoses Not on filedocumented in this encounter Additional Health Concerns Assessment Noted Time PHQ-9 Depression Total Score: 16 024 1:50 PM EDT documented as of this encounter Care Teams Motor Brakeman Relationship Specialty Start Date End Date Syl Godfrey ANP 230 [place] [address] PCP - General Family Medicine 04/05/20 documented as of this encounter
--- OUTSIDE RECORDS SUMMARY | 2025-02-01 14:50 | XMS_ITS | Encounter Summary ---
Author Organization [employer] Address 75 [facility] 7t [place] [address] Care Team Providers Care Home Care Manager Name Role Phone Syl Godfrey Primary Care Provider [phone] Reason for Visit * Reason Onset Date Comments Med Refill 12/29/2024 Encounter Details Date Type Department Care Team (Late st Contact Info) Description 12/29/2024 Refill [facility] MEDICINE [address] [place] [address] Syl Godfrey ANP 230 [place] [address] Primary insomnia Social History Tobacco Use Types [...] Description 02/01/2025 5:00 PM EDT Office Visit [facility] WALK[facility]IN [facility] [address] [place] [address] 04/25/2025 1:00 PM EDT Office Visit [facility] OPTOMETRY [address] [place] [address] Thee, Arabella, OD 230 [place] [address] documented as of this encounter Visit Diagnoses Diagnosis Primary insomnia Persistent disorder of initiating or maintaining sleep documented in this encounter Additional Health Concerns Assessment Noted Time PHQ-9 Depression Total Score: 16 024 1:50 PM EDT documented as of this encounter Care Teams Home Care Manager Relationship Specialty Start Date End Date Syl Godfrey ANP 230 [place] [address] PCP - General Family Medicine 04/05/20 documented as of this encounter
--- OUTSIDE RECORDS SUMMARY | 2025-02-01 14:50 | XMS_ITS | Encounter Summary ---
Author Organization [employer] Address 75 [facility] 7t [place] [address] Care Team Providers Care Ceo & Board Director Name Role Phone Syl Godfrey Primary Care Provider [phone] Reason for Visit * Reason Onset Date Comments CHART PREP 01/28/2025 Encounter Details Date Type Department Care Team ([facility] st Contact Info) Description 01/28/[address] [facility] MEDICINE [address] [place] [address] Syl Godfrey ANP [address] [place] [address] CHART PREP Social History Tobacco Use Types [...] 02/01/2025 5:00 PM EDT Office Visit [facility] [address] [place] [address] 04/25/2025 1:00 PM EDT Office Visit [facility] OPTOMETRY [address] [place] [address] Arabella Kingston, OD 230 [place] [address] documented as of this encounter Visit Diagnoses Not on filedocumented in this encounter Additional Health Concerns Assessment Noted Time PHQ-9 Depression Total Score: 16 024 1:50 PM EDT documented as of this encounter Care Teams Ceo & Board Director Relationship Specialty Start Date End Date Syl Godfrey ANP 230 [place] [address] PCP - General Family Medicine 04/05/20 documented as of this encounter
--- OUTSIDE RECORDS SUMMARY | 2025-02-01 14:50 | XMS_ITS | Encounter Summary ---
Author Organization [employer] Address 75 [facility] 7t [place] [address] Care Team Providers Care Field Service Manager Name Role Phone Syl Godfrey Primary Care Provider [phone] Reason for Visit * Reason Onset Date Comments Med Refill 10/29/2024 Encounter Details Date Type Department Care Team (Late st Contact Info) Description 10/29/2024 Refill [facility] MEDICINE 230 [place] [address] Syl Godfrey ANP [address] [place] [address] Benign essential HTN Social History Tobacco Use [...] Visit [facility] WALK[facility]IN CENTER 230 [place] [address] 04/25/2025 1:00 PM EDT Office Visit [facility] OPTOMETRY [address] [place] [address] Thee, Arabella, OD 230 [place] [address] documented as of this encounter Visit Diagnoses Diagnosis Benign essential HTN documented in this encounter Additional Health Concerns Assessment Noted Time PHQ-9 Depression Total Score: 16 024 1:50 PM EDT documented as of this encounter Care Teams Field Service Manager Relationship Specialty Start Date End Date Syl Godfrey ANP [address] [place] [address] PCP - General Family Medicine 04/05/20 documented as of this encounter
--- OUTSIDE RECORDS SUMMARY | 2025-02-01 14:50 | XMS_ITS | Encounter Summary ---
Author Organization [employer] Address [address] [facility] [address] 7t [place] [address] Care Team Providers Care Senior Category Manager Name Role Phone Syl Godfrey Primary Care Provider [phone] Encounter Details Date Type Department Care Team (Late Contact Info) Description 03/05/2023 Abstract [facility] MEDICINE [address] [place] [address] Syl Godfrey ANP [address] [place] [address] Social History Tobacco Use Types Packs/Day Years [...] Description 02/01/2025 5:00 PM EDT Office Visit [facility]ALK[facility] [address] [place] [address] 04/25/2025 1:00 PM EDT Office Visit [facility] OPTOMETRY [address] [place] [address] Arabella Kingston, MACHELLE 230 [place] [address] documented as of this encounter Visit Diagnoses Not on filedocumented in this encounter Additional Health Concerns Assessment Noted Time PHQ-9 Depression Total Score: 17 023 3:15 PM EDT documented as of this encounter Care Teams Senior Category Manager Relationship Specialty Start Date End Date Syl Godfrey ANP [address] [place] [address] PCP - General Family Medicine 04/05/20 documented as of this encounter
--- OUTSIDE RECORDS SUMMARY | 2025-02-01 14:50 | XMS_ITS | Encounter Summary ---
Author Organization [employer] Address 75 [facility] 7t [place] [address] Care Team Providers Care Hall Supervisor Name Role Phone Syl Godfrey Primary Care Provider Reason for Visit * Reason Onset Date Comments Appointment Request 11/26/2023 Appointment 11/26/2023 [facility] Encounter Details Date Type Department Care Team ([facility] st Contact Info) Description 11/26/2023 Telephone [facility] MEDICINE [address] [place] [address] Syl Godfrey ANP 230 [place] [address] Appointment Request; [facility] Social History Tobacco Use Types [...] She mentioned that she gets OP through [facility] which she can talk with her Counselor to place a referral for psychiatrist due ALEXANDRA Magana will be retiring. I let her know ifshe gets a psychiatrist through [facility] will be perfect. * Telephone Encounter - Justina Swann - 11/26/2023 8:45 AM EDT Tc from pt requesting to r/s appt with alejandrina pyle. documented in this encounter Plan of Treatment Upcoming Encounters Date Type Department Care Team (Late st Contact Info) Description 02/01/2025 5:00 PM EDT Office Visit [facility] WALK-IN CENTER [address] [place] [address] 04/25/2025 1:00 PM EDT Office Visit [facility] OPTOMETRY [address] [place] [address] Arabella Kingston, OD 230 [place], [place] [phone] documented as of this encounter Visit Diagnoses Not on filedocumented in this encounter Additional Health Concerns Assessment Noted Time PHQ-9 Depression Total Score: 17 023 3:15 PM EDT documented as of this encounter Care Teams Hall Supervisor Relationship Specialty Start Date End Date Syl Godfrey ANP 230 [place] [address] PCP - General Family Medicine 04/05/20 documented as of this encounter
--- OUTSIDE RECORDS SUMMARY | 2025-02-01 14:50 | XMS_ITS | Encounter Summary ---
Author Organization [employer] Address [address] [facility] [address] 7[address] [place] [address] Care Team Providers Care Outsoles Channel Opener Name Role Phone Syl Godfrey BRIANNA Primary Care Provider [phone] Encounter Details Date Type Department Care Team [...] PM EDT Office Visit [facility] WALK-IN CENTER 230 [place] [address] 04/25/2025 1:00 PM EDT Office Visit [facility] OPTOMETRY [address] [place] [address] Thee, Arabella, OD 230 [place] [address] documented as of this encounter Visit Diagnoses Not on filedocumented in this encounter Additional Health Concerns Assessment Noted Time PHQ-9 Depression Total Score: 16 024 1:50 PM EDT documented as of this encounter Care Teams Outsoles Channel Opener Relationship Specialty Start Date End Date Syl Godfrey ANP 230 [place] [address] PCP - General Family Medicine 04/05/20 documented as of this encounter
--- OUTSIDE RECORDS SUMMARY | 2025-02-01 14:50 | XMS_ITS | Encounter Summary ---
Author Organization [employer] Address 75 [facility] 7t [place] [address] Care Team Providers Care Senior Loss Control Specialist Name Role Phone Bekah Syl REED Primary Care Provider [phone] Reason for Visit * Reason Comments Med Refill Encounter Details Date Type Department Care Team ([facility] st Contact Info) Description 03/08/2024 Refill [facility] MEDICINE [address] [place] [address] Meghana Cloud MD [address] [place] [address] Benign essential HTN Social History Tobacco Use [...] Description 02/01/2025 5:00 PM EDT Office Visit [facility]ALK[facility] [address] [place] [address] 04/25/2025 1:00 PM EDT Office Visit [facility] OPTOMETRY [address] [place] [address] Thee, Arabella, OD 230 [place] [address] documented as of this encounter Visit Diagnoses Diagnosis Benign essential HTN documented in this encounter Additional Health Concerns Assessment Noted Time PHQ-9 Depression Total Score: 16 024 1:50 PM EDT documented as of this encounter Care Teams Senior Loss Control Specialist Relationship Specialty Start Date End Date Syl Godfrey ANP 230 [place] [address] PCP - General Family Medicine 04/05/20 documented as of this encounter
--- OUTSIDE RECORDS SUMMARY | 2025-02-01 14:50 | XMS_ITS | Clinical Summary ---
Author Organization [employer] Address [address] [facility] 7t [place] [address] Care Team Providers Care Coarse Wire Drawer Name Role Phone Bekah Drake REED Primary Care Provider [phone] Allergies Active Allergy Reactions Criticality Noted Date [...] 3 02/16/20 24 Active ibuprofen 800 MG tabletIndicat ions:Other chronic pain TAKE 1 TABLET BY MOUTH 3 TIMES DAILY. 60 tablet 1 04/30/20 24 Active atorvastatin (Lipitor) 40 MG tabletIndicat ions:Hypertri glyceridemia TAKE 1 TABLET BY MOUTH EVERY DAY 90 tablet 3 05/27/20 24 Active Multiple Vitamin (multivitamin ) tablet TAKE 1 TABLET BY MOUTH EVERYDAY IN THE MORNING 90 tablet 1 12/11/19 25 Active buPROPion XL (Wellbutrin XL) 300 MG 24 hr tabletIndicat ions:Bipolar 2 disorder (CMS/HCC) Take 1 tablet (300 mg) by mouth in the morning. 90 tablet 1 12/30/19 25 Active melatonin 5 MG tabletIndicat ions:Primary insomnia TAKE 1 TABLET BY MOUTH AT BEDTIME NEEDED FOR INSOMNIA 30 tablet 5 12/30/19 25 Active traZODone (Desyrel) 300 MG tablet Take 300 mg by mouth at bedtime. Active omega-3 acid ethyl esters (Lovaza) 1 g capsuleIndica tions:Hypertr iglyceridemia Take 1 capsule (1 g) by mouth 2 times daily. 60 capsule 11 02/01/20 026 Active potassium chloride CR (Klor-Con M20) 20 MEQ ER tablet Take 2 pills immediately today, then take 1 tablet in the morning and come to check potassium. Do not crush or chew. 3 tablet 02/01/20 25 Active omega-3 acid ethyl esters (Lovaza) 1 g capsuleIndica tions:Hypertr iglyceridemia Take 1 capsule (1 g) by mouth 2 times daily. 60 capsule 11 01/26/20 24 025 Discontinued(Re order (will not trigger notification to Pharmacy)) hydroCHLOROth iazide 12.5 MG tabletIndicat ions:Benign essential HTN TAKE 1 TABLET BY MOUTH EVERY DAY 90 tablet 10/21/19 025 Discontinued(Si de effects) traZODone (Desyrel) 150 MG tabletIndicat ions:Primary insomnia TAKE 1 TABLET BY MOUTH EVERYDAY AT BEDTIME 30 tablet 2 11/30/19 025 Discontinued(Do se adjustment) Tirzepatide-W eight Management (Zepbound) 2.5 MG/0.5ML solution auto-injector Indications:B WV 24.0-24.9, adult,History of obesity Inject 0.5 mL (2.5 mg) under the skin 1 (one) time per week. 2 mL 12/08/19 25 025 Discontinued( erapy completed) QUEtiapine (SEROquel) 300 MG tablet TAKE 1 TABLET BY MOUTH EVERYDAY AT BEDTIME 90 tablet 12/24/19 025 Discontinued( erapy completed) oxyCODONE-kerri taminophen (Percocet) 7.5-325 MG tabletIndicat ions:Other chronic pain Take 1 tablet by mouth [...] and [place] . Might need referral to [facility] even if Mammo and [place] [...] organization. Date Type Department Care Team Description 02/01/2025 Travel 02/01/2025 Orders Only [facility] [place] [address] Drake Gudino ANP Hypokalemia (Primary Dx) 01/31/2025 1:30 PM EDT Office Visit [facility] [place] [address] Drake Gudino ANP Hypertriglyceridemia (Primary Dx); Benign essential HTN; Screening for colorectal cancer; Bipolar 2 disorder (CMS/HCC); Routine physical examination; Screening for colon cancer; Flushing reaction; Dietary counseling; Exercise counseling; Hypokalemia 01/31/2025 Telephone [facility] [place] [address] Michelle Chapman MD 01/31/2025 Results Follow-Up [facility] [place] [address] Drake Gudino ANP Basic Metabolic Panel 01/31/2025 Orders Only [facility] [place] [address] Michelle Chapman MD Hypokalemia (Primary Dx) 01/31/2025 Travel 01/30/2025 Travel 01/28/2025 Telephone [facility] [place] [address] Drake Gudino ANP CHART PREP 01/24/2025 Patient Outreach [facility] [address] [place] [address] Drake Gudino ANP Pre-visit Planning (SDOH unable to reach LVM) 01/17/2025 Orders Only [facility] [place] [address] Drake Gudino ANP Bipolar 2 disorder (CMS/HCC) (Primary Dx); Primary insomnia 01/10/2025 Refill [facility] [address] [place] [address] Alanis Agrawal RN Other chronic pain (Primary Dx) 12/29/2024 Refill [facility] [address] [facility] [place] [address] Drake Gudino ANP 12/29/2024 Refill [facility] [address] [facility] [place] [address] Drake Gudino ANP Hypertriglyceridemia 12/29/2024 Refill [facility] [address] [facility] [place] [address] Drake Gudino ANP Bipolar 2 disorder (CMS/HCC); Primary insomnia 12/29/2024 Refill [facility] [address] [facility] [place] [address] Drake Gudino ANP 12/29/2024 Refill [facility] [address] [facility] [place] [address] Drake Gudino ANP Primary insomnia 12/29/2024 Refill [facility] [address] [facility] [place] [address] Drake Gudino ANP Primary insomnia 12/29/2024 Refill [facility] [address] [facility] [place] [address] Michelle Chapman MD 12/27/2024 Orders Only [facility] [address] [facility] [place] [address] Drake Gudino ANP Unspecified skin changes (Primary Dx) 12/23/2024 Refill [facility] [address] [facility] [place] [address] Drake Gudino ANP 12/13/2024 Orders Only [facility] [address] [facility] [address] Drake Gudino ANP 12/10/2024 Refill [facility] [address] [facility] [address] Drake Gudino ANP 12/09/2024 Telephone [facility] [address] [facility] [address] Drake Gudino ANP Medication Question 12/07/2024 2:00 PM EDT Clinical Support [facility] [address] [facility] [place] [address] Love Moody RN Change in weight 12/07/2024 Travel 12/02/2024 Refill [facility] [address] [place] [address] Alanis Agrawal RN Arthritis of right subtalar joint (Primary Dx) 11/29/2024 1:00 PM EDT Telemedicine [facility] [address] [place] [address] Drake Gudino ANP Hypokalemia (Primary Dx); Primary insomnia; BMI 24.0-24.9, adult; History of obesity 11/29/2024 Travel 11/28/2024 Travel 11/26/2024 Population Health Risk Score [facility] ([facility]) Department [address] [place] [phone] Provider, Population Health Generic 11/22/2024 Travel 11/22/2024 Telephone [facility] [address] [place] [address] Drake Gudino ANP Chart Prep 11/19/2024 Orders Only [facility] [address] [place] [address] Drake Gudino ANP 2024 Refill [facility] [address] [place] [address] Drake Gudino ANP Primary insomnia 11/15/2024 Telephone [facility] [address] [place] [phone] Miranda Winkler DO 11/12/2024 Patient Outreach [address] [address] Drake Gudino ANP Pre-visit Planning (Pre-visit planning - LVM ) 11/11/2024 3:40 PM EST Office Visit [facility] [address] [place] [phone] Miranda Winkler DO Acute URI (Primary Dx) 11/11/2024 Telephone [facility] [address] [place] [phone] Miranda Winkler DO BANK TELLER PHONE TRIAGE from Last 3 Months Immunizations [...] Description 02/01/2025 5:00 PM EDT Office Visit [facility] [address] [place] [address] 04/25/2025 1:00 PM EDT Office Visit [facility] [address] [place] [address] Thee, Arabella, OD [address] [place] [address] Health Maintenance Due Date Last Done Comments [...] Refused) Disability Screening 01/31/2026 01/31/2025 Tobacco Screening 02/01/2026 02/01/2025 Mammogram 03/04/2026 03/04/2024, 02/13, 02/25/2023, Additional history [...] Associated Diagnosis Comments BASIC METABOLIC PANEL Routine 01/31/2025 2:25 PM EDT Hypokalemia BASIC METABOLIC PANEL Routine 11/16/2024 3:22 PM [...] Maintenance Results * (ABNORMAL) Basic Metabolic Panel (01/31/2025 2:25 PM EDT) Only the most recent of3 resultswithin the time period is included. Sodium 142 135 - 145 mmol/L [facility] Potassium 2.9(LL) 3.3 - 5.1 mmol/L [facility] Comment:Critical value for t est(s): POTS Results called to and readback by: DR. CHAPMAN Person calling: RICHARD Date: 01/31/25Time: 1708 Chloride 100 96 - 108 mmol/L [facility] Carbon Dioxide 35(H) 22 - 29 mmol/L [facility] Anion Gap 10(L) 12 - 20 [facility] Urea Nitrogen (BUN) 15 9 - 16 mg/dL [facility] Creatinine, Serum 0.91 0.5 - 1.4 mg/dL [facility] Estimated Glomerular Filt Rate >60 [facility] Comment:Chronic Kidney Disea se: Estimated GFR < 60 mL/min/1.96o2Rzbnpz Kidney Disease: Estimated GFR < 15 mL/min/1.73m2 Glucose 73 60 - 115 mg/dL [facility] Calcium 9.2 8.4 - 10.2 mg/dL [facility] Blood Venous blood specimen / Unknown 01/31/2025 2:25 PM EDT 01/31/2025 4:04 PM EDT Drake Gudino [facility] LAB BLOOD ORDERABLES Edited Resu lt - Final Performing Organization Address [facility] Co de Phone Number [facility] [address] [place] [phone] * TSH W/Reflex to FT4 (11/11/2024 4:06 PM EST) TSH reflex Free T4 0.66 0.32 - 4.0 uIU/mL [facility] Blood Venous blood specimen / Unknown 11/11/2024 4:06 PM EST 11/11/2024 6:11 PM EST Drake Gudino ANP LAB BLOOD ORDERABLES Final Resul t Performing Organization Address [facility] Co de Phone Number [facility] [address] [place] [phone] * Insulin (11/11/2024 4:06 PM EST) Insulin 5 2 - 29 uU/mL [facility] Comment:This test was perfor med using the Feedgen chemiluminescentmethod. Values obtained from different assay methods cannot beused interchangeably. This insulin assay shows a possiblecross-reactivity with antibodies generated against insulin(immunoreactive insulin and some patients treated withbovine or porcine insulin). Insulin levels may be measuredlower in patients with insulin autoimmune syndrome orfamilial high pro-insulinemia. Blood Venous blood specimen / Unknown 11/11/2024 4:06 PM EST 11/11/2024 6:11 PM EST [facility] LAB BLOOD ORDERABLES Final Resul t Performing Organization Address [facility] [[email or web address]] de Phone Number [facility] [address] [place] [phone] * Hemoglobin and Hematocrit (11/11/2024 4:06 PM EST) Hemoglobin 13.4 12.0 - 16.0 g/dl [facility] Hematocrit 38.9 37.0 - 47.0 % [facility] Blood Venous blood specimen / Unknown 11/11/2024 4:06 PM EST 11/11/2024 6:11 PM EST [facility] LAB BLOOD ORDERABLES Final Resul t Performing Organization Address [facility] [[email or web address]] de Phone Number [facility] [address] [place] [phone] * Hemoglobin A1c (11/11/2024 4:06 PM EST) Hemoglobin A1c 5.1 <6.0 % [facility] Comment:Hemoglobin A1C Refer ence Range Adults: 4.8 - 6.0 % Non diabetic: < 6.0 % Goal: < 7.0 %Additional Action Suggested: > 8.0 %Note: Hemoglobin A1c results are invalid for patients with abnormal amounts of HbF. Blood transfusions may impact the HbA1c concentration in the patient sample. Estimated Average Glucose 100 mg/dL [facility] Comment:eAG = Estimated ave rage glucose which is %A1C expressed asaverage glucose, using the formula of the H4W-XehruejByjyein Glucose study (ADAG), Diabetes Care, Vol.31,#8,2007 Blood Venous blood specimen / Unknown 11/11/2024 4:06 PM EST 11/11/2024 6:11 PM EST Drake Gudino ANP LAB BLOOD ORDERABLES Final Resul t Performing Organization Address [facility]/ZIP Co de Phone Number [facility] [address] [place] [phone] * (ABNORMAL) Lipid Panel, Standard (11/11/2024 4:06 PM EST) Triglycerides 108 <150 mg/dL [facility] Comment:Desirable Triglyceri de: less than 150 mg/dLBorderline High Triglyceride 150-199 mg/dLHigh Triglyceride: 200-499 mg/dLVery High Triglyceride: greater than or equal to 5OO mg/dL Cholesterol 148 <200 mg/dL [facility] Comment:Desirable Cholestero l: less than 200 mg/dLBorderline High Cholesterol: 200-239 mg/dLHigh Cholesterol: greater than 239 mg/dL LDL Cholesterol Calculated 97 <100 mg/dL [facility] Comment:Desirable LDL: less than 100 mg/dLNear Optimal/Above Optimal LDL: 110- 129 mg/dLBorderline High LDL: 130-159 mg/dLHigh LDL: 160-189 mg/dLVery High LDL: greater than or equal to 190 mg/dL HDL Cholesterol 30(L) >40 mg/dL [facility] Comment:Desirable HDL: great er than 40 mg/dL Note: This HDL assay may give artificially low results in patients with liver disease. Blood Venous blood specimen / Unknown 11/11/2024 4:06 PM EST 11/11/2024 6:11 PM EST Drake Gudino ANP LAB BLOOD ORDERABLES Final Resul t Performing Organization Address City/[facility]/ZIP Co de Phone Number [facility] [address] [place] [phone] * Influenza B (ID NOW Rapid Molecular) (11/11/2024 4:00 PM EST) [facility] Influenza B Negative Negative, Indeterminate [facility] Swab 11/11/2024 4:00 PM EST us Miranda Winkler DO POINT OF CARE TEST ENTER/CHRISTINE T ORDERABLES Final Result Performing Organization Address [facility] [[email or web address]] de Phone Number [facility] [address] [place] [phone] * Influenza A (ID NOW Rapid Molecular) (11/11/2024 4:00 PM EST) [facility] Influenza A Negative Negative, Indeterminate [facility] Swab 11/11/2024 4:00 PM EST Miranda Winkler DO POINT OF CARE TEST ENTER/CHRISTINE T ORDERABLES Final Result Performing Organization Address [facility] Co de Phone Number [facility] [address] [place] [phone] * POCT Rapid COVID Ag (11/11/2024 4:00 PM EST) [facility] Rapid COVID Ag Negative [facility] Swab 11/11/2024 4:00 PM EST us Miranda Winkler DO POINT OF CARE TEST ENTER/CHRISTINE T ORDERABLES Final Result Performing Organization Address [facility] Phone Number [facility] [address] [place] [phone] * POCT rapid strep A manually resulted (11/11/2024 4:00 PM EST) [facility] Rapid Strep A Screen Negative Negative, None Detected [facility] Swab 11/11/2024 4:00 PM EST Miranda Winkler DO POINT OF CARE TEST ENTER/CHRISTINE T ORDERABLES Final Result [facility] [address] [place] [phone] * BI Mammogram Screening Tomosynthesis Bilateral (03/04/2024 1:16 PM EDT) Anatomical Region Laterality Modality Breast Bilateral Mammography 03/04/2024 1:16 PM EDT Narrative 04/02/2024 1:52 PM EDT ? [facility] [place] ? [address] ?[place] [address] ? Mammography Report ? Signed ? Patient: Dilia Boateng ?MR#: [id number] ?? [id number] ? : 1965 ?Acct:[id number] ? Age/Sex: 58 / F ?ADM Date: 03/04/24 ? Loc: HO.MAMMO ? Attending Dr: Drake Gudino ASSISTANT CHILD CARE TEACHER ? Ordering Physician: DRAKE GUDINO NP ?Results: 2Benign Fin ?? dings ? Date of Service: 03/04/24 ?Follow Up: 1 Year From Orig ?? inal Mammogram ? Procedure(s): MM tomosynthesis screening BI ?? Accession Number(s): [id number] ? cc: DRAKE GUDINO NP ? EXAMINATION: ?? MM SCREENING DIGITAL BREAST [...] 1347 ? DD/ 1316 ? TD/TT: ? Supervisor Dock: ? Procedure Note Kristina Foster - 04/02/2024 [facility] [address] [place] [address] Dr. [place], [place] [address] Mammography Report Signed Patient: Dilia Boateng RMR#: [id number] : 1965Acct:[id number] Age/Sex: 58 / FADM Date: 03/04/24 Loc: OBDULIO Attending Dr: Drake Gudino ASSISTANT CHILD CARE TEACHER Ordering Physician: DRAKE GUDINOults: 2Bchrista chen Date of Service: 03/04/24Follow Up: 1 Year From Orig inal Mammogram Procedure(s): MM tomosynthesis screening BI Accession Number(s): [id number] cc: DRAKE GUDINO NP EXAMINATION: MM SCREENING [...] in OV> 04/02/24 1347 DD/ 1316 TD/TT: Supervisor Dock: us Drake Gudino ANP IMG BI PROCEDURES Final Result * Image-Guided Pap with Age-Based Screening Protocols (03/10/2023 11:30 AM EDT) Comment [facility] Comment: This order for age-based cervical cancer and STI screening follows ACOG guidelines(PB 168, 140, PUB379). See individual assays for performing site location. Clinical Information: None given [email or web address] LMP: NONE GIVEN [email or web address] Prev. PAP: NONE GIVEN [email or web address] Prev. BX: NONE GIVEN [email or web address] SOURCE: None given [facility] Statement Of Adequacy: SATISFACTORY FOR EVALUATION [facility] Interpretation/Re sult: [facility] Comment: Negative for intraepithelial lesion or malignancy. Atrophic pattern; predominantly parabasal cells COMMENT: [facility] Comment: This Pap test has been evaluated with computer assisted technology. Microscopic features suggestive of lubricant. Lubricant jellies may interfere with slide preparation; their use is not recommended. Android Framework Developer: [email or web address] [facility] Comment: BK,CT(ASCP) CT screening location: [address] Review Android Framework Developer: [facility] Comment: BLC,CT(ASCP) CT screening location: [address] ??[phone] (Always Message) [facility] [employer] Comment: EXPLANATORY NOTE: The Pap is a [...] HPV nRNA E6/E7 Not Detected Not Detected [facility] Comment: Methodology: Assistant Banquet Manager-Mediated Amplification This assay detects E6/E7 viral messenger RNA (mRNA) from 14 high-risk HPV types (16,18,31,33,35,39,45,51,52,56,58,59,66,68). Cervical sources are required for HPV testing. If a vaginal source from a patient who has had a total hysterectomy with removal of cervix was submitted, please contact the testing laboratory for alternative testing options. For additional information, please refer to http://education.ProFundCom.[employer] Communications/faq/ZEW370i4 (This link if provided for information/ educational purposes only.) Pap Vial 03/10/2023 11:3 0 AM EDT 03/11/2023 5:29 AM EDT us Jocelyne [facility] LAB BLOOD ORDERABLES Melissa l Result [address], [place] [phone] [facility] [address] [place] [phone] * HIV 1/2 ANTIGEN/ANTIBODY,FOURTH GENERATION W/RFL (08/08/2020 2:28 PM EST) [facility] HIV-1/2 ANTIGEN AND ANTIBODIES, 4TH GENERATION W/ [...] ? For additional information please refer to http://Map Decisions.Tiipz.com/faq/MLN887 (This link is being provided for informational/ [...] ? For additional information please refer to http://[employer] Dec[employer].Tiipz.com/faq/ESO327 (This link is being provided for informational/ educational purposes only.) ? The performance of this assay has not been clinically validated in patients less than 2 years old. ?? 08/08/2020 2:28 PM EST us Drake Gudino ANP LAB BLOOD ORDERABLES Final Resul t [facility] [address] from Last 3 Months or Most Recently Relevant to Health Maintenance Insurance [employer] Care Teams Coarse Wire Drawer Relationship Specialty Start Date End Date Drake Gudino ANP [address] [place] [address] PCP - General Family Medicine 04/05/20
--- OUTSIDE RECORDS SUMMARY | 2025-02-01 14:50 | XMS_ITS | Encounter Summary ---
Author Organization [employer] Address [address] [facility] 7t [place] [address] Care Team Providers Care Crystal Inspector Name Role Phone Syl Godfrey Primary Care Provider Reason for Visit * Reason Comments Med Refill Encounter Details Date Type Department Care Team ([facility] st Contact Info) Description 02/24/2024 Refill [facility] [address] [place] [address] Syl Godfrey ANP [address] [place] [address] Social History Tobacco Use Types Packs/Day Years [...] Description 02/01/2025 5:00 PM EDT Office Visit [facility] [address] [place] [address] 04/25/2025 1:00 PM EDT Office Visit [facility] [address] [place] [address] Thee, Arabella, OD [address] [place] [address] documented as of this encounter Visit Diagnoses Not on filedocumented in this encounter Additional Health Concerns Assessment Noted Time PHQ-9 Depression Total Score: 16 024 1:50 PM EDT documented as of this encounter Care Teams Crystal Inspector Relationship Specialty Start Date End Date Syl Godfrey ANP [address] [place] [address] PCP - General Family Medicine 04/05/20 documented as of this encounter
--- OUTSIDE RECORDS SUMMARY | 2025-02-01 14:50 | XMS_ITS | Encounter Summary ---
Author Organization [employer] Address [address] [facility] 7t [place] [address] Care Team Providers Care Mill Stenciler Name Role Phone Syl Godfrey Primary Care Provider [phone] Encounter Details Date Type Department Care Team (Late Contact Info) Description 09/20/2022 Orders Only [facility] [address] [place] [address] Syl Godfrey ANP [address] [place] [address] Healthcare maintenance (Primary Dx) Social History Tobacco [...] 5:00 PM EDT Office Visit [facility] [address] [place], [place] [phone] 04/25/2025 1:00 PM EDT Office Visit [facility] [address] [place], [place] [phone] Arabella Kingston, OD [address] [place] [address] documented as of this encounter Procedures Procedure Name Priority Date/Time Associated Diagnosis Comments LYME DISEASE AB W/REFL TO BLOT (IGG, IGM) Routine 01/22/2023 11:45 AM EDT Healthcare maintenance VITAMIN B12 Routine 01/22/2023 11:45 AM EDT Healthcare maintenance documented in this encounter Results * Lyme Disease Ab with Reflex to Blot (IgG, IgM) (01/22/2023 11:45 AM EDT) Lyme Antibody Screen <0.90 index [facility] Comment:Index Interpretation ----- < 0.90 [...] when erythemamigrans is apparent.THIS TEST WAS PERFORMED AT:[facility] [address] [phone] BALL MD Lyme Blot [facility] 01/22/2023 11:4 5 AM EDT 01/22/2023 11:45 AM EDT [facility] External Provider LAB BLO OD ORDERABLES Final Result [facility] [address] [place] [address] [phone] * Vitamin B12 (01/22/2023 11:45 AM EDT) Vitamin B12 784 200 - 900 pg/mL [facility] Comment:NORMAL 200-900 PG/ML INDETERMINATE 160-199 PG/ML DEFICIENT < 160 PG/ML 01/22/2023 11:4 5 AM EDT 01/22/2023 11:45 AM EDT [facility] External Provider LAB BLO OD ORDERABLES Final Result [facility] [address] [place] [phone] [phone] documented in this encounter Visit Diagnoses Diagnosis Healthcare maintenance- Primary documented in this encounter Care Teams Mill Stenciler Relationship Specialty Start Date End Date Syl Godfrey ANP [address] [place] [phone] PCP - General Family Medicine 04/05/20 documented as of this encounter
--- OUTSIDE RECORDS SUMMARY | 2025-02-01 14:50 | XMS_ITS | Encounter Summary ---
Author Organization [employer] Address [address] [facility] [address] [place] [address] Care Team Providers Care Radiochemical Technician Name Role Phone Syl Godfrey Primary Care Provider [phone] Reason for Visit * Reason Onset Date Comments Med Refill 12/29/2024 Encounter Details Date Type Department Care Team (Late st Contact Info) Description 12/29/2024 Refill [facility] MEDICINE [address] [place] [address] Syl Godfrey ANP [address] [place] [address] Social History Tobacco Use Types Packs/Day Years [...] Description 02/01/2025 5:00 PM EDT Office Visit [facility] [address] [place] [address] 04/25/2025 1:00 PM EDT Office Visit [facility] OPTOMET[facility] [address] [place] [address] Arabella Kingston, OD [address] [place] [address] documented as of this encounter Visit Diagnoses Not on filedocumented in this encounter Additional Health Concerns Assessment Noted Time PHQ-9 Depression Total Score: 16 024 1:50 PM EDT documented as of this encounter Care Teams Radiochemical Technician Relationship Specialty Start Date End Date Syl Godfrey ANP [address] [place] [address] PCP - General Family Medicine 04/05/20 documented as of this encounter
--- OUTSIDE RECORDS SUMMARY | 2025-02-01 14:50 | XMS_ITS | Encounter Summary ---
Author Organization [employer] Address [address] [facility] 7t [place] [address] Care Team Providers Care Wire Winding Machine Tender Name Role Phone Syl Godfrey Primary Care Provider [phone] Reason for Visit * Reason Onset Date Comments Med Refill 05/10/2024 Encounter Details Date Type Department Care Team ([facility] st Contact Info) Description 05/10/2024 Telephone [facility] MEDICINE [address] [place], [place] [phone] Syl Godfrey ANP [address] [place] [address] Med Refill Social History Tobacco Use Types [...] 5-325 MG tablet To be sent to: [facility]/pharmacy #[id number] documented in this encounter Plan of Treatment Upcoming Encounters Date Type Department Care Team (Late st Contact Info) Description 02/01/2025 5:00 PM EDT Office Visit [facility] [address] [place] [address] 04/25/2025 1:00 PM EDT Office Visit [facility] OPTOMETRY [address] [place] [address] Thee, Arabella, OD [address] [place] [address] documented as of this encounter Visit Diagnoses Not on filedocumented in this encounter Additional Health Concerns Assessment Noted Time PHQ-9 Depression Total Score: 16 024 1:50 PM EDT documented as of this encounter Care Teams Wire Winding Machine Tender Relationship Specialty Start Date End Date Syl Godfrey ANP [address] [place] [address] PCP - General Family Medicine 04/05/20 documented as of this encounter
--- OUTSIDE RECORDS SUMMARY | 2025-02-01 14:50 | XMS_ITS | Encounter Summary ---
Author Organization [employer] Address [address] [facility] [address] [place] [address] Care Team Providers Care Paper Cone Drying Machine Operator Name Role Phone Syl Godfrey Primary Care Provider [phone] Reason for Visit * Reason Onset Date Comments Med Refill 12/29/2024 Encounter Details Date Type Department Care Team (Late st Contact Info) Description 12/29/2024 Refill [facility] MEDICINE [address] [place] [address] Syl Godfrey ANP [address] [place] [address] Social History Tobacco Use Types Packs/Day Years [...] Description 02/01/2025 5:00 PM EDT Office Visit [facility] [address] [place] [address] 04/25/2025 1:00 PM EDT Office Visit [facility] OPTOMETRY [address] [place] [address] Arabella Kingston, OD [address] [place] [address] documented as of this encounter Visit Diagnoses Not on filedocumented in this encounter Additional Health Concerns Assessment Noted Time PHQ-9 Depression Total Score: 16 024 1:50 PM EDT documented as of this encounter Care Teams Paper Cone Drying Machine Operator Relationship Specialty Start Date End Date Syl Godfrey ANP [address] [place] [address] PCP - General Family Medicine 04/05/20 documented as of this encounter
--- OUTSIDE RECORDS SUMMARY | 2025-02-01 14:50 | XMS_ITS | Encounter Summary ---
Author Organization [employer] Address [address] [facility] 7[address] [place] [address] Care Team Providers Care Mortgage Processing Clerk Name Role Phone Bekah Syl REED Primary Care Provider [phone] Reason for Visit * Reason Comments Med Refill Encounter Details Date Type Department Care Team ([facility] st Contact Info) Description 02/24/2024 Refill [facility] MEDICINE [address] [place] [address] Meghana Cloud MD [address] [place] [address] Benign essential HTN Social History Tobacco Use [...] Description 02/01/2025 5:00 PM EDT Office Visit [facility] [address] [place] [address] 04/25/2025 1:00 PM EDT Office Visit [facility] OPTOMETRY [address] [place] [address] Thee, Arabella, OD [address] [place] [address] documented as of this encounter Visit Diagnoses Diagnosis Benign essential HTN documented in this encounter Additional Health Concerns Assessment Noted Time PHQ-9 Depression Total Score: 16 024 1:50 PM EDT documented as of this encounter Care Teams Mortgage Processing Clerk Relationship Specialty Start Date End Date Syl Godfrey ANP [address] [place] [address] PCP - General Family Medicine 04/05/20 documented as of this encounter
--- OUTSIDE RECORDS SUMMARY | 2025-02-01 14:50 | XMS_ITS | Encounter Summary ---
Author Organization [employer] Address [address] [facility] [address] [place] [address] Care Team Providers Care Payroll Officer Name Role Phone Syl Godfrey Primary Care Provider [phone] Reason for Visit * Reason Onset Date Comments Med Refill 12/29/2024 Encounter Details Date Type Department Care Team (Late st Contact Info) Description 12/29/2024 Refill [facility] MEDICINE [address] [place] [address] Syl Godfrey ANP [address] [place] [address] Hypertriglyceridemia Social History Tobacco Use Types Packs/Day [...] Description 02/01/2025 5:00 PM EDT Office Visit [facility] [address] [place] [address] 04/25/2025 1:00 PM EDT Office Visit [facility] OPTOMETRY [address] [place] [address] Thee, Arabella, OD [address] [place] [address] documented as of this encounter Visit Diagnoses Diagnosis Hypertriglyceridemia Pure hyperglyceridemia documented in this encounter Additional Health Concerns Assessment Noted Time PHQ-9 Depression Total Score: 16 024 1:50 PM EDT documented as of this encounter Care Teams Payroll Officer Relationship Specialty Start Date End Date Syl Godfrey ANP [address] [place] [address] PCP - General Family Medicine 04/05/20 documented as of this encounter
[2025-02-01 17:03] LABS: Anion Gap 9 (12-20); Blood Urea Nitrogen 14 mg/dL (9-16); Calcium 9.3 mg/dL (8.4-10.2); Carbon Dioxide 32 mmol/L (22-29); Chloride 103 mmol/L (96-108); Estimated Glomerular Filt Rate 57; Glucose Random 90 mg/dL (60-115); Magnesium 2.1 mg/dL (1.6-2.6); Potassium 4.1 mmol/L (3.3-5.1); Sodium 140 mmol/L (135-145)
== END 2025-02-01 13:41 | disposition home or self-care (01) ==
LOC: HO.HHCL 13:40
PROVIDERS: Visit Provider Family Medicine
DX: E87.6 Hypokalemia (principal)
CPT/HCPCS: 36415; 80048; 83735